=== PATIENT | female | born 1955 | race Caucasian/White ===

== ENCOUNTER → 2021-05-24 12:19 | Outpatient (CLI) | payer MEDICARE, SELFPAY ==
--- NOTE | ~2021-05-24 | XR_ITS ---
XR chest 2V INDICATION: Acute bronchitis. COPD. TECHNIQUE: 2 view chest. FINDINGS: 11/22/2010 There is mild bilateral interstitial prominence and peribronchial cuffing. There is no focal consoli dation, pleural effusion, or pneumothorax. The cardiomediastinal silhouette is borderline. IMPRESSION: 1. Findings most consistent with bronchiolitis versus an atypical or viral pneumonia. Reviewed, dictated and finalized at location A. N GOODS HEMMER IMPRESSION: 1. Findings most consistent with bronchiolitis versus an atypical or viral pne [facility], [place].
== END ==
PROVIDERS: PCP Family Medicine; Visit Provider Physician Assistant
DX: J44.0 Chronic obstructive pulmonary disease with (acute) lower respiratory infection (principal)
CPT/HCPCS: 71046

== ENCOUNTER 2022-08-22 08:20 | Inpatient (IN) | payer MEDICARE, SELFPAY ==
[2022-08-22] VITALS (77 sets, daily range): BP systolic 65–179; BP diastolic 44–130; PULSE 99–140; RESP 14–36; TEMP 37.4–38.1; O2SAT 90–100; BMI 32.7
--- NOTE | 2022-08-22 | ECHO_ITS ---
Patient Info Name: Marco A Sigala Age: 66 years : 1955 Gender: Female Ht: 62 in Wt: 192 lbs BSA: 1.99 m2 HR: 78 bpm BP: 154 / 57 mmHg Technical Quality: Poor Exam Date: 08/22/2022 2:02 PM Exam Location: [facility] Pulmonary Exam Room: ER 5 Patient Status: Inpatient Admit Date: 08/22/2022 Staff Ordering Physician: Chris Sierra MD Broiler Supervisor: Tisha Parker RDCS Attending Provider: Vazquez Gregorio MD Exam Type: CA echo dop color flow w con Study Info Indications - CHF Complete two-dimensional, color flow and Doppler transthoracic echocardiogram is performed with contrast to opacify the left ventricle and to improve the deliniation of the left ventricle endocardial borders. Contrast/Agitated Saline Contrast/Ag. Saline: Definity Amount: 3.00 ml Administered By: Tisha Parker [facility] Existing IV Access: Yes IV Access Condition: patent with no signs of infiltration Reason for Poor Study: patient body habitus Summary 1. Technically suboptimal study due to poor sonographic images. 2. Definity contrast administered improved wall motion interpretation. 3. Left ventricular chamber dimension is normal. 4. Left ventricular systolic function is hyperdynamic, estimated at >70%. 5. The left ventricular diastolic function is indeterminate. 6. The tricuspid valve leaflets are not well visualized. 7. Severe pulmonary hypertension, estimated pulmonary arterial systolic pressure is 62 mmHg. Left Ventricle Technically suboptimal study due to poor sonographic images. Definity contrast administered improved wall motion interpretation. Tissue doppler was not performed. Left ventricular chamber dimension is normal. Left ventricular systolic function is hyperdynamic, estimated at >70%. The left ventricular diastolic function is indeterminate. Right Ventricle Right ventricular chamber dimension is not well visualized. Left Atria Left atrial chamber dimension is normal. Right Atria Right atrial chamber dimension is not well visualized. Aortic Valve The aortic valve is not well visualized. Cannot determine number of aortic valve leaflets. There is no aortic valve stenosis. There is no aortic valve regurgitation. Pulmonic Valve The pulmonic valve is not well visualized. Mitral Valve There is no mitral valve stenosis. There is no mitral valve regurgitation. Tricuspid Valve The tricuspid valve leaflets are not well visualized. Severe pulmonary hypertension, estimated pulmonary arterial systolic pressure is 62 mmHg. Pericardium/Pleural There is no pericardial effusion. Inferior Vena Cava Inferior vena cava is not well visualized. Aorta The aortic root size at the sinus of Valsalva is normal. Left Ventricular Outflow Tract Name Value Normal LVOT 2D LVOT Diameter 1.99 cm Pulmonic Valve Name Value Normal PV Doppler PV Peak Gradient 4 mmHg Mitral Valve
--- NOTE | ~2022-08-22 | CT_ITS ---
EXAMINATION: CT brain wo con DATE: 08/22/2022 14:37 INDICATION: Transient alteration of awareness. TECHNIQUE: Computed tomography (CT) of the head was performed without intravenous contrast. The mA wa s adjusted according to patient size. Iterative reconstruction technique was employed. The dose-lengt h product was 605.33 mGy-cm. COMPARISON: None FINDINGS: There is no intracranial hemorrhage, acute infarction, or abnormal intracranial mass lesion . The ventricles are normal in size. The orbits are normal. There is fluid in the maxillary sinuses a nd mucosal thickening in the paranasal sinuses. The mastoid air cells are normal. IMPRESSION: 1. Normal brain. Reviewed, dictated and finalized at location A. T METAL DUCT INSTALLER APPRENTICE IMPRESSION: 1. Normal brain.
--- NOTE | ~2022-08-22 | XR_ITS ---
EXAMINATION: XR chest PICC line INDICATION: PICC insertion TECHNIQUE: Portable AP chest at 1803 hours COMPARISON: 1218 hours FINDINGS: A right upper extremity PICC has been inserted which ends with its tip at the superior cavo atrial junction. The nasogastric tube is followed as far as the stomach. Its tip is beyond the inferi or margin of the radiograph. The endotracheal tube ends approximately 3.5 cm above the alexx. A mild diffuse interstitial pattern persists. Cardiomegaly is noted. No pleural effusion or pneumothorax. IMPRESSION: 1. Right upper extremity PICC ending with its tip at the superior cavoatrial junction. 2. Diffuse lung disease, consistent with pulmonary edema and/or pneumonia. Reviewed, dictated and finalized at location F. NCT PROFESSOR IMPRESSION: 1. Right upper extremity PICC ending with its tip at the superior cavoatrial ju nction. 2. Diffuse lung disease, consistent with pulmonary edema and/or pneumonia.
--- NOTE | ~2022-08-22 | XR_ITS ---
EXAMINATION: XR chest 1V portable DATE: 08/24/2022 05:49 INDICATION: Respiratory failure. TECHNIQUE: A single frontal view of the chest was obtained. COMPARISON: Chest single view 08/23/2022, chest CT 11/12/2018 FINDINGS: There is a diffuse interstitial pattern in the lungs. No pleural effusion or pneumothorax. The heart size is normal. The endotracheal tube tip is 6.8 cm above the alexx. The nasogastric tube tip is beyond the inferior margin of the radiograph, but at least to the stomach. A right upper extre mity peripherally inserted central venous catheter (PICC) is seen with tip in the superior vena cava. IMPRESSION: 1. Improved diffuse interstitial pattern, consistent mild pulmonary edema. Reviewed, dictated and finalized at location A. OTTER
--- NOTE | ~2022-08-22 | XR_ITS ---
EXAM: XR abdomen NG/feed tube insert DATE: 08/26/2022 16:17 HISTORY: OG placement . COMPARISON: X-ray chest, same date; x-ray abdomen 08/22/2022. FINDINGS: OG tube, tip and side port in the gastric body. Reticular opacities in the lung bases. Nor mal partially visualized bowel gas pattern. No organomegaly. No abnormal abdominal calcification. Deg enerative changes in the spine. IMPRESSION: OG tube, in good position. Reviewed, dictated and finalized at location K. E PLANER IMPRESSION: OG tube, in good position.
--- NOTE | ~2022-08-22 | XR_ITS ---
EXAMINATION: XR chest 1V portable DATE: 08/25/2022 06:04 INDICATION: Respiratory failure TECHNIQUE: frontal view of the chest was obtained. COMPARISON: Chest radiograph dated 08/24/2022 FINDINGS: Endotracheal tube tip 4.8 cm above the alexx. Nasogastric tube extends below the left hemidiaphragm with distal tip collimated off the study. Pulmonary vascular congestion with decrease in the prior mild bilateral increased interstitial patter n. No focal airspace opacities, pleural effusion or pneumothorax. The cardiomediastinal silhouette is normal. IMPRESSION: 1. Near resolution of the diffuse mildly increased interstitial pattern consistent with improving pul monary edema. Reviewed, dictated and finalized at location A. OUT WORKER IMPRESSION: 1. Near resolution of the diffuse mildly increased interstitial pattern consist ent with improving pulmonary edema.
--- NOTE | ~2022-08-22 | US_ITS ---
EXAMINATION: US arterial ankle brachial ind DATE: 08/22/2022 16:40 INDICATION: Peripheral arterial disease. TECHNIQUE: Segmental pressures and plethysmographic and Doppler waveforms of the brachial and lower e xtremity arteries were obtained. COMPARISON: None. FINDINGS: Right and left brachial artery pressures of 101 mm Hg and 91 mm Hg, respectively, are concordant (nor mal difference <= 30 mmHg). The right ankle-brachial index (WILD) is 0.78 (normal >= 0.9-1.0). The right great toe-brachial index (TBI) is 0.29 (normal >= 0.65). Arterial Doppler waveforms are biphasic at the ankle. The left WILD is 0.66. The left TBI is 0.35. Arterial Doppler waveforms are biphasic in posterior tibi al artery and monophasic in dorsalis pedis. IMPRESSION: 1. Mildly decreased right WILD and moderately decreased left WILD, consistent with arterial occlusive d isease. Reviewed, dictated and finalized at location A. ICULUM AND ASSESSMENT DIRECTOR IMPRESSION: 1. Mildly decreased right WILD and moderately decreased left WILD, consistent wit h arterial occlusive disease.
--- NOTE | ~2022-08-22 | XR_ITS ---
XR abdomen NG/feed tube insert INDICATION: Evaluate NG tube position. TECHNIQUE: Limited KUB perform for evaluating NG tube . COMPARISON: No prior studies for comparison. FINDINGS: NG tube tip in the proximal duodenum. Visualized bowel gas pattern is unremarkable. IMPRESSION: 1: NG tube tip in the proximal duodenum. Reviewed, dictated and finalized at location B. D HELP
--- NOTE | ~2022-08-22 | XR_ITS ---
Portable chest x-ray Comparison: 08/27/2022 Clinical History: Respiratory failure Findings: Endotracheal tube, NG tube, and right-sided PICC line are in place. Mild diffuse interstit ial pattern is unchanged. No pleural effusion or pneumothorax. Cardiomediastinal silhouette is stabl e. Bones and soft tissues are unremarkable. Impression: Stable interstitial pattern in the lungs. Correlate for chronic interstitial disease and/or interstit ial edema or infection. Support tubes, as above. Reviewed, dictated and finalized at location . INSTALLER Impression: Stable interstitial pattern in the lungs. Correlate for chronic interstitial di sease and/or interstitial edema or infection. Support tubes, as above.
--- NOTE | ~2022-08-22 | XR_ITS ---
EXAMINATION: XR chest 1V portable DATE: 08/27/2022 05:25 INDICATION: Respiratory failure TECHNIQUE: frontal view of the chest was obtained. COMPARISON: Chest radiograph dated 08/26/2022 FINDINGS: Endotracheal tube tip 3.2 cm above the alexx. Nasogastric tube extends below the left hemidiaphragm with distal tip collimated off the study. Persistent diffuse increased interstitial pattern with peribronchial cuffing. No pleural effusion or pneumothorax. The cardiomediastinal silhouette is normal. IMPRESSION: 1. Unchanged diffuse increased interstitial pattern with peribronchial cuffing, most likely mild pulm onary edema. Reviewed, dictated and finalized at location A. NESS OBJECTS CONSULTANT IMPRESSION: 1. Unchanged diffuse increased interstitial pattern with peribronchial cuffing, most likely mild pulmonary edema.
--- NOTE | ~2022-08-22 | XR_ITS ---
EXAMINATION: XR chest 1V portable DATE: 08/26/2022 06:30 INDICATION: Respiratory failure TECHNIQUE: frontal view of the chest was obtained. COMPARISON: Chest radiograph dated 08/25/2022 FINDINGS: Endotracheal tube tip 4.5 cm above the alexx. Nasogastric tube extends below the left hemidiaphragm with distal tip collimated off the study. Right upper extremity peripherally inserted central venous catheter (PICC) tip at the mid superior vena cava. Pulmonary vascular congestion with unchanged diffuse increased interstitial pattern consistent with p ulmonary edema. New small patchy airspace opacity left midlung zone. No pleural effusion or pneumotho rax. The cardiomediastinal silhouette is normal. IMPRESSION: 1. New patchy airspace opacity left midlung zone which could represent atelectasis, pneumonia or janny fact of superimposed tubing external to the patient 2. Pulmonary vascular congestion and mild pulmonary edema. Reviewed, dictated and finalized at location A. TABLE HARVEST WORKER IMPRESSION: 1. New patchy airspace opacity left midlung zone which could represent atelecta sis, pneumonia or artifact of superimposed tubing external to the patient 2. Pulmonary vascular congestion and mild pulmonary edema.
--- NOTE | ~2022-08-22 | XR_ITS ---
EXAMINATION: XR chest ET placement DATE: 08/26/2022 16:17 INDICATION: Intubation. TECHNIQUE: A single frontal view of the chest was obtained. COMPARISON: Chest single view at 5:35 AM, chest CT 11/12/2018 FINDINGS: There is a diffuse interstitial pattern in the lungs. No pleural effusion or pneumothorax. The heart size is normal. The endotracheal tube tip is 3.2 cm above the alexx. The nasogastric tube tip is beyond the inferior margin of the radiograph, but at least to the stomach. IMPRESSION: 1. Interstitial pattern in the lungs, likely mild pulmonary edema. Reviewed, dictated and finalized at location A. L FRONT DESK CLERK
--- NOTE | ~2022-08-22 | XR_ITS ---
Portable chest x-ray Comparison: 05/24/2021 Clinical History: Shortness of breath Findings: There is central congestive change with mild to moderate pulmonary edema. Patient's head o bscures the upper mediastinum and medial lung apices. No pleural effusions. Cardiomediastinal silhou ette is stable. Bones and soft tissues are unremarkable. Impression: Central congestive change and mild to moderate pulmonary edema. Reviewed, dictated and finalized at location . ATOR PILOT Impression: Central congestive change and mild to moderate pulmonary edema.
--- NOTE | ~2022-08-22 | US_ITS ---
EXAMINATION: US renal BI DATE: 08/22/2022 16:03 INDICATION: Acute kidney injury TECHNIQUE: Multiple grayscale and Doppler ultrasound images of the kidneys were obtained. COMPARISON: None. FINDINGS: The right kidney measures 10.6 x 4.1 x 4.2 cm. The left kidney measures 10.2 x 4.9 x 4.7 cm . The kidneys demonstrate normal parenchymal echogenicity. There is no hydronephrosis. The bladder is decompressed by Dai catheter. IMPRESSION: 1. Normal kidneys without hydronephrosis. Reviewed, dictated and finalized at location F. ICATION INTEGRATOR
--- NOTE | ~2022-08-22 | XR_ITS ---
EXAMINATION: XR chest 1V portable DATE: 08/23/2022 05:34 INDICATION: Respiratory failure. TECHNIQUE: A single frontal view of the chest was obtained. COMPARISON: Chest single view 08/22/2022, chest CT 11/12/2018 FINDINGS: There are mild airspace opacities in the lower lung zones. No pleural effusion or pneumotho rax. The heart size is normal. The endotracheal tube tip is 4.2 cm above the alexx. The nasogastric tube tip is beyond the inferior margin of the radiograph, but at least to the stomach. A right upper extremity peripherally inserted central venous catheter (PICC) is seen with tip at the superior cavoa trial junction. IMPRESSION: 1. Mild airspace opacities in the lower lung zones, consistent with atelectasis versus pneumonia. Reviewed, dictated and finalized at location A. RITY OFFICER
--- NOTE | ~2022-08-22 | XR_ITS ---
Portable chest x-ray Comparison: 08/28/2022 Clinical History: COPD Findings: Endotracheal tube, NG tube, and right PICC line are in satisfactory positions. Stable diff use interstitial prominence in the lungs. Cardiomediastinal silhouette is stable. Bones and soft tis sues are unremarkable. Impression: Stable COPD and/or chronic interstitial disease. Stable support tubes. Reviewed, dictated and finalized at location . APPLICATOR Impression: Stable COPD and/or chronic interstitial disease. Stable support tubes.
--- NOTE | ~2022-08-22 | XR_ITS ---
XR chest ET placement 08/22/2022 12:21 Indication: Postintubation Procedure: AP portable chest Comparison: Comparison to multiple prior studies sequentially, with oldest reviewed study dated 05/22. Findings: Endotracheal tube 4.2 cm above the alexx. NG tube passes into the stomach, tip not visuali zed. Borderline heart size. Bilateral diffuse interstitial infiltrates. No pleural effusion or pneumo thorax. Impression: 1: Diffuse bilateral interstitial infiltrates which may represent edema or pneumonia. Reviewed, dictated and finalized at location B. ICAL PROGRAMMER Impression: 1: Diffuse bilateral interstitial infiltrates which may represent edema or pneu monia.
--- NOTE | 2022-08-22 08:34 | PC.NURSE ---
pt keeps removing nasal cannula. educated pt on the importance of wearing oxygen. pt states she understands, but hates wearing it. pt wearing nasal cannula at this time.
--- NOTE | 2022-08-22 09:01 | ECG_ITS ---
Measurements Intervals [place] Rate: 139 P: 57 OR: 160 QRS: 138 QRSD: 64 T: 46 QT: 267 QTc: 406 Interpretive Statements SINUS TACHYCARDIA RIGHT AXIS DEVIATION POOR R WAVE PROGRESSION, ANTERIOR LEADS MINIMAL Q WAVES- INFERIOR LEADS ABNORMAL ECG NO PREVIOUS ECG AVAILABLE FOR COMPARISON Electronically Signed On 08-22-2022 10:02:20 BLASTING CONTRACT MAN by Eddie Gil D.O.
--- NOTE | 2022-08-22 09:04 | ED.AMS ---
HPI - Altered Mental Status General Chief Complaint: Altered Mental Status <Kaylynn Frank PA-C - Last Filed: 08/22/22 15:02> Stated Complaint: Altered mental status <LUKASZ Huang Last Filed: 08/22/22 15:02> Time Seen by Provider: 08/22/22 08:57 <LUKASZ Huang Last Filed: 08/22/22 15:02> History of Present Illness HPI narrative: Patient is a 66-year-old female with a history of COPD and medication noncompliance here with her daughter for evaluation of altered mental status. Daughter states that patient has not been eating or drinking her normal amount and has been more confused than usual. Patient was found to be satting in the low 80s on room air when EMS came to the residence and was placed on O2, not tolerating nonrebreather mask. She still smokes. Has been complaining of a productive cough, generalized malaise for the past month or so. She has no home O2 requirement. <LUKASZ Huang Last Filed: 08/22/22 15:02> Related Data Allergies/Adverse Reactions: Allergies Allergy/AdvReac Type Severity Reaction Status Date / Time azithromycin Allergy Intermediate HIVES Verified 08/22/22 10:41 acetaminophen Allergy Mild abd Verified 08/05/22 10:51 cramping coconut Allergy Mild Hives Verified 08/22/22 09:15 <LUKASZ Huang Last Filed: 08/22/22 15:02> Review of Systems Review of Systems: Gen.: Denies fevers or chills Eyes: Denies eye pain or visual change ENT: Denies congestion Respiratory: Reports shortness of breath and cough CV: Denies chest pain or palpitations GI: Denies abdominal pain nausea, emesis or diarrhea denies burning, urgency, frequency or hematuria Musculoskeletal: Denies back pain or muscle pain Neuro: Denies numbness, tingling, weakness or focal weakness Skin: Denies rash Except as documented, all other systems reviewed and negative <LUKASZ Huang Last Filed: 08/22/22 15:02> [facility] Past Medical History Medical History: Medical History Allergic rhinitis Asthma Atherosclerotic heart disease of [place] coronary artery without angina pectoris CHF (congestive heart failure), NYHA class I Chronic obstructive pulmonary disease with (acute) exacerbation Depression Hx of skin cancer, basal cell R lower eyelid Hyperlipidemia, unspecified Nicotine dependence, cigarettes, uncomplicated <Kaylynn Frank PA-C - Last Filed: 08/22/22 15:02> Surgical History Surgical History: Surgical History History of D&C 1978 History of surgical removal of skin lesion History of tubal ligation 1988 <Kaylynn Frank PA-C - Last Filed: 08/22/22 15:02> Family History Family History: Family History Mother Renal failure Father Cancer Acute myocardial infarction Heart disease Diabetes mellitus Sibling Diabetes mellitus Anemia Crohn's colitis <Kaylynn Frank PA-C - Last Filed: 08/22/22 15:02> Social History Social History: Social History (Updated 08/22/22 @ 15:01 by Tsering Gann NP) Social History: according to her sister the patient smokes up to 2 packs of cigarettes a day. She has 3 children and is disabled. She is but her is an [id number] log truck driver. According to her sister the patient used to drink heavily but has not drank recently. She has no dominated power banking attorney. code status full code Smoking packs per day: 2 Smoking cigarettes per day: 40.0 Years smoked: 30 Smoking pack-years: 60.00 Smoking status: Current every day smoker Tobacco type: cigarettes Second hand tobacco smoke exposure: Yes Alcohol intake: unknown Alcohol use details: on occasion Substance use: unknown Substance use type: does not use Lack of Transportatio
[2022-08-22 09:40] LABS: Basophils Absolute Auto 0.1 K/mm3 (0.0-0.1); Basophils Percent Auto 0.6 % (0.2-1.2); Eosinophils Percent Auto 0.1 % (0-4.4); Hematocrit 61.2 % (37.0-47.0); Immature Granulocyte Absolute 0.05 K/mm3 (0.00-0.031); Immature Granulocyte Percent A 0.3 % (0-0.5); Lymphocytes Absolute Auto 0.71 K/mm3 (0.9-3.2); Lymphocytes Percent Auto 4.6 % (18.3-44.2); Mean Corpuscular Hemoglobin 28.7 pg (26-34); Mean Corpuscular Volume 92.4 fl (80-100); Mean Platelet Volume 11.1 fl (7.4-10.4); Monocytes Absolute Auto 0.8 K/mm3 (0.1-0.6); Neutrophils Absolute Auto 13.9 K/mm3 (1.3-6.7); Neutrophils Percent Auto 89.4 % (45.5-73.1); Platelet Count Result 190 k/mm3 (150-375); Red Blood Count 6.62 M/mm3 (4.2-5.4); Red Cell Distribution Width 17.4 % (11.5-14.5); White Blood Count 15.5 K/mm3 (4.5-10.0)
--- NOTE | 2022-08-22 09:40 | PC.NURSE ---
Pt. ripping off their oxygen, Pt. not cooperating with blood draw, Pt. removed IV. ERP notified and ordered 0.25mg of Ativan via IVP verbal order readback.
[2022-08-22] MEDS: SODIUM CHLORIDE 0.9% IV 1,000 ML 999 ML IV CONT (09:43)
[2022-08-22] MEDS: LORazepam INJ (*CRX) 2 MG/ML VIAL 0.25 MG IV PUSH (09:43)
[2022-08-22 09:59] LABS: Alanine Aminotransferase 15 U/L (6-35); Alkaline Phosphatase 169 U/L (38-126); Anion Gap 9 mmol/L (8-16); Aspartate Amino Transferase 21 U/L (14-36); Bilirubin,Total 0.8 mg/dL (0.2-1.3); Blood Urea Nitrogen 23 mg/dL (7-17); Calcium 9.1 mg/dL (8.4-10.2); Carbon Dioxide 24 mmol/L (22-30); Chloride 96 mmol/L (98-107); Estimated CRCL calculation 40 ml/min; Estimated Glomerular Filt Rate 41; Glucose 135 mg/dL (65-110); Potassium 5.3 mmol/L (3.4-5.0); Sodium 129 mmol/L (137-145)
[2022-08-22] MEDS: IPRATROPIUM BR 0.02% INH SOLN 0.5 MG/2.5 ML VIAL 1 MG INHALATION (10:00)
[2022-08-22 10:12] LABS: Lactic Acid Reflex 1.5 mmol/L (0.7-2.0)
[2022-08-22 10:21] LABS: Influenza A QL RT-PCR Negative (Negative); Influenza B QL RT-PCR Negative (Negative); SARS-CoV-2 RNA PCR Negative
--- NOTE | 2022-08-22 10:30 | PC.NURSE ---
Pt. continues to be uncooperative and refusing to keep oxygen on leading to patient drop below 90%. ERP notified. ERP ordered ketamine IVP. See MAR orders.
--- NOTE | 2022-08-22 10:33 | PCRCNOTE ---
unable to obtain ABG x 3 attempts Pt. will not hold still. R.N. aware. Continuous neb tx started.
[2022-08-22] MEDS: KETAMINE HCL (*CRX) 500 MG/10 ML VIAL 50 MG IV PUSH (10:34)
[2022-08-22 11:33] LABS: Alveolar/Arterial O2 Gradient 210.8 mmHg; Base Excess ABG -9.8 mEq/l (+/-2.0); Fractional Inspired Oxygen 52 %; HCO3 ABG 17.4 mEq/l (22.0-26.0); Oxygen Content ABG 18.7 %vol (16.0-22.0); Oxygen Saturation ABG 97.3 % (95.0-100.0); Oxyhemoglobin 92.1 % THb (90.0-100.0); PCO2 ABG 42.3 mmHg (35.0-45.0); PO2 ABG 112.6 mmHg (80.0-100.0); PO2 FiO2 Ratio Arterial Blood 2.17 %; Total Hemoglobin 14.3 g/dL (12.0-18.0)
[2022-08-22 11:34] LABS: Device OTHER DEVICE; Modified Allen's Test Pass; Site Drawn RIGHT RADIAL; pH ABG 7.231 (7.350-7.450)
[2022-08-22] MEDS: DOXYCYCLINE 100 MG/NS 100 ML 100 MG/100 ML BAG IVPB ×2 (11:37→20:13)
--- NOTE | 2022-08-22 11:45 | PC.NURSE ---
Pt. uncooperative with bipap, Pt. immediately ripped off mask. ERP aware. Preparing for intubation to secure airway
--- NOTE | 2022-08-22 11:58 | PC.NURSE ---
1158 20mg etomidate given IVP 1159 60mg rocuronium given IVP 1200 Pt. intubated 7.5 et tube, 21 at the lip
[2022-08-22] MEDS: PROPOFOL IV EMULSION 100 ML 2.62 MG IV CONT (12:04)
--- NOTE | 2022-08-22 12:43 | PM.IMHP ---
H&P: HPI History of Present Illness Date/Time: 08/22/22 12:43 Chief Complaint: Altered mental status Narrative: this is a 66-year-old female patient who has a history of tobacco abuse, COPD with asthma and bronchitis, CHF and chronic hypoxia. The patient does have oxygen at home but does not use it all the time. According to her sister who is at the bedside the patient has not been eating or drinking her normal amount and has been more confused. The patient still continues to smoke at least 2 packs of cigarettes per day. Her white count is 15.5. Neutrophil 89.4. Arterial blood gases pH 7.179 CO2 72.8 PO2 75.1. Bicarb 26.5. Sodium 129 potassium 5.3 chloride 96. BUN is 23 creatinine is 1.3 no previous creatinine for comparison. The patient is negative for influenza a B and COVID. Head CT shows a normal brain. Diffuse bilateral interstitial infiltrates which may represent edema or pneumonia. Today the patient was found with O2 saturation around 80% in the ER room and the patient was placed on a BiPAP. The patient was very confused and was not tolerating the BiPAP. The patient was intubated in the emergency room. The business broker had been consulted. He came to the emergency room to evaluate the patient. The patient was given nebulizer treatments common Ativan Rocephin, doxycycline, IV fluids, and IV Lasix. the patient had clear thin secretions in her oral airway that we suction with a yonker the patient is being admitted to inpatient status on the date of service of 08/22/2022. Review of Systems Review of Systems: See HPI [facility] Past Medical History Medical History Allergic rhinitis Asthma Atherosclerotic heart disease of [place] coronary artery without angina pectoris CHF (congestive heart failure), NYHA class I Chronic obstructive pulmonary disease with (acute) exacerbation Depression Hx of skin cancer, basal cell R lower eyelid Hyperlipidemia, unspecified Nicotine dependence, cigarettes, uncomplicated Surgical History Surgical History History of D&C 1978 History of surgical removal of skin lesion History of tubal ligation 1988 Family History Family History Mother Renal failure Father Cancer Acute myocardial infarction Heart disease Diabetes mellitus Sibling Diabetes mellitus Anemia Crohn's colitis Social History Social History (Updated 08/22/22 @ 15:01 by Tsering Gann NP) Social History: according to her sister the patient smokes up to 2 packs of cigarettes a day. She has 3 children and is disabled. She is but her is an [id number] local company intermodal truck driver. According to her sister the patient used to drink heavily but has not drank recently. She has no dominated power united states attorney. code status full code Smoking packs per day: 1 Smoking cigarettes per day: 20.0 Years smoked: 30 Smoking pack-years: 30.00 Smoking status: Current every day smoker Tobacco type: cigarettes Second hand tobacco smoke exposure: Yes Alcohol intake: unknown Alcohol use details: on occasion Substance use: unknown Substance use type: does not use Lack of Transportation: YES Lack of Food: Never True Current Housing: I Have Housing Concerned About Future Housing: No Difficulty Paying Gas/Electric Bills: No Difficulty Paying for Meds: No Currently Unemployed: YES Education: Trade/Vocational Certificate Difficulty w/ Childcare or Family Care: No Living arrangements: with family Occupation/Education: unemployed Gender identity (if verbalized by the patient): Female Sexual Orientation (if Verbalized by the Patient): Straight or Heterosexual Spiritual care concerns: No Meds Home Medications and Allergies Home Medications Medication Instructions Recorded Confirmed Type diphenhydra
--- NOTE | 2022-08-22 12:50 | WPDCNINT ---
Assessment and Plan Assessment and plan (1) Acute respiratory failure: Code(s): J96.00 - Acute respiratory failure, unspecified whether with hypoxia or hypercapnia Status: Acute Assessment and Plan: Acute multifactorial Respiratory failure secondary to COPD exacerbation, CHF and possible community-acquired pneumonia patient now intubated and on mechanical ventilation chest x-ray reviewed ventilator settings reviewed. repeat ABG ordered pending Continue full mechanical ventilation support to prevent hypoxemia/hypercarbia and end organ damage. BNP pending Low tidal volume ventilation strategy to prevent volutrauma Will attempt SBT when ready to wean. Bronchodilators (2) CHF (congestive heart failure), NYHA class I: Code(s): I50.9 - Heart failure, unspecified Status: Acute Assessment and Plan: patient has history of lower extremity edema and now presented with chest x-ray suggestive of pulmonary edema BNP pending Lasix IV given check echocardiogram (3) Chronic obstructive pulmonary disease with (acute) lower respiratory infection: Code(s): J44.0 - Chronic obstructive pulmonary disease with (acute) lower respiratory infection Status: Acute Assessment and Plan: patient has history of COPD. She has long history of heavy smoking. diffuse wheezing on exam IV Solu-Medrol q.6 hours bronchodilator empiric antibiotics as below (4) Community acquired pneumonia: Code(s): J18.9 - Pneumonia, unspecified organism Status: Acute Assessment and Plan: check procalcitonin sputum and blood cultures check urine Legionella and pneumococcal antigen empiric Rocephin and doxycycline (5) Elevated serum creatinine: Code(s): R79.89 - Other specified abnormal findings of blood chemistry Status: Acute Assessment and Plan: patient presented with elevated creatinine of 1.3. baseline unknown check urine electrolytes check CK level monitor urine output electrolytes and creatinine Lasix for pulmonary edema renal ultrasound (6) Hyperkalemia: Code(s): E87.5 - Hyperkalemia Status: Acute Assessment and Plan: presented with potassium of 5.3. Likely combination of acidosis, elevated creatinine and patient also on supplemental potassium at home patient now intubated and on mechanical ventilation. repeat BMP ordered. if still elevated I will treat her (7) Altered mental status: Code(s): R41.82 - Altered mental status, unspecified Status: Acute Assessment and Plan: patient presented with confusion although the exam was nonfocal as per sign-out from ED provider now she sedated propofol check head CT and ammonia level (8) Peripheral arterial disease: Code(s): I73.9 - Peripheral vascular disease, unspecified Status: Acute Assessment and Plan: on exam patient appears to have a PAD likely secondary to heavy and long history of smoking check ABIs Plan DVT prophylaxis - Lovenox Stress ulcer prophylaxis - PPI Nutrition - NPO Code Status - Full Code I spoke to patient's sister at bedside and updated her with patient's status and current treatment plan. I answered all questions Total Critical Care Time - 45 minutes Due to a high probability of clinically significant, life threatening deterioration, the patient required my highest level of preparedness to intervene emergently and I personally spent this critical care time directly and personally managing the patient. This critical care time included obtaining a history; examining the patient; pulse oximetry; ordering and review of studies; arranging urgent treatment with development of a management plan; evaluation of patient's response to treatment; frequent reassessment; and discussions with other providers. It was exclusive of separately billable procedures and treating other patients and teaching time. Please see Assessment and Plan
[2022-08-22 12:59] LABS: Appearance Urine Cloudy (Clear); Bacteria Urine None Seen /hpf; Bilirubin Urine 2+ (Negative); Blood Urine 2+ (Negative); Color Urine Dark Yellow (Yellow); Glucose Urine UA Negative (Negative); Hyaline Casts Urine Present /lpf; Ketones Urine Negative (Negative); Leukocyte Esterase Ur Negative LEU/UL (Negative); Nitrate Urine Negative (Negative); Non Pathogenic Casts >20; Protein Urine 2+ mg/dL (Negative); Specific Grav Ur 1.019 (1.001-1.035); Squamous Epithelial Cell Urine Moderate /hpf (Few); WBC Urine 0-5 /hpf
[2022-08-22 13:07] LABS: Add Urine Microscopic? YES
[2022-08-22 13:53] LABS: Alveolar/Arterial O2 Gradient 126.4 mmHg; Base Excess ABG -4.6 mEq/l (+/-2.0); Fractional Inspired Oxygen 40 %; HCO3 ABG 26.5 mEq/l (22.0-26.0); Oxygen Content ABG 25.5 %vol (16.0-22.0); Oxygen Saturation ABG 90.9 % (95.0-100.0); Oxyhemoglobin 88.5 % THb (90.0-100.0); PO2 ABG 75.1 mmHg (80.0-100.0); PO2 FiO2 Ratio Arterial Blood 1.88 %; Total Hemoglobin 20.5 g/dL (12.0-18.0)
[2022-08-22 13:55] LABS: pH ABG 7.179 (7.350-7.450)
[2022-08-22 13:56] LABS: Arterial Blood Gas PEEP 7 cmH2O; Arterial Blood Gas Tidal Volume 400 ml; Arterial Blood Gas Vent Mode CMV; Arterial Blood Gas Ventilator rate 16 /MIN; Device VENTILATOR; Modified Allen's Test Pass; PCO2 ABG 72.8 mmHg (35.0-45.0); Site Drawn RIGHT RADIAL
[2022-08-22] MEDS: FUROSEMIDE INJ 40 MG/4 ML VIAL IV PUSH (14:17)
[2022-08-22] MEDS: methylPREDNISolone SOD SUCC 125 MG VIAL IV PUSH (14:17)
--- NOTE | 2022-08-22 14:25 | P.PNIM_ITS ---
Progress Note: A&P Assessment and Plan (1) Acute respiratory failure: Code(s): J96.00 - Acute respiratory failure, unspecified whether with hypoxia or hypercapnia Status: Acute Assessment and Plan: Acute multifactorial Respiratory failure secondary to COPD exacerbation, CHF and possible community-acquired pneumonia patient now intubated and on mechanical ventilation chest x-ray reviewed ventilator settings reviewed. repeat ABG ordered pending Continue full mechanical ventilation support to prevent hypoxemia/hypercarbia and end organ damage. BNP pending Low tidal volume ventilation strategy to prevent volutrauma Will attempt SBT when ready to wean. Bronchodilators (2) CHF (congestive heart failure), NYHA class I: Code(s): I50.9 - Heart failure, unspecified Status: Acute Assessment and Plan: patient has history of lower extremity edema and now presented with chest x-ray suggestive of pulmonary edema BNP pending Lasix IV given check echocardiogram (3) Chronic obstructive pulmonary disease with (acute) lower respiratory i nfection: Code(s): J44.0 - Chronic obstructive pulmonary disease with (acute) lower respiratory infection Status: Acute Assessment and Plan: patient has history of COPD. She has long history of heavy smoking. diffuse wheezing on exam IV Solu-Medrol q.6 hours bronchodilator empiric antibiotics as below (4) Community acquired pneumonia: Code(s): J18.9 - Pneumonia, unspecified organism Status: Acute Assessment and Plan: check procalcitonin sputum and blood cultures check urine Legionella and pneumococcal antigen empiric Rocephin and doxycycline (5) Elevated serum creatinine: Code(s): R79.89 - Other specified abnormal findings of blood chemistry Status: Acute Assessment and Plan: patient presented with elevated creatinine of 1.3. baseline unknown check urine electrolytes check CK level monitor urine output electrolytes and creatinine Lasix for pulmonary edema renal ultrasound (6) Hyperkalemia: Code(s): E87.5 - Hyperkalemia Status: Acute Assessment and Plan: presented with potassium of 5.3. Likely combination of acidosis, elevated creatinine and patient also on supplemental potassium at home patient now intubated and on mechanical ventilation. repeat BMP ordered. if still elevated I will treat her (7) Altered mental status: Code(s): R41.82 - Altered mental status, unspecified Status: Acute Assessment and Plan: patient presented with confusion although the exam was nonfocal as per sign-out from ED provider now she sedated propofol check head CT and ammonia level (8) Peripheral arterial disease: Code(s): I73.9 - Peripheral vascular disease, unspecified Status: Acute Assessment and Plan: on exam patient appears to have a PAD likely secondary to heavy and long history of smoking check ABIs Plan DVT prophylaxis - Lovenox Stress ulcer prophylaxis - PPI Nutrition - NPO Code Status - Full Code I spoke to patient's sister at bedside and updated her with patient's status and current treatment plan. I answered all questions Total Critical Care Time - 45 minutes Due to a high probability of clinically significant, life threatening deterioration, the patient required my highest level of preparedness to intervene emergently and I personally spent this critical care time directly and personally managing the patient. This critical care time inc
--- NOTE | 2022-08-22 15:04 | ADMGEN ---
This patient, Marco A Sigala, was admitted to Intensive Care Unit-8 at 1445. Patient/family oriented to hospital policies and general routines including ID bracelet, bed and alarms, visiting hours, pain management, procedures, bathroom and other care routines, personal items, smoking policy, room service/diet, and visiting hours. Information on how to activate the Rapid Response Team has been discussed. Patient/Family are encouraged to report perceived risks to care and to ask questions if they do not understand what they are told or what they should do.
[2022-08-22] MEDS: IPRATROPIUM BR 0.02% INH SOLN 0.5 MG/2.5 ML VIAL INHALATION ×2 (15:25→20:30)
[2022-08-22] MEDS: ALBUTEROL SULFATE NEB 2.5 MG/3 ML INH INHALATION ×2 (15:25→20:30)
[2022-08-22 15:56] LABS: Creatinine Urine 141.6 mg/dL
[2022-08-22 16:06] LABS: Sodium Urine Random 64 meq/L
[2022-08-22 16:13] LABS: Alveolar/Arterial O2 Gradient 57.2 mmHg; Base Excess ABG -2.6 mEq/l (+/-2.0); HCO3 ABG 23.9 mEq/l (22.0-26.0); Oxygen Content ABG 27.3 %vol (16.0-22.0); Oxygen Saturation ABG 99.1 % (95.0-100.0); Oxyhemoglobin 96.7 % THb (90.0-100.0); PCO2 ABG 47.1 mmHg (35.0-45.0); PO2 ABG 182.5 mmHg (80.0-100.0); PO2 FiO2 Ratio Arterial Blood 4.56 %; Total Hemoglobin 19.9 g/dL (12.0-18.0); pH ABG 7.324 (7.350-7.450)
[2022-08-22 16:20] LABS: Device VENTILATOR; Fractional Inspired Oxygen 60 %; Modified Allen's Test Pass; Site Drawn RIGHT RADIAL
[2022-08-22 16:22] LABS: Arterial Blood Gas PEEP 7 cmH2O; Arterial Blood Gas Tidal Volume 400 ml; Arterial Blood Gas Vent Mode CMV; Arterial Blood Gas Ventilator rate 24 /MIN
[2022-08-22 16:43] LABS: Creatinine Urine 94.3 mg/dL
[2022-08-22 16:46] LABS: Potassium Urine Random 51.1 meq/L
[2022-08-22 16:58] LABS: Ammonia < 9 umol/L (9-30)
[2022-08-22 17:03] LABS: Glucose Point of Care 186 mg/dl (65-105)
[2022-08-22 17:06] LABS: Anion Gap 6 mmol/L (8-16); Blood Urea Nitrogen 26 mg/dL (7-17); Calcium 8.6 mg/dL (8.4-10.2); Carbon Dioxide 28 mmol/L (22-30); Chloride 97 mmol/L (98-107); Creatine Kinase 48 U/L (30-135); Estimated CRCL calculation 42 ml/min; Estimated Glomerular Filt Rate 45; Glucose 144 mg/dL (65-110); Potassium 5.2 mmol/L (3.4-5.0); Sodium 131 mmol/L (137-145)
[2022-08-22 17:16] LABS: Procalcitonin 0.6 ng/mL
[2022-08-22 17:19] LABS: NT Pro B Type Natriuretic Pept 8770 pg/mL (19.9-100); Troponin I 0.305 ng/mL (0.000-0.034)
[2022-08-22 17:30] LABS: Thyroid Stimulating Hormone Reflex 0.349 uIU/mL (0.465-4.68)
[2022-08-22] MEDS: PROPOFOL IV EMULSION 100 ML 15.73 MG IV CONT (17:58)
[2022-08-22 18:28] LABS: Free T4 Free Thyroxine Reflex 1.19 ng/dL (0.78-2.19)
[2022-08-22] MEDS: NOREPINEPHRINE 8 MG/D5W 250 ML 8 MG/250 ML BAG 9.38 MG IV CONT (19:40)
[2022-08-22 21:14] LABS: Total Triiodothyronine (T3) 0.73 NG/ML (0.97-1.69)
[2022-08-22] MEDS: CENTRAL LINE FLUSH 10 ML IV PUSH (22:04)
[2022-08-23] VITALS (69 sets, daily range): BP systolic 80–119; BP diastolic 50–93; PULSE 64–117; RESP 24–28; TEMP 36.4–37.4; O2SAT 92–98
[2022-08-23 00:15] LABS: Glucose Point of Care 275 mg/dl (65-105)
[2022-08-23] MEDS: INSULIN ASPART (*BKC) 100 UNITS/ML SUB-Q ×5 (00:23→16:40)
[2022-08-23 00:45] LABS: Anion Gap 5 mmol/L (8-16); Blood Urea Nitrogen 31 mg/dL (7-17); Calcium 8.7 mg/dL (8.4-10.2); Carbon Dioxide 26 mmol/L (22-30); Chloride 101 mmol/L (98-107); Estimated CRCL calculation 50 ml/min; Estimated Glomerular Filt Rate 56; Glucose 246 mg/dL (65-110); Potassium 4.8 mmol/L (3.4-5.0); Sodium 132 mmol/L (137-145)
[2022-08-23] MEDS: ALBUTEROL SULFATE NEB 2.5 MG/3 ML INH INHALATION ×4 (02:00→20:36)
[2022-08-23] MEDS: IPRATROPIUM BR 0.02% INH SOLN 0.5 MG/2.5 ML VIAL INHALATION ×4 (02:00→20:36)
[2022-08-23] MEDS: PROPOFOL IV EMULSION 100 ML 13.11 MG IV CONT (03:00)
[2022-08-23] MEDS: NOREPINEPHRINE 8 MG/D5W 250 ML 8 MG/250 ML BAG 31.88 MG IV CONT (05:16)
[2022-08-23 06:08] LABS: Alveolar/Arterial O2 Gradient 211.5 mmHg; Base Excess ABG 0.7 mEq/l (+/-2.0); Carboxyhemoglobin 0.2 % THb (0-2.0); Fractional Inspired Oxygen 50 %; Methemoglobin ABG 0.7 %THb (0-1.5); Oxygen Content ABG 26.5 %vol (16.0-22.0); Oxygen Saturation ABG 95.7 % (95.0-100.0); PCO2 ABG 53.5 mmHg (35.0-45.0); PO2 ABG 84.8 mmHg (80.0-100.0); Reduced Hemoglobin 4.1 %THb (0-5.0); Total Hemoglobin 19.9 g/dL (12.0-18.0); pH ABG 7.337 (7.350-7.450)
[2022-08-23 06:11] LABS: Alanine Aminotransferase 15 U/L (6-35); Albumin Level 3.8 g/dL (3.5-5.1); Alkaline Phosphatase 153 U/L (38-126); Anion Gap 4 mmol/L (8-16); Arterial Blood Gas PEEP 7 cmH2O; Arterial Blood Gas Tidal Volume 400 ml; Arterial Blood Gas Vent Mode CMV; Arterial Blood Gas Ventilator rate 24 /MIN; Aspartate Amino Transferase 21 U/L (14-36); Bilirubin,Total 0.6 mg/dL (0.2-1.3); Blood Urea Nitrogen 30 mg/dL (7-17); Calcium 9.1 mg/dL (8.4-10.2); Carbon Dioxide 29 mmol/L (22-30); Chloride 97 mmol/L (98-107); Device VENTILATOR; Estimated CRCL calculation 56 ml/min; Estimated Glomerular Filt Rate > 60; Glucose 232 mg/dL (65-110); Magnesium 2.1 mg/dL (1.6-2.3); Modified Allen's Test Pass; Potassium 4.4 mmol/L (3.4-5.0); Site Drawn RIGHT RADIAL; Sodium 130 mmol/L (137-145)
[2022-08-23 06:16] LABS: Basophils Absolute Auto 0.1 K/mm3 (0.0-0.1); Basophils Percent Auto 0.4 % (0.2-1.2); Eosinophils Percent Auto 0.1 % (0-4.4); Hematocrit 57.1 % (37.0-47.0); Hemoglobin 17.9 g/dL (12.0-15.0); Immature Granulocyte Absolute 0.05 K/mm3 (0.00-0.031); Immature Granulocyte Percent A 0.3 % (0-0.5); Lymphocytes Absolute Auto 0.56 K/mm3 (0.9-3.2); Lymphocytes Percent Auto 3.8 % (18.3-44.2); Mean Corpuscular HGB Conc 31.3 g/dl (32-36); Mean Corpuscular Hemoglobin 28.7 pg (26-34); Mean Corpuscular Volume 91.7 fl (80-100); Mean Platelet Volume 11.2 fl (7.4-10.4); Monocytes Absolute Auto 0.9 K/mm3 (0.1-0.6); Monocytes Percent Auto 6.2 % (2.6-8.5); Neutrophils Absolute Auto 13.1 K/mm3 (1.3-6.7); Neutrophils Percent Auto 89.2 % (45.5-73.1); Nucleated Red Blood Cells Perc 0.1 % (0.0-0.2); Platelet Count Result 225 k/mm3 (150-375); Red Blood Count 6.23 M/mm3 (4.2-5.4); Red Cell Distribution Width 16.4 % (11.5-14.5); White Blood Count 14.7 K/mm3 (4.5-10.0)
[2022-08-23] MEDS: CENTRAL LINE FLUSH 10 ML IV PUSH ×3 (06:29→20:06)
[2022-08-23] MEDS: MIDAZOLAM HCL (*CRX) 2 MG/2 ML VIAL 4 MG IV PUSH (07:32)
--- NOTE | 2022-08-23 07:38 | WPDINTPN ---
Progress Note: A&P Assessment and Plan (1) Acute respiratory failure: Code(s): J96.00 - Acute respiratory failure, unspecified whether with hypoxia or hypercapnia Status: Acute Assessment and Plan: Acute multifactorial Respiratory failure secondary to COPD exacerbation, CHF and possible community-acquired pneumonia patient now intubated and on mechanical ventilation chest x-ray reviewed and shows improvement in bilateral diffuse infiltrates ventilator settings and ABG reviewed - increase tidal volume to 450 Continue full mechanical ventilation support to prevent hypoxemia/hypercarbia and end organ damage. BNP elevated at 8770 Low tidal volume ventilation strategy to prevent volutrauma not ready for weaning at this time (2) CHF (congestive heart failure), NYHA class I: Code(s): I50.9 - Heart failure, unspecified Status: Acute Assessment and Plan: patient has history of lower extremity edema and now presented with chest x-ray suggestive of pulmonary edema BNP 8770 Lasix IV given on admission. Hold Lasix at this time due to shock echocardiogram Summary ? 1. Technically suboptimal study due to poor sonographic images. ? 2. Definity contrast administered improved wall motion interpretation. ? 3. Left ventricular chamber dimension is normal. ? 4. Left ventricular systolic function is hyperdynamic, estimated at >70%. ? 5. The left ventricular diastolic function is indeterminate. ? 6. The tricuspid valve leaflets are not well visualized. ? 7. Severe pulmonary hypertension, estimated pulmonary arterial systolic pressure is 62 mmHg. (3) Chronic obstructive pulmonary disease with (acute) lower respiratory infection: Code(s): J44.0 - Chronic obstructive pulmonary disease with (acute) lower respiratory infection Status: Acute Assessment and Plan: patient has history of COPD. She has long history of heavy smoking. diffuse wheezing on exam continue IV Solu-Medrol continue q.6 hours bronchodilator continue empiric antibiotics as below (4) Community acquired pneumonia: Code(s): J18.9 - Pneumonia, unspecified organism Status: Acute Assessment and Plan: procalcitonin level was intermediate sputum and blood cultures are pending pending urine Legionella and pneumococcal antigen continue empiric Rocephin and doxycycline (5) Elevated serum creatinine: Code(s): R79.89 - Other specified abnormal findings of blood chemistry Status: Acute Assessment and Plan: patient presented with elevated creatinine of 1.3. baseline unknown normal CK level monitor urine output electrolytes and creatinine Lasix for pulmonary edema was given admission renal ultrasound did not show any hydronephrosis creatinine has now normalized . monitor urine output electrolytes and creatinine (6) Hyperkalemia: Code(s): E87.5 - Hyperkalemia Status: Acute Assessment and Plan: presented with potassium of 5.3. Likely combination of acidosis, elevated creatinine and patient also on supplemental potassium at home now resolved (7) Altered mental status: Code(s): R41.82 - Altered mental status, unspecified Status: Acute Assessment and Plan: patient presented with confusion although the exam was nonfocal as per sign-out from ED provider now she sedated propofol normal head CT and ammonia level (8) Peripheral arterial disease: Code(s): I73.9 - Peripheral vascular disease, unspecified Status: Acute Assessment and Plan: on exam patient appears to have a PAD likely secondary to heavy and long history of smoking ABIs confirm Mildly decreased right WILD and moderately decreased left WILD, consistent with arterial occlusive disease. (9) Hyperglycemia: Code(s): R73.9 - Hyperglycemia, unspecified Status: Acute Assessment and Plan: increase sliding scale and Lantus (10) Shock: Code(s)
[2022-08-23] MEDS: FENTANYL 2,500MCG/NS250ML(*CRX 2,500 MCG/250 ML BAG IV CONT (07:45)
[2022-08-23] MEDS: DOXYCYCLINE 100 MG/NS 100 ML 100 MG/100 ML BAG IVPB ×2 (08:46→20:00)
[2022-08-23] MEDS: cefTRIAXone 2 GM in SODIUM CHLORIDE 0.9% IV 100 ML 200 ML IVPB (08:46)
[2022-08-23] MEDS: INSULIN GLARGINE (*BKC) 100 UNITS/ML 10 UNITS SUB-Q (08:47)
[2022-08-23] MEDS: ENOXAPARIN 40 MG/0.4 ML SYRINGE SUB-Q (08:50)
[2022-08-23] MEDS: PROPOFOL IV EMULSION 100 ML 12.63 MG IV CONT ×2 (08:51→13:36)
[2022-08-23] MEDS: methylPREDNISolone SOD SUCC 125 MG VIAL 60 MG IV PUSH (08:51)
[2022-08-23] MEDS: PANTOPRAZOLE SODIUM IV 40 MG VIAL IV PUSH (08:51)
[2022-08-23] MEDS: MINERAL OIL/WHITE PETROLATUM OINTMENT 1 APPLIC EACH EYE ×2 (09:03→20:06)
[2022-08-23 09:53] LABS: Glucose Point of Care 215 mg/dl (65-105)
[2022-08-23] MEDS: ASPIRIN 325 MG TABLET FEED TUBE (10:13)
[2022-08-23 10:40] LABS: Triglycerides 143 mg/dL (<150)
--- NOTE | 2022-08-23 12:28 | PM.IMPN ---
Progress Note: A&P Assessment and Plan (1) Acute respiratory failure: Code(s): J96.00 - Acute respiratory failure, unspecified whether with hypoxia or hypercapnia Status: Acute Assessment and Plan: The patient is brought in for altered mental status. She has home O2 and wears this periodically. She continued to smoke 2ppd. ABG on admission 7.23/42/112 on 8L. She had trouble tolerating any assistance. Her condition worsened requiring intubation. CXR showing congestive changes. She was admitted to ICU. She has acute respiratory failure secondary to COPD exacerbation, CHF, untreated STAN and/or CAP. She is on neb treatments, IV steroids, abx and intermittent Lasix. CXR showing improvement. She remains intubated and sedated. Appreciate drug counselor input. (2) Shock: Code(s): R57.9 - Shock, unspecified Status: Acute Assessment and Plan: The patient's BP dropped once she was on sedation. She was started on Levophed and was titrated up to maintain stable BP. Better today. Wean Levophed as blood pressure tolerates. (3) CHF (congestive heart failure), NYHA class I: Code(s): I50.9 - Heart failure, unspecified Status: Acute Assessment and Plan: CXR suggestive of pulmonary edema and BNP 8770. Echo with EF 70% and indeterminate diastolic function. She has severe pHTN. Lasix IV given on admission. Continue periodic lasix dosing as tolerated (4) Chronic obstructive pulmonary disease with (acute) lower respiratory infection: Code(s): J44.0 - Chronic obstructive pulmonary disease with (acute) lower respiratory infection Status: Acute Assessment and Plan: She has a history of COPD from a long and continued hx of smoking. Continue IV Solu-Medrol and q.6 hours bronchodilator. Continue empiric antibiotics. (5) Community acquired pneumonia: Code(s): J18.9 - Pneumonia, unspecified organism Status: Acute Assessment and Plan: CXR as mentioned above. Procalcitonin level was intermediate. Sputum and blood cultures are pending. Urine Legionella and pneumococcal antigen also pending. Continue empiric Rocephin and doxycycline. Follow up culture results (6) Elevated serum creatinine: Code(s): R79.89 - Other specified abnormal findings of blood chemistry Status: Acute Assessment and Plan: Patient presented with elevated creatinine of 1.3. Baseline unknown. Normal CK level. Creatinine back down to normal. Suspect mild ATN. Follow (7) Hyperkalemia: Code(s): E87.5 - Hyperkalemia Status: Acute Assessment and Plan: Patient presented with potassium of 5.3. Likely combination of acidosis, elevated creatinine and patient also on supplemental potassium at home. Resolved now (8) Altered mental status: Code(s): R41.82 - Altered mental status, unspecified Status: Acute Assessment and Plan: Patient presented with confusion although the exam was nonfocal as per sign-out from ED provider. Normal head CT and ammonia level. Now she is sedated propofol. monitor closely once off sedation (9) Peripheral arterial disease: Code(s): I73.9 - Peripheral vascular disease, unspecified Status: Acute Assessment and Plan: Patient with mild to moderate PAD noted by WILD's likely secondary to heavy and long history of smoking. Medical management planned. (10) Hyperglycemia: Code(s): R73.9 - Hyperglycemia, unspecified Status: Acute Assessment and Plan: No hx of DM. She is on steroids. Continue sliding scale and Lantus. Plan DVT prophylaxis - Lovenox Stress ulcer prophylaxis - PPI Nutrition - Tube feeds Code Status - Full Code Subjective Date/time seen: 08/23/22 12:28 Interval history: 66yo female with CHF, COPD and CAD here for altered mentals status. Patient currently intubated and sedated. She is fentanyl propofol. Received a dose of Versed earlier toda
[2022-08-23 12:32] LABS: Glucose Point of Care 218 mg/dl (65-105)
[2022-08-23 15:54] LABS: Troponin I 0.157 ng/mL (0.000-0.034)
[2022-08-23 18:55] LABS: Glucose Point of Care 220 mg/dl (65-105)
[2022-08-23] MEDS: NOREPINEPHRINE 8 MG/D5W 250 ML 8 MG/250 ML BAG 9.38 MG IV CONT (18:57)
[2022-08-23 20:22] LABS: Glucose Point of Care 197 mg/dl (65-105)
[2022-08-23] MEDS: PROPOFOL IV EMULSION 100 ML 15.16 MG IV CONT (21:45)
[2022-08-24] VITALS (71 sets, daily range): BP systolic 75–118; BP diastolic 56–85; PULSE 53–122; RESP 20–24; TEMP 36.1–36.5; O2SAT 88–97
[2022-08-24 00:09] LABS: Glucose Point of Care 217 mg/dl (65-105)
[2022-08-24] MEDS: INSULIN ASPART (*BKC) 100 UNITS/ML SUB-Q ×3 (00:10→20:21)
[2022-08-24] MEDS: ALBUTEROL SULFATE NEB 2.5 MG/3 ML INH INHALATION ×4 (02:40→20:25)
[2022-08-24] MEDS: IPRATROPIUM BR 0.02% INH SOLN 0.5 MG/2.5 ML VIAL INHALATION ×4 (02:41→20:25)
[2022-08-24] MEDS: PROPOFOL IV EMULSION 100 ML 15.16 MG IV CONT (03:30)
[2022-08-24 05:13] LABS: Alveolar/Arterial O2 Gradient 181.8 mmHg; Base Excess ABG 3.2 mEq/l (+/-2.0); Carboxyhemoglobin 0.4 % THb (0-2.0); Fractional Inspired Oxygen 40 %; HCO3 ABG 25.5 mEq/l (22.0-26.0); Methemoglobin ABG 0.4 %THb (0-1.5); Oxygen Content ABG 23.7 %vol (16.0-22.0); Oxygen Saturation ABG 94.6 % (95.0-100.0); Oxyhemoglobin 93.5 % THb (90.0-100.0); PCO2 ABG 33.1 mmHg (35.0-45.0); PO2 ABG 65.3 mmHg (80.0-100.0); PO2 FiO2 Ratio Arterial Blood 1.63 %; Reduced Hemoglobin 5.7 %THb (0-5.0); Total Hemoglobin 18.1 g/dL (12.0-18.0)
[2022-08-24] MEDS: CENTRAL LINE FLUSH 10 ML IV PUSH ×3 (05:14→20:21)
[2022-08-24 05:15] LABS: Glucose Point of Care 156 mg/dl (65-105)
[2022-08-24 05:15] LABS: Arterial Blood Gas Ventilator rate 24 /MIN; Device VENTILATOR; Modified Allen's Test Pass; Site Drawn RIGHT RADIAL; pH ABG 7.505 (7.350-7.450)
[2022-08-24 05:16] LABS: Arterial Blood Gas PEEP 7 cmH2O; Arterial Blood Gas Tidal Volume 450 ml; Arterial Blood Gas Vent Mode CMV
[2022-08-24 05:21] LABS: Basophils Percent Auto 0.2 % (0.2-1.2); Hematocrit 54.4 % (37.0-47.0); Hemoglobin 17.2 g/dL (12.0-15.0); Immature Granulocyte Absolute 0.07 K/mm3 (0.00-0.031); Immature Granulocyte Percent A 0.5 % (0-0.5); Lymphocytes Absolute Auto 1.25 K/mm3 (0.9-3.2); Lymphocytes Percent Auto 9.5 % (18.3-44.2); Mean Corpuscular HGB Conc 31.6 g/dl (32-36); Mean Corpuscular Hemoglobin 29.1 pg (26-34); Mean Corpuscular Volume 91.9 fl (80-100); Mean Platelet Volume 10.7 fl (7.4-10.4); Monocytes Absolute Auto 0.8 K/mm3 (0.1-0.6); Monocytes Percent Auto 6.2 % (2.6-8.5); Neutrophils Absolute Auto 11.1 K/mm3 (1.3-6.7); Neutrophils Percent Auto 83.6 % (45.5-73.1); Platelet Count Result 192 k/mm3 (150-375); Red Blood Count 5.92 M/mm3 (4.2-5.4); Red Cell Distribution Width 16.2 % (11.5-14.5); White Blood Count 13.2 K/mm3 (4.5-10.0)
[2022-08-24] MEDS: ASPIRIN 325 MG TABLET FEED TUBE (07:45)
[2022-08-24] MEDS: FUROSEMIDE INJ 40 MG/4 ML VIAL IV PUSH (07:45)
--- NOTE | 2022-08-24 08:10 | WPDINTPN ---
Progress Note: A&P Assessment and Plan (1) Acute respiratory failure: Code(s): J96.00 - Acute respiratory failure, unspecified whether with hypoxia or hypercapnia Status: Acute Assessment and Plan: Acute multifactorial Respiratory failure secondary to COPD exacerbation, CHF and possible community-acquired pneumonia patient now intubated and on mechanical ventilation chest x-ray reviewed and shows improvement in bilateral diffuse infiltrates ventilator settings and ABG reviewed - decrease tidal volume to 400 and rate to 20 Continue full mechanical ventilation support to prevent hypoxemia/hypercarbia and end organ damage. Lasix IV x 1 today will evaluate for weaning trial later today continue Low tidal volume ventilation strategy to prevent volutrauma (2) CHF (congestive heart failure), NYHA class I: Code(s): I50.9 - Heart failure, unspecified Status: Acute Assessment and Plan: patient has history of lower extremity edema and now presented with chest x-ray suggestive of pulmonary edema BNP 8770 will give another dose of IV Lasix today echocardiogram Summary ? 1. Technically suboptimal study due to poor sonographic images. ? 2. Definity contrast administered improved wall motion interpretation. ? 3. Left ventricular chamber dimension is normal. ? 4. Left ventricular systolic function is hyperdynamic, estimated at >70%. ? 5. The left ventricular diastolic function is indeterminate. ? 6. The tricuspid valve leaflets are not well visualized. ? 7. Severe pulmonary hypertension, estimated pulmonary arterial systolic pressure is 62 mmHg. (3) Chronic obstructive pulmonary disease with (acute) lower respiratory infection: Code(s): J44.0 - Chronic obstructive pulmonary disease with (acute) lower respiratory infection Status: Acute Assessment and Plan: patient has history of COPD. She has long history of heavy smoking. diffuse wheezing on exam continue IV Solu-Medrol continue q.6 hours bronchodilator continue empiric antibiotics as below (4) Community acquired pneumonia: Code(s): J18.9 - Pneumonia, unspecified organism Status: Acute Assessment and Plan: procalcitonin level was intermediate sputum and blood cultures are pending pending urine Legionella and pneumococcal antigen continue empiric Rocephin and doxycycline (5) Elevated serum creatinine: Code(s): R79.89 - Other specified abnormal findings of blood chemistry Status: Acute Assessment and Plan: patient presented with elevated creatinine of 1.3. baseline unknown normal CK level monitor urine output electrolytes and creatinine Lasix for pulmonary edema was given admission to be given again today renal ultrasound did not show any hydronephrosis creatinine has now normalized . monitor urine output electrolytes and creatinine (6) Hyperkalemia: Code(s): E87.5 - Hyperkalemia Status: Acute Assessment and Plan: presented with potassium of 5.3. Likely combination of acidosis, elevated creatinine and patient also on supplemental potassium at home now resolved (7) Altered mental status: Code(s): R41.82 - Altered mental status, unspecified Status: Acute Assessment and Plan: patient presented with confusion although the exam was nonfocal as per sign-out from ED provider now she sedated propofol normal head CT and ammonia level (8) Peripheral arterial disease: Code(s): I73.9 - Peripheral vascular disease, unspecified Status: Acute Assessment and Plan: on exam patient appears to have a PAD likely secondary to heavy and long history of smoking ABIs confirm Mildly decreased right WILD and moderately decreased left WILD, consistent with arterial occlusive disease. (9) Hyperglycemia: Code(s): R73.9 - Hyperglycemia, unspecified Status: Acute Assessment and Plan: increase sliding scale and [place]
[2022-08-24] MEDS: ENOXAPARIN 40 MG/0.4 ML SYRINGE SUB-Q (08:54)
[2022-08-24] MEDS: cefTRIAXone 2 GM in SODIUM CHLORIDE 0.9% IV 100 ML 200 ML IVPB (08:54)
[2022-08-24] MEDS: DOXYCYCLINE 100 MG/NS 100 ML 100 MG/100 ML BAG IVPB ×2 (08:54→20:18)
[2022-08-24] MEDS: MINERAL OIL/WHITE PETROLATUM OINTMENT 1 APPLIC EACH EYE ×2 (08:55→20:22)
[2022-08-24] MEDS: INSULIN GLARGINE (*BKC) 100 UNITS/ML 10 UNITS SUB-Q (08:55)
[2022-08-24] MEDS: PANTOPRAZOLE SODIUM IV 40 MG VIAL IV PUSH (08:55)
[2022-08-24] MEDS: methylPREDNISolone SOD SUCC 125 MG VIAL 60 MG IV PUSH (08:55)
[2022-08-24 09:26] LABS: Glucose Point of Care 158 mg/dl (65-105)
[2022-08-24] MEDS: dexmedeTOMIDine 400 MCG/100 ML 400 MCG/100 ML BAG IV CONT (10:41)
[2022-08-24] MEDS: PROPOFOL IV EMULSION 100 ML 12.63 MG IV CONT (10:43)
[2022-08-24 11:09] LABS: Alanine Aminotransferase 15 U/L (6-35); Albumin Level 3.8 g/dL (3.5-5.1); Alkaline Phosphatase 138 U/L (38-126); Anion Gap 5 mmol/L (8-16); Aspartate Amino Transferase 18 U/L (14-36); Bilirubin,Total 0.7 mg/dL (0.2-1.3); Blood Urea Nitrogen 26 mg/dL (7-17); Calcium 9.6 mg/dL (8.4-10.2); Carbon Dioxide 29 mmol/L (22-30); Chloride 98 mmol/L (98-107); Estimated CRCL calculation 82 ml/min; Estimated Glomerular Filt Rate > 60; Glucose 142 mg/dL (65-110); Magnesium 2.1 mg/dL (1.6-2.3); Potassium 3.8 mmol/L (3.4-5.0); Sodium 132 mmol/L (137-145)
--- NOTE | 2022-08-24 11:37 | PM.IMPN ---
Progress Note: A&P Assessment and Plan (1) Acute respiratory failure: Code(s): J96.00 - Acute respiratory failure, unspecified whether with hypoxia or hypercapnia Status: Acute Assessment and Plan: The patient is brought in for altered mental status. She has home O2 and wears this periodically. She continued to smoke 2ppd. ABG on admission 7.23/42/112 on 8L. She had trouble tolerating any assistance. Her condition worsened requiring intubation on 08/22. CXR showing congestive changes. She was admitted to ICU. She has acute respiratory failure secondary to COPD exacerbation, CHF, untreated STAN and/or CAP. She is on neb treatments, IV steroids, abx and intermittent Lasix. CXR reviewed and showing improvement. She remains intubated and sedated. Appreciate senior librarian input. (2) Shock: Code(s): R57.9 - Shock, unspecified Status: Acute Assessment and Plan: The patient's BP dropped once she was on sedation. She was started on Levophed and was titrated up to maintain stable BP. BP noted. Wean Levophed as blood pressure tolerates. (3) CHF (congestive heart failure), NYHA class I: Code(s): I50.9 - Heart failure, unspecified Status: Acute Assessment and Plan: CXR suggestive of pulmonary edema and BNP 8770. Echo with EF 70% and indeterminate diastolic function. She has severe pHTN. Lasix IV being given intermittently. Continue periodic Lasix dosing as tolerated (4) Chronic obstructive pulmonary disease with (acute) lower respiratory infection: Code(s): J44.0 - Chronic obstructive pulmonary disease with (acute) lower respiratory infection Status: Acute Assessment and Plan: She has a history of COPD from a long and continued hx of smoking. Continue IV Solu-Medrol and bronchodilator. Continue empiric antibiotics. (5) Community acquired pneumonia: Code(s): J18.9 - Pneumonia, unspecified organism Status: Acute Assessment and Plan: CXR as mentioned above. Procalcitonin level was intermediate. Sputum and blood cultures are NGTD. Urine Legionella and pneumococcal antigen are pending. Continue empiric Rocephin and doxycycline. Follow up culture results (6) Elevated serum creatinine: Code(s): R79.89 - Other specified abnormal findings of blood chemistry Status: Acute Assessment and Plan: Patient presented with elevated creatinine of 1.3. Baseline unknown. Normal CK level. Creatinine back down to normal. Suspect DAWOOD from ATN. Follow (7) Hyperkalemia: Code(s): E87.5 - Hyperkalemia Status: Acute Assessment and Plan: Patient presented with potassium of 5.3. Likely combination of acidosis, elevated creatinine and patient also on supplemental potassium at home. Resolved now (8) Altered mental status: Code(s): R41.82 - Altered mental status, unspecified Status: Acute Assessment and Plan: Patient presented with confusion although the exam was nonfocal as per sign-out from ED provider. Normal head CT and ammonia level. Now she is sedated propofol. monitor closely once off sedation (9) Peripheral arterial disease: Code(s): I73.9 - Peripheral vascular disease, unspecified Status: Acute Assessment and Plan: Patient with mild to moderate PAD noted by WILD's likely secondary to heavy and long history of smoking. Medical management planned. (10) Hyperglycemia: Code(s): R73.9 - Hyperglycemia, unspecified Status: Acute Assessment and Plan: No hx of DM. She is on steroids. Continue sliding scale and Lantus. (11) Polycythemia: Code(s): D75.1 - Secondary polycythemia Status: Acute Assessment and Plan: Hgb 19 on admission and has improved to 17.2. Suspect related to long standing hypoxia. She does have O2 at home but does not wear this often and she smokes 2ppd. Follow. Continue Lovenox Plan DVT prophylaxis - Lovenox Stress ulc
[2022-08-24 12:26] LABS: Glucose Point of Care 183 mg/dl (65-105)
[2022-08-24 16:54] LABS: Glucose Point of Care 230 mg/dl (65-105)
[2022-08-24] MEDS: FENTANYL 2,500MCG/NS250ML(*CRX 2,500 MCG/250 ML BAG IV CONT (20:18)
[2022-08-24 20:53] LABS: Glucose Point of Care 221 mg/dl (65-105)
[2022-08-24] MEDS: PROPOFOL IV EMULSION 100 ML 5.05 MG IV CONT (22:16)
[2022-08-24] MEDS: dexmedeTOMIDine 400 MCG/100 ML 400 MCG/100 ML BAG 10.86 MCG IV CONT (23:41)
[2022-08-25] VITALS (61 sets, daily range): BP systolic 74–127; BP diastolic 54–83; PULSE 56–120; RESP 20–37; TEMP 36.4–37.2; O2SAT 87–97
[2022-08-25] LABS: Glucose Point of Care 161 mg/dl (65-105)
[2022-08-25] MEDS: ALBUTEROL SULFATE NEB 2.5 MG/3 ML INH INHALATION ×4 (02:39→20:47)
[2022-08-25] MEDS: IPRATROPIUM BR 0.02% INH SOLN 0.5 MG/2.5 ML VIAL INHALATION ×4 (02:39→20:46)
[2022-08-25 03:49] LABS: Basophils Percent Auto 0.4 % (0.2-1.2); Hematocrit 56.4 % (37.0-47.0); Hemoglobin 17.6 g/dL (12.0-15.0); Immature Granulocyte Absolute 0.03 K/mm3 (0.00-0.031); Immature Granulocyte Percent A 0.4 % (0-0.5); Lymphocytes Absolute Auto 1.06 K/mm3 (0.9-3.2); Lymphocytes Percent Auto 13.9 % (18.3-44.2); Mean Corpuscular HGB Conc 31.2 g/dl (32-36); Mean Corpuscular Hemoglobin 28.9 pg (26-34); Mean Corpuscular Volume 92.6 fl (80-100); Mean Platelet Volume 11.1 fl (7.4-10.4); Monocytes Absolute Auto 0.6 K/mm3 (0.1-0.6); Monocytes Percent Auto 7.5 % (2.6-8.5); Neutrophils Absolute Auto 5.9 K/mm3 (1.3-6.7); Neutrophils Percent Auto 77.8 % (45.5-73.1); Platelet Count Result 182 k/mm3 (150-375); Red Blood Count 6.09 M/mm3 (4.2-5.4); Red Cell Distribution Width 17.8 % (11.5-14.5); White Blood Count 7.6 K/mm3 (4.5-10.0)
[2022-08-25 03:59] LABS: Triglycerides 203 mg/dL (<150)
[2022-08-25 04:01] LABS: Alanine Aminotransferase 16 U/L (6-35); Albumin Level 3.4 g/dL (3.5-5.1); Alkaline Phosphatase 122 U/L (38-126); Anion Gap 5 mmol/L (8-16); Aspartate Amino Transferase 18 U/L (14-36); Bilirubin,Total 0.6 mg/dL (0.2-1.3); Blood Urea Nitrogen 29 mg/dL (7-17); Carbon Dioxide 29 mmol/L (22-30); Chloride 101 mmol/L (98-107); Estimated CRCL calculation 82 ml/min; Estimated Glomerular Filt Rate > 60; Glucose 116 mg/dL (65-110); Magnesium 2.1 mg/dL (1.6-2.3); Potassium 4.5 mmol/L (3.4-5.0); Sodium 135 mmol/L (137-145)
[2022-08-25 05:29] LABS: Alveolar/Arterial O2 Gradient 149.4 mmHg; Base Excess ABG 3.9 mEq/l (+/-2.0); Carboxyhemoglobin 0.3 % THb (0-2.0); Device VENTILATOR; Fractional Inspired Oxygen 40 %; HCO3 ABG 30.1 mEq/l (22.0-26.0); Methemoglobin ABG 0.5 %THb (0-1.5); Modified Allen's Test Pass; Oxygen Content ABG 24.6 %vol (16.0-22.0); Oxygen Saturation ABG 95.4 % (95.0-100.0); Oxyhemoglobin 94.3 % THb (90.0-100.0); PO2 ABG 78.3 mmHg (80.0-100.0); PO2 FiO2 Ratio Arterial Blood 1.96 %; Reduced Hemoglobin 4.9 %THb (0-5.0); Site Drawn RIGHT RADIAL; Total Hemoglobin 18.6 g/dL (12.0-18.0); pH ABG 7.398 (7.350-7.450)
[2022-08-25 05:30] LABS: Arterial Blood Gas PEEP 5 cmH2O; Arterial Blood Gas Tidal Volume 400 ml; Arterial Blood Gas Vent Mode CMV; Arterial Blood Gas Ventilator rate 20 /MIN
[2022-08-25] MEDS: CENTRAL LINE FLUSH 10 ML IV PUSH ×3 (06:13→20:29)
[2022-08-25] MEDS: dexmedeTOMIDine 400 MCG/100 ML 400 MCG/100 ML BAG 15.21 MCG IV CONT ×3 (06:50→20:13)
[2022-08-25 07:30] LABS: Glucose Point of Care 144 mg/dl (65-105)
[2022-08-25] MEDS: DOXYCYCLINE 100 MG/NS 100 ML 100 MG/100 ML BAG IVPB ×2 (08:09→20:25)
[2022-08-25] MEDS: cefTRIAXone 2 GM in SODIUM CHLORIDE 0.9% IV 100 ML 200 ML IVPB (08:09)
[2022-08-25] MEDS: PANTOPRAZOLE SODIUM IV 40 MG VIAL IV PUSH (08:10)
[2022-08-25] MEDS: MINERAL OIL/WHITE PETROLATUM OINTMENT 1 APPLIC EACH EYE ×2 (08:10→20:31)
[2022-08-25] MEDS: ENOXAPARIN 40 MG/0.4 ML SYRINGE SUB-Q (08:10)
[2022-08-25] MEDS: methylPREDNISolone SOD SUCC 125 MG VIAL 60 MG IV PUSH (08:10)
[2022-08-25] MEDS: ASPIRIN 325 MG TABLET FEED TUBE (08:10)
[2022-08-25] MEDS: INSULIN GLARGINE (*BKC) 100 UNITS/ML 10 UNITS SUB-Q (08:11)
[2022-08-25] MEDS: FUROSEMIDE INJ 40 MG/4 ML VIAL IV PUSH (08:32)
--- NOTE | 2022-08-25 08:46 | WPDINTPN ---
Progress Note: A&P Assessment and Plan (1) Acute respiratory failure: Code(s): J96.00 - Acute respiratory failure, unspecified whether with hypoxia or hypercapnia Status: Acute Assessment and Plan: Acute multifactorial Respiratory failure secondary to COPD exacerbation, CHF and possible community-acquired pneumonia patient now intubated and on mechanical ventilation chest x-ray reviewed and shows improvement in bilateral diffuse infiltrates ventilator settings and ABG reviewed Continue full mechanical ventilation support to prevent hypoxemia/hypercarbia and end organ damage. Lasix IV x 1 again today 3/ patient failed a PSV weaning trial due to high RSBI and respiratory distress. I will try a weaning trial again today the patient is on Precedex continue Low tidal volume ventilation strategy to prevent volutrauma (2) CHF (congestive heart failure), NYHA class I: Code(s): I50.9 - Heart failure, unspecified Status: Acute Assessment and Plan: patient has history of lower extremity edema and now presented with chest x-ray suggestive of pulmonary edema BNP 8770 will give another dose of IV Lasix today echocardiogram Summary ? 1. Technically suboptimal study due to poor sonographic images. ? 2. Definity contrast administered improved wall motion interpretation. ? 3. Left ventricular chamber dimension is normal. ? 4. Left ventricular systolic function is hyperdynamic, estimated at >70%. ? 5. The left ventricular diastolic function is indeterminate. ? 6. The tricuspid valve leaflets are not well visualized. ? 7. Severe pulmonary hypertension, estimated pulmonary arterial systolic pressure is 62 mmHg. (3) Chronic obstructive pulmonary disease with (acute) lower respiratory infection: Code(s): J44.0 - Chronic obstructive pulmonary disease with (acute) lower respiratory infection Status: Acute Assessment and Plan: patient has history of COPD. She has long history of heavy smoking. diffuse wheezing on exam continue IV Solu-Medrol continue q.6 hours bronchodilator continue empiric antibiotics as below (4) Community acquired pneumonia: Code(s): J18.9 - Pneumonia, unspecified organism Status: Acute Assessment and Plan: procalcitonin level was intermediate sputum cultures growing Gram-positive cocci blood cultures are negative till now pending urine Legionella and pneumococcal antigen continue empiric Rocephin and doxycycline as patient has became afebrile and WBCs normal (5) Elevated serum creatinine: Code(s): R79.89 - Other specified abnormal findings of blood chemistry Status: Acute Assessment and Plan: patient presented with elevated creatinine of 1.3. baseline unknown normal CK level monitor urine output electrolytes and creatinine Lasix for pulmonary edema was given admission and to be given again today renal ultrasound did not show any hydronephrosis creatinine has now normalized . monitor urine output electrolytes and creatinine (6) Hyperkalemia: Code(s): E87.5 - Hyperkalemia Status: Acute Assessment and Plan: presented with potassium of 5.3. Likely combination of acidosis, elevated creatinine and patient also on supplemental potassium at home now resolved (7) Altered mental status: Code(s): R41.82 - Altered mental status, unspecified Status: Acute Assessment and Plan: patient presented with confusion although the exam was nonfocal as per sign-out from ED provider now she sedated propofol normal head CT and ammonia level (8) Peripheral arterial disease: Code(s): I73.9 - Peripheral vascular disease, unspecified Status: Acute Assessment and Plan: on exam patient appears to have a PAD likely secondary to heavy and long history of smoking ABIs confirm Mildly decreased right WILD and moderately decreased left WILD, consistent with arterial occlusive
--- NOTE | 2022-08-25 11:04 | PCFNICU ---
ICU Rounding Note: Pt current nutrition is Glucerna 1.2 at 50ml/hr. Last recorded weight is 84.3 kg Bowel Motility:+Bm reported 3/6 Labs Reviewed:Cr 0.6,Na 135, BUN 29 Meds Noted:Precedex, Propofol at 10 luee=865 kcals, Levophed, Solu Medrol, Lantus, Lasix Skin: WNL Additional Notes: Patient remains on mechanical vent and tube feedings of Glucerna 1.2 at 50 ml/hr. Tube feeding providing 1320 kcals/66 gms protein/886 ml water. Flush 30 ml q 4 hours. Failed breathing trial today. Following daily in ICU rounds and reassess every Thursday and Thursday.
--- NOTE | 2022-08-25 11:36 | PM.IMPN ---
Progress Note: A&P Assessment and Plan (1) Acute respiratory failure: Code(s): J96.00 - Acute respiratory failure, unspecified whether with hypoxia or hypercapnia Status: Acute Assessment and Plan: The patient is brought in for altered mental status. She has home O2 and wears this periodically. She continued to smoke 2ppd. ABG on admission 7.//112 on 8L. She had trouble tolerating any assistance. Her condition worsened requiring intubation on 08/22/22. CXR showing congestive changes. She was admitted to ICU. She has acute respiratory failure secondary to COPD exacerbation, CHF, untreated STAN and/or CAP. She is on neb treatments, IV steroids, abx and intermittent Lasix. CXR reviewed today showing improvement. She remains intubated and mildly sedated. Wean vent off as tolerated. Appreciate rocket propellant plant supervisor input. (2) Shock: Code(s): R57.9 - Shock, unspecified Status: Acute Assessment and Plan: The patient's BP dropped once she was on sedation. She was started on Levophed and was titrated up to maintain stable BP. Off levophed overnight but back on for drop in BP. BP noted. Wean Levophed as blood pressure tolerates. (3) CHF (congestive heart failure), NYHA class I: Code(s): I50.9 - Heart failure, unspecified Status: Acute Assessment and Plan: CXR suggestive of pulmonary edema and BNP 8770. Echo with EF 70% and indeterminate diastolic function. She has severe pHTN. Lasix IV being given intermittently. Continue periodic Lasix dosing as tolerated (4) Chronic obstructive pulmonary disease with (acute) lower respiratory infection: Code(s): J44.0 - Chronic obstructive pulmonary disease with (acute) lower respiratory infection Status: Acute Assessment and Plan: She has a history of COPD from a long and continued hx of smoking. Continue IV Solu-Medrol and bronchodilator. Continue empiric antibiotics. (5) Community acquired pneumonia: Code(s): J18.9 - Pneumonia, unspecified organism Status: Acute Assessment and Plan: CXR as mentioned above. Procalcitonin level was intermediate. Sputum and blood cultures are NGTD. Urine Legionella and pneumococcal antigen are pending. Continue empiric Rocephin and doxycycline. Follow up culture results (6) Elevated serum creatinine: Code(s): R79.89 - Other specified abnormal findings of blood chemistry Status: Acute Assessment and Plan: Patient presented with elevated creatinine of 1.3. Baseline unknown but suspect she has normal renal function. Normal CK level. Creatinine back down to normal. Suspect DAWOOD from [facility]. Follow (7) Hyperkalemia: Code(s): E87.5 - Hyperkalemia Status: Acute Assessment and Plan: Patient presented with potassium of 5.3. Likely combination of acidosis, elevated creatinine and patient also on supplemental potassium at home. Resolved now (8) Altered mental status: Code(s): R41.82 - Altered mental status, unspecified Status: Acute Assessment and Plan: Patient presented with confusion although the exam was nonfocal as per sign-out from ED provider. Normal head CT and ammonia level. Now she is sedated propofol. She is following commands. Monitor closely once off sedation. (9) Peripheral arterial disease: Code(s): I73.9 - Peripheral vascular disease, unspecified Status: Acute Assessment and Plan: Patient with mild to moderate PAD noted by WILD's likely secondary to heavy and long history of smoking. Medical management planned. (10) Hyperglycemia: Code(s): R73.9 - Hyperglycemia, unspecified Status: Acute Assessment and Plan: No hx of DM. She is on steroids. Continue sliding scale and Lantus. Check A1c (11) Polycythemia: Code(s): D75.1 - Secondary polycythemia Status: Acute Assessment and Plan: Hgb 19 on admission and has improved to 17. Suspect related to long st
[2022-08-25 12:21] LABS: Glucose Point of Care 192 mg/dl (65-105)
[2022-08-25] MEDS: PROPOFOL IV EMULSION 100 ML 5.05 MG IV CONT (13:07)
[2022-08-25 16:37] LABS: Glucose Point of Care 224 mg/dl (65-105)
[2022-08-25] MEDS: INSULIN ASPART (*BKC) 100 UNITS/ML SUB-Q (17:03)
[2022-08-25] MEDS: NOREPINEPHRINE 8 MG/D5W 250 ML 8 MG/250 ML BAG 5.63 MG IV CONT (20:26)
[2022-08-25 20:37] LABS: Glucose Point of Care 183 mg/dl (65-105)
[2022-08-25] MEDS: PROPOFOL IV EMULSION 100 ML 7.58 MG IV CONT (22:14)
[2022-08-26] VITALS (62 sets, daily range): BP systolic 81–137; BP diastolic 60–83; PULSE 57–89; RESP 16–23; TEMP 36.6–37.1; O2SAT 92–100
[2022-08-26 00:55] LABS: Glucose Point of Care 143 mg/dl (65-105)
[2022-08-26] MEDS: dexmedeTOMIDine 400 MCG/100 ML 400 MCG/100 ML BAG 15.21 MCG IV CONT ×2 (02:28→09:16)
[2022-08-26] MEDS: IPRATROPIUM BR 0.02% INH SOLN 0.5 MG/2.5 ML VIAL INHALATION ×4 (02:38→20:02)
[2022-08-26] MEDS: ALBUTEROL SULFATE NEB 2.5 MG/3 ML INH INHALATION ×4 (02:38→20:02)
[2022-08-26 04:44] LABS: Base Excess ABG 7.2 mEq/l (+/-2.0); Carboxyhemoglobin 0.3 % THb (0-2.0); Fractional Inspired Oxygen 40 %; Methemoglobin ABG 0.5 %THb (0-1.5); Oxygen Content ABG 23.8 %vol (16.0-22.0); Oxyhemoglobin 90.9 % THb (90.0-100.0); PCO2 ABG 49.1 mmHg (35.0-45.0); PO2 ABG 60.7 mmHg (80.0-100.0); PO2 FiO2 Ratio Arterial Blood 1.52 %; Reduced Hemoglobin 8.3 %THb (0-5.0); Total Hemoglobin 18.7 g/dL (12.0-18.0); pH ABG 7.445 (7.350-7.450)
[2022-08-26 04:45] LABS: Device VENTILATOR; Modified Allen's Test Pass; Site Drawn LEFT RADIAL
[2022-08-26 04:46] LABS: Arterial Blood Gas PEEP 5 cmH2O; Arterial Blood Gas Tidal Volume 400 ml; Arterial Blood Gas Vent Mode CMV; Arterial Blood Gas Ventilator rate 20 /MIN
[2022-08-26] MEDS: CENTRAL LINE FLUSH 10 ML IV PUSH ×3 (05:17→20:47)
[2022-08-26 05:31] LABS: Basophils Absolute Auto 0.1 K/mm3 (0.0-0.1); Basophils Percent Auto 0.5 % (0.2-1.2); Eosinophils Percent Auto 0.2 % (0-4.4); Hematocrit 55.4 % (37.0-47.0); Hemoglobin 17.6 g/dL (12.0-15.0); Immature Granulocyte Absolute 0.03 K/mm3 (0.00-0.031); Immature Granulocyte Percent A 0.3 % (0-0.5); Lymphocytes Percent Auto 18.4 % (18.3-44.2); Mean Corpuscular HGB Conc 31.8 g/dl (32-36); Mean Corpuscular Volume 91.4 fl (80-100); Mean Platelet Volume 10.6 fl (7.4-10.4); Monocytes Absolute Auto 0.9 K/mm3 (0.1-0.6); Monocytes Percent Auto 8.7 % (2.6-8.5); Neutrophils Percent Auto 71.9 % (45.5-73.1); Platelet Count Result 188 k/mm3 (150-375); Red Blood Count 6.06 M/mm3 (4.2-5.4); Red Cell Distribution Width 17.2 % (11.5-14.5); White Blood Count 9.8 K/mm3 (4.5-10.0)
[2022-08-26 05:57] LABS: Alanine Aminotransferase 34 U/L (6-35); Albumin Level 3.4 g/dL (3.5-5.1); Alkaline Phosphatase 139 U/L (38-126); Anion Gap 5 mmol/L (8-16); Aspartate Amino Transferase 41 U/L (14-36); Bilirubin,Total 0.5 mg/dL (0.2-1.3); Blood Urea Nitrogen 33 mg/dL (7-17); Calcium 8.6 mg/dL (8.4-10.2); Carbon Dioxide 33 mmol/L (22-30); Chloride 98 mmol/L (98-107); Estimated CRCL calculation 82 ml/min; Estimated Glomerular Filt Rate > 60; Glucose 142 mg/dL (65-110); Potassium 4.3 mmol/L (3.4-5.0); Sodium 136 mmol/L (137-145)
[2022-08-26 06:01] LABS: Hemoglobin A1C 6.1 % (<5.7)
[2022-08-26] MEDS: PROPOFOL IV EMULSION 100 ML 7.58 MG IV CONT (07:13)
[2022-08-26 07:43] LABS: Glucose Point of Care 169 mg/dl (65-105)
[2022-08-26] MEDS: ASPIRIN 325 MG TABLET FEED TUBE (07:43)
[2022-08-26] MEDS: cefTRIAXone 2 GM in SODIUM CHLORIDE 0.9% IV 100 ML 200 ML IVPB (08:04)
[2022-08-26] MEDS: ENOXAPARIN 40 MG/0.4 ML SYRINGE SUB-Q (08:04)
[2022-08-26] MEDS: PANTOPRAZOLE SODIUM IV 40 MG VIAL IV PUSH (08:05)
[2022-08-26] MEDS: MINERAL OIL/WHITE PETROLATUM OINTMENT 1 APPLIC EACH EYE ×2 (08:07→20:47)
[2022-08-26] MEDS: DOXYCYCLINE 100 MG/NS 100 ML 100 MG/100 ML BAG IVPB ×2 (08:10→20:47)
[2022-08-26] MEDS: INSULIN GLARGINE (*BKC) 100 UNITS/ML 10 UNITS SUB-Q (08:15)
[2022-08-26] MEDS: methylPREDNISolone SOD SUCC 125 MG VIAL 60 MG IV PUSH (09:08)
--- NOTE | 2022-08-26 10:26 | P.CDI_ITS ---
CDI Query Clarified Diagnosis Clarified Diagnosis: BNP elevated on 08/22/22 lab work. Documented history of CHF. CHF noted on the assessment and plan. Furosemide listed as a home medication. PT has received IV Lasix. Chest Xray from 08/22/22 noted pulmonary edema. Edema is noted in the documentation. Please specify type and acuity of heart failure if known. * Acute * Chronic * Acute on Chronic * Unknown * Systolic * Diastolic * Combined Systolic and Diastolic * Unknown
--- NOTE | 2022-08-26 11:36 | PCNFU ---
Nutrition Follow-Up Complete: Inadequate Oral Intake as related to mechanical ventilation as evidenced by NPO. goal: Meet estimated nutritional needs Patient is progressing towards goal. We will continue current goal. Pt current nutrition is Glucerna 1.2 at 50 ml/hr. Last recorded weight is 86.9 kg. Bowel Motility: +BM reported / Labs Reviewed:Glu 142, BUN 33, Cr 0.6,Alb 3.4 Meds Noted:Propofol 9 ndnt=879 kcals, Precedex, Lasix, Lantus, Solu Medrol Skin: WNL Additional Notes: Patient remains on mechanical vent and tube feedings of Glucerna 1.2 at 50 ml/hr and tolerating per nursing. Tube feedings providing 1320kcals/66 gms protein/886 ml water with additional 120 kcals from Propofol. Meeting 100% of caloric needs at 15 kcal/kg. Protein needs 100% of needs. Flush 30 ml q 4 hours. Agree with diet orders. Will continue to monitor propofol for any tube feedings rate changes. Will monitor in ICU rounds and reassess every Thursday and Thursday.
--- NOTE | 2022-08-26 11:52 | PCRCNOTE ---
RT and RN at bedside, pt was trialed on 03/[address] Reyes, VT was ranging between 150s to 180s and pt's RR increased to the 30's five mins into the trial. RT increased to 05/26 but VT still remained the same and SpO2 started to decrease to 88%. Dr. Reyes was informed of results of trial and pt failed spont trial for 08/26/2022.
[2022-08-26] MEDS: INSULIN ASPART (*BKC) 100 UNITS/ML SUB-Q (12:01)
[2022-08-26 13:49] LABS: Glucose Point of Care 244 mg/dl (65-105)
[2022-08-26] MEDS: dexmedeTOMIDine 400 MCG/100 ML 400 MCG/100 ML BAG 23.9 MCG IV CONT ×3 (14:21→22:41)
--- NOTE | 2022-08-26 14:39 | WPDINTPN ---
Progress Note: A&P Assessment and Plan (1) Acute respiratory failure: Code(s): J96.00 - Acute respiratory failure, unspecified whether with hypoxia or hypercapnia Status: Acute Assessment and Plan: Acute multifactorial Respiratory failure secondary to COPD exacerbation, CHF and possible community-acquired pneumonia patient now intubated and on mechanical ventilation chest x-ray reviewed and shows improvement in bilateral diffuse infiltrates ventilator settings and ABG reviewed Continue full mechanical ventilation support to prevent hypoxemia/hypercarbia and end organ damage. Suspect this is more AECOPD and less so CHF. Failed SBT today again, continue daily. Continue Low tidal volume ventilation strategy to prevent volutrauma. (2) CHF (congestive heart failure), NYHA class I: Code(s): I50.9 - Heart failure, unspecified Status: Acute Assessment and Plan: patient has history of lower extremity edema and now presented with chest x-ray suggestive of pulmonary edema BNP 8770 echocardiogram Summary ? 1. Technically suboptimal study due to poor sonographic images. ? 2. Definity contrast administered improved wall motion interpretation. ? 3. Left ventricular chamber dimension is normal. ? 4. Left ventricular systolic function is hyperdynamic, estimated at >70%. ? 5. The left ventricular diastolic function is indeterminate. ? 6. The tricuspid valve leaflets are not well visualized. ? 7. Severe pulmonary hypertension, estimated pulmonary arterial systolic pressure is 62 mmHg. (3) Chronic obstructive pulmonary disease with (acute) lower respiratory infection: Code(s): J44.0 - Chronic obstructive pulmonary disease with (acute) lower respiratory infection Status: Acute Assessment and Plan: patient has history of COPD. She has long history of heavy smoking. diffuse wheezing on exam continue IV Solu-Medrol continue q.6 hours bronchodilator continue empiric antibiotics as below (4) Community acquired pneumonia: Code(s): J18.9 - Pneumonia, unspecified organism Status: Acute Assessment and Plan: procalcitonin level was intermediate sputum cultures growing Gram-positive cocci blood cultures are negative till now pending urine Legionella and pneumococcal antigen continue empiric Rocephin and doxycycline as patient has became afebrile and WBCs normal (5) Elevated serum creatinine: Code(s): R79.89 - Other specified abnormal findings of blood chemistry Status: Acute Assessment and Plan: patient presented with elevated creatinine of 1.3. baseline unknown normal CK level monitor urine output electrolytes and creatinine renal ultrasound did not show any hydronephrosis creatinine has now normalized . (6) Hyperkalemia: Code(s): E87.5 - Hyperkalemia Status: Acute Assessment and Plan: presented with potassium of 5.3. Likely combination of acidosis, elevated creatinine and patient also on supplemental potassium at home now resolved (7) Altered mental status: Code(s): R41.82 - Altered mental status, unspecified Status: Acute Assessment and Plan: patient presented with confusion although the exam was nonfocal as per sign-out from ED provider now she sedated propofol normal head CT and ammonia level (8) Peripheral arterial disease: Code(s): I73.9 - Peripheral vascular disease, unspecified Status: Acute Assessment and Plan: on exam patient appears to have a PAD likely secondary to heavy and long history of smoking ABIs confirm Mildly decreased right WILD and moderately decreased left WILD, consistent with arterial occlusive disease. (9) Hyperglycemia: Code(s): R73.9 - Hyperglycemia, unspecified Status: Acute Assessment and Plan: continue sliding scale and Lantus (10) Shock: Code(s): R57.9 - Shock, unspecified Status: Acute Assessment an
[2022-08-26 16:24] LABS: Glucose Point of Care 195 mg/dl (65-105)
--- NOTE | 2022-08-26 16:24 | PC.NURSE ---
1600 this nurse at the bedside for assessment and repositioning of patient. Patient VSS, intubated and restrained. Left hand was unrestrained for repositioning. Patient was able to grab tubing and pull. Tube was out at 25 from 21 patient was choking. ETT and OG tube was further removed for airway management. patient was immediately bagged. RT was notified and physician. Upon arrival RT took over the ambu bag and physician reintubated with 7.5 ETT. See med list for sedation used. No complications were noted. Patient appeared to tolerate well. Xray confirmed placement. Patient resting at this time. will continue to monitor status
--- NOTE | 2022-08-26 16:34 | PM.IMPN ---
Progress Note: A&P Assessment and Plan (1) Acute respiratory failure: Code(s): J96.00 - Acute respiratory failure, unspecified whether with hypoxia or hypercapnia Status: Acute Assessment and Plan: The patient is brought in for altered mental status. She has home O2 and wears this periodically. She continues to smoke 2ppd. ABG on admission 7./112 on 8L. She was agitated and had trouble tolerating any assistance. Her condition worsened requiring intubation on 08/22/22. CXR showing congestive changes. She was admitted to ICU. She has acute respiratory failure secondary to COPD exacerbation, CHF exacerbation, untreated STAN and/or CAP. She is on neb treatments, IV steroids, abx and intermittent Lasix. CXR reviewed today showing new patchy left midlung airspace disease. She remains intubated and sedated. Wean vent off as tolerated. Appreciate sales representative door to door input. (2) Shock: Code(s): R57.9 - Shock, unspecified Status: Acute Assessment and Plan: The patient's BP dropped once she was on sedation. She was started on Levophed and was titrated up to maintain stable BP. Off levophed at one point but had to be re-instated. Wean Levophed as blood pressure tolerates. (3) CHF (congestive heart failure), NYHA class I: Code(s): I50.9 - Heart failure, unspecified Status: Acute Assessment and Plan: CXR suggestive of pulmonary edema and BNP 8770. Echo with EF 70% and indeterminate diastolic function. She has severe pHTN. Patient with acute on chronic diastolic CHF. Lasix IV being given intermittently. Continue periodic Lasix dosing as tolerated (4) Chronic obstructive pulmonary disease with (acute) lower respiratory infection: Code(s): J44.0 - Chronic obstructive pulmonary disease with (acute) lower respiratory infection Status: Acute Assessment and Plan: She has a history of COPD from a long and continued hx of smoking. Sputum negative. BCx NGTD. Continue IV Solu-Medrol and bronchodilator. Continue empiric antibiotics. (5) Community acquired pneumonia: Code(s): J18.9 - Pneumonia, unspecified organism Status: Acute Assessment and Plan: CXR as mentioned above. Procalcitonin level was intermediate. Sputum negative and blood cultures are NGTD. Urine Legionella and pneumococcal antigen are pending. Continue empiric Rocephin and doxycycline. Follow up culture results (6) Elevated serum creatinine: Code(s): R79.89 - Other specified abnormal findings of blood chemistry Status: Acute Assessment and Plan: Patient presented with elevated creatinine of 1.3. Baseline unknown but suspect she has normal renal function. Normal CK level. Creatinine back down to normal. Suspect DAWOOD from ATN. Follow (7) Hyperkalemia: Code(s): E87.5 - Hyperkalemia Status: Acute Assessment and Plan: Patient presented with potassium of 5.3. Likely combination of acidosis, elevated creatinine and patient also on supplemental potassium at home. Resolved now (8) Altered mental status: Code(s): R41.82 - Altered mental status, unspecified Status: Acute Assessment and Plan: Patient presented with confusion although the exam was nonfocal as per sign-out from ED provider. Normal head CT and ammonia level. Now she is sedated. Monitor closely once off sedation. (9) Peripheral arterial disease: Code(s): I73.9 - Peripheral vascular disease, unspecified Status: Acute Assessment and Plan: Patient with mild to moderate PAD noted by WILD's likely secondary to heavy and long history of smoking. Medical management planned. (10) Hyperglycemia: Code(s): R73.9 - Hyperglycemia, unspecified Status: Acute Assessment and Plan: A1c 6.1. No hx of DM. She is on steroids. Continue sliding scale and Lantus. (11) Polycythemia: Code(s): D75.1 - Secondary polycythemia Status: Acute Ass
--- NOTE | 2022-08-26 17:02 | WPDPROCEDUR ---
Procedures Intubation Intubation Date: 08/26/22 Intubation Time: 16:02 A pre-procedural Time-Out was completed immediately before starting the procedure and confirmed: Patient Identification, Site, Procedure, Patient Position and the Availability of Requisite Equipment: Yes Sedative: etomidate Mg given: 20 Paralytic: rocuronium Mg given: 40 Laryngoscope: fiber optic video scope Assist device used: fiber optic device ET tube size: 7.5 Tube secured depth (cm): 21 Tube secured location: lips Tube placement confirmation: visualized tube passing through cords Intubation complications: none
[2022-08-26 20:53] LABS: Glucose Point of Care 167 mg/dl (65-105)
[2022-08-27] VITALS (77 sets, daily range): BP systolic 77–126; BP diastolic 48–84; PULSE 63–94; RESP 20–32; TEMP 36.8–39.4; O2SAT 91–95
[2022-08-27] MEDS: IPRATROPIUM BR 0.02% INH SOLN 0.5 MG/2.5 ML VIAL INHALATION ×4 (02:15→19:54)
[2022-08-27] MEDS: ALBUTEROL SULFATE NEB 2.5 MG/3 ML INH INHALATION ×4 (02:15→19:54)
[2022-08-27] MEDS: FENTANYL 2,500MCG/NS250ML(*CRX 2,500 MCG/250 ML BAG IV CONT (02:53)
[2022-08-27 02:54] LABS: Glucose Point of Care 190 mg/dl (65-105)
[2022-08-27] MEDS: dexmedeTOMIDine 400 MCG/100 ML 400 MCG/100 ML BAG 30.42 MCG IV CONT (02:54)
[2022-08-27 05:14] LABS: Basophils Absolute Auto 0.1 K/mm3 (0.0-0.1); Basophils Percent Auto 0.5 % (0.2-1.2); Eosinophils Percent Auto 0.2 % (0-4.4); Hematocrit 54.9 % (37.0-47.0); Hemoglobin 17.1 g/dL (12.0-15.0); Immature Granulocyte Absolute 0.05 K/mm3 (0.00-0.031); Immature Granulocyte Percent A 0.5 % (0-0.5); Lymphocytes Absolute Auto 1.87 K/mm3 (0.9-3.2); Lymphocytes Percent Auto 17.1 % (18.3-44.2); Mean Corpuscular HGB Conc 31.1 g/dl (32-36); Mean Corpuscular Hemoglobin 29.1 pg (26-34); Mean Corpuscular Volume 93.4 fl (80-100); Mean Platelet Volume 10.2 fl (7.4-10.4); Monocytes Percent Auto 8.9 % (2.6-8.5); Neutrophils Percent Auto 72.8 % (45.5-73.1); Platelet Count Result 155 k/mm3 (150-375); Red Blood Count 5.88 M/mm3 (4.2-5.4); Red Cell Distribution Width 16.9 % (11.5-14.5); White Blood Count 10.9 K/mm3 (4.5-10.0)
[2022-08-27 05:26] LABS: Alanine Aminotransferase 57 U/L (6-35); Albumin Level 3.3 g/dL (3.5-5.1); Alkaline Phosphatase 122 U/L (38-126); Anion Gap -1 mmol/L (8-16); Aspartate Amino Transferase 52 U/L (14-36); Bilirubin,Total 0.5 mg/dL (0.2-1.3); Blood Urea Nitrogen 30 mg/dL (7-17); Calcium 8.7 mg/dL (8.4-10.2); Carbon Dioxide 34 mmol/L (22-30); Chloride 95 mmol/L (98-107); Estimated CRCL calculation 96 ml/min; Estimated Glomerular Filt Rate > 60; Glucose 141 mg/dL (65-110); Magnesium 2.2 mg/dL (1.6-2.3); Potassium 4.5 mmol/L (3.4-5.0); Sodium 128 mmol/L (137-145)
[2022-08-27 05:31] LABS: Triglycerides 179 mg/dL (<150)
[2022-08-27 05:57] LABS: Alveolar/Arterial O2 Gradient 167.2 mmHg; Base Excess ABG 5.6 mEq/l (+/-2.0); Carboxyhemoglobin 0.4 % THb (0-2.0); Fractional Inspired Oxygen 40 %; HCO3 ABG 30.8 mEq/l (22.0-26.0); Methemoglobin ABG 0.4 %THb (0-1.5); Oxygen Content ABG 23.5 %vol (16.0-22.0); Oxygen Saturation ABG 93.4 % (95.0-100.0); Oxyhemoglobin 92.2 % THb (90.0-100.0); PO2 ABG 65.1 mmHg (80.0-100.0); PO2 FiO2 Ratio Arterial Blood 1.63 %; Total Hemoglobin 18.2 g/dL (12.0-18.0); pH ABG 7.444 (7.350-7.450)
[2022-08-27 05:59] LABS: Arterial Blood Gas PEEP 5 cmH2O; Arterial Blood Gas Tidal Volume 400 ml; Arterial Blood Gas Vent Mode CMV; Arterial Blood Gas Ventilator rate 20 /MIN; Device VENTILATOR; Modified Allen's Test Unable to perform; Site Drawn LEFT RADIAL
[2022-08-27] MEDS: dexmedeTOMIDine 400 MCG/100 ML 400 MCG/100 ML BAG 28.24 MCG IV CONT ×2 (06:06→09:40)
[2022-08-27] MEDS: CENTRAL LINE FLUSH 10 ML IV PUSH ×3 (06:07→20:53)
--- NOTE | 2022-08-27 08:24 | WPDINTPN ---
Progress Note: A&P Assessment and Plan (1) Acute respiratory failure: Code(s): J96.00 - Acute respiratory failure, unspecified whether with hypoxia or hypercapnia Status: Acute (2) CHF (congestive heart failure), NYHA class I: Code(s): I50.9 - Heart failure, unspecified Status: Acute (3) Chronic obstructive pulmonary disease with (acute) lower respiratory infection: Code(s): J44.0 - Chronic obstructive pulmonary disease with (acute) lower respiratory infection Status: Acute (4) Community acquired pneumonia: Code(s): J18.9 - Pneumonia, unspecified organism Status: Acute (5) Elevated serum creatinine: Code(s): R79.89 - Other specified abnormal findings of blood chemistry Status: Acute (6) Hyperkalemia: Code(s): E87.5 - Hyperkalemia Status: Acute (7) Altered mental status: Code(s): R41.82 - Altered mental status, unspecified Status: Acute (8) Peripheral arterial disease: Code(s): I73.9 - Peripheral vascular disease, unspecified Status: Acute (9) Hyperglycemia: Code(s): R73.9 - Hyperglycemia, unspecified Status: Acute (10) Shock: Code(s): R57.9 - Shock, unspecified Status: Acute (11) Elevated troponin: Code(s): R77.8 - Other specified abnormalities of plasma proteins Status: Acute Plan Neuro: - Analgosedation: will use propofol and fentanyl as RASS is +2 on Precedex/fentanyl. CV: - Hypotension: suspect related to sedation - resumed low-dose Levophed. - NSTEMI: followed by Cardiology. Suspect demand ischemia - no WMA on echo. On ASA. - PAD: noted on WILD. No critical limb ischemia. Continue ASA. - HFpEF: will dose of of Lasix today to keep lungs on dry side to maximize chances of successful extubation. - Pulmonary HTN: WHO group 3 due to COPD. Consider inhaled vasodilator (e.g. epoprostenol) if unable to extubate. Pulm: - Acute on chronic hypoxemic respiratory failure: due primary to AECOPD. Pt self extubated 08/26 but was urgently reintubated. Hold off on SBT today, will consider tomorrow. Diurese today. Will d/w pt's possibility of trach if unable to extubate. - AECOPD: treat with steroids (dosing changed) and bronchodilators. GI: - On TF. Renal: - DAWOOD resolved. ID: - Possible acute bronchitis: completed doxycycline x5 days, will treat with ceftriaxone x7 days. Cultures negative. Heme/Onc: - Secondary polycythemia: due to longstanding smoking history. Endocrine: - DM II: on Lantus/SSI. MSK/Skin: - Local wound care. DVT ppx: Lovenox GI ppx: PPI Time Spent With Patient Time: Critical care time: 35 minutes. Subjective Date/time seen: 08/27/22 08:24 24h events: Pt self extubated yesterday afternoon, lasted a few minutes before she became blue and in distress. She was bagged and urgently reintubated. Review of Systems Review of Systems: ROS unobtainable: Yes unobtainable due to endotracheal tube Exam Narrative: General: Pt is intubated and on mechanical ventilation Lungs/Chest: diminished breath sounds bilaterally Cardiac: RRR. Normal S1 S2. No murmurs, tachycardic Abdomen: Normal bowel sounds. Obese. Soft. NT. ND. Extremities: no cyanosis or edema Neurologic: patient spontaneously moves all 4 extremities, follows commands with all 4 extremities Objective Data Vital Signs Vital Signs: Vital Signs - 24 hr 08/26/22 09:05 08/26/22 09:16 08/26/22 09:42 Temperature Pulse Rate 72 72 78 Respiratory Rate 20 Blood Pressure Pulse Oximetry Oxygen Delivery Fraction of Inspired Oxygen 08/26/22 09:43 08/26/22 09:45 08/26/22 10:07 Temperature 97.9 F Pulse Rate 77 72 89 Respiratory Rate 22 H 20 Blood Pressure 127/82 102/74 Pulse Oximetry 92 Oxygen Delivery Fraction of Inspired Oxygen 08/26/22 10:25 08/26/22 10:26 08/26/22 10:55 Temperature Pulse Rate 79 79 80 Respiratory Rate 20 20 22 H Blood Pressure
[2022-08-27] MEDS: INSULIN ASPART (*BKC) 100 UNITS/ML SUB-Q ×3 (08:35→20:49)
[2022-08-27] MEDS: INSULIN GLARGINE (*BKC) 100 UNITS/ML 10 UNITS SUB-Q (08:35)
[2022-08-27] MEDS: methylPREDNISolone SOD SUCC 125 MG VIAL 60 MG IV PUSH (08:35)
[2022-08-27] MEDS: cefTRIAXone 2 GM in SODIUM CHLORIDE 0.9% IV 100 ML 200 ML IVPB (08:36)
[2022-08-27] MEDS: PANTOPRAZOLE SODIUM IV 40 MG VIAL IV PUSH (08:36)
[2022-08-27] MEDS: ENOXAPARIN 40 MG/0.4 ML SYRINGE SUB-Q (08:36)
[2022-08-27] MEDS: ASPIRIN 325 MG TABLET FEED TUBE (08:36)
[2022-08-27] MEDS: MINERAL OIL/WHITE PETROLATUM OINTMENT 1 APPLIC EACH EYE ×2 (08:37→20:50)
[2022-08-27 09:19] LABS: Glucose Point of Care 209 mg/dl (65-105)
[2022-08-27] MEDS: FUROSEMIDE INJ 40 MG/4 ML VIAL IV PUSH (10:40)
[2022-08-27] MEDS: PROPOFOL IV EMULSION 100 ML 2.53 MG IV CONT (10:53)
--- NOTE | 2022-08-27 11:10 | PCFNICU ---
ICU Rounding Note: Pt current nutrition is Glucerna 1.2 at 50 ml/hr. Last recorded weight is 84.7 kg. Bowel Motility:+BM reported 08/27 Labs Reviewed:TG 179, Glu 141, BUN 30, Cr 0.5, Na 128, Alb 3.3,Hct 54.9,Hgb 17.1 Meds Noted:Levophed, Fentanyl, Precedex, Lasix, Solu Medrol Skin: WNL Additional Notes: Patient remains on mechanical vent. Self extubated on 08/26 and reintubated. Tube feedings of Glucerna 1.2 at 50 ml/hr and tolerating. Flush 30 ml q 4 hours. No breathing trial planned for today. Photo Colorer plans to discuss possible trach with family. Agree with diet orders. Will monitor in ICU rounds and reassess every Thursday and Thursday.
[2022-08-27 11:56] LABS: Glucose Point of Care 209 mg/dl (65-105)
[2022-08-27] MEDS: dexmedeTOMIDine 400 MCG/100 ML 400 MCG/100 ML BAG 26.07 MCG IV CONT (13:01)
[2022-08-27] MEDS: SODIUM CHLOR 3% 15 ML NEB (RESPIRATORY THERAPY) 6 ML INHALATION ×2 (13:26→20:55)
--- NOTE | 2022-08-27 15:50 | P.PNIM_ITS ---
Progress Note: A&P Assessment and Plan (1) Acute respiratory failure: Code(s): J96.00 - Acute respiratory failure, unspecified whether with hypoxia or hypercapnia Status: Acute Assessment and Plan: The patient is brought in for altered mental status. She has home O2 and wears this periodically. She continues to smoke 2ppd. ABG on admission 7.//112 on 8L. She was agitated and had trouble tolerating any assistance. Her condition worsened requiring intubation on 08/22/22. CXR showing congestive changes. She was admitted to ICU. She has acute respiratory failure secondary to COPD exacerbation, CHF exacer bation, untreated STAN and/or CAP. She is on neb treatments, IV steroids, abx and intermittent Lasix. Chest x-ray new patchy left midlung airspace disease. She remains intubated and sedated. Wean vent off as tolerated. Appreciate property claims manager input. (2) Shock: Code(s): R57.9 - Shock, unspecified Status: Acute Assessment and Plan: The patient's BP dropped once she was on sedation. She was started on Levophed and was titrated up to maintain stable BP. Off levophed at one point but had to be re-instated. Wean Levophed as blood pressure tolerates. (3) CHF (congestive heart failure), NYHA class I: Code(s): I50.9 - Heart failure, unspecified Status: Acute Assessment and Plan: CXR suggestive of pulmonary edema and BNP 8770. Echo with EF 70% and indeterminate diastolic function. She has severe pHTN. Patient with acute on chronic diastolic CHF. Lasix IV being given intermittently. Continue periodic Lasix dosing as tolerated (4) Chronic obstructive pulmonary disease with (acute) lower respiratory infection: Code(s): J44.0 - Chronic obstructive pulmonary disease with (acute) lower respiratory infection Status: Acute Assessment and Plan: She has a history of COPD from a long and continued hx of smoking. Sputum negative. BCx NGTD. Continue IV Solu-Medrol and bronchodilator. Continue empiric antibiotics. (5) Community acquired pneumonia: Code(s): J18.9 - Pneumonia, unspecified organism Status: Acute Assessment and Plan: CXR as mentioned above. Procalcitonin level was intermediate. Sputum negative and blood cultures are NGTD. Urine Legionella and pneumococcal antigen are pending. Continue empiric Rocephin and doxycycline. Follow up culture results (6) Elevated serum creatinine: Code(s): R79.89 - Other specified abnormal findings of blood chemistry Status: Acute Assessment and Plan: Patient presented with elevated creatinine of 1.3. Baseline unknown but suspect she has normal renal function. Normal CK level. Creatinine back down to normal. Suspect DAWOOD from ATN. Follow (7) Hyperkalemia: Code(s): E87.5 - Hyperkalemia Status: Acute Assessment and Plan: Patient presented with potassium of 5.3. Likely combination of acidosis, elevated creatinine and patient also on supplemental potassium at home. Resolved now (8) Altered mental status: Code(s): R41.82 - Altered mental status, unspecified Status: Acute Assessment and Plan: Patient presented with confusion although the exam was nonfocal as per sign-out from ED provider. Normal head CT and ammonia level. Now she is sedated. Monitor closely once off sedation. (9) Peripheral arterial disease: Code(s): I73.9 - Peripheral vascular disease, unspecified Status: Acute Assessment and Plan: Patient with mild to moderate PAD noted by WILD's likely secondary to heavy
[2022-08-27 15:53] LABS: Glucose Point of Care 202 mg/dl (65-105)
[2022-08-27 16:02] LABS: Glucose Point of Care 198 mg/dl (65-105)
[2022-08-27] MEDS: dexmedeTOMIDine 400 MCG/100 ML 400 MCG/100 ML BAG 13.04 MCG IV CONT (18:56)
[2022-08-27] MEDS: PROPOFOL IV EMULSION 100 ML 7.58 MG IV CONT (18:57)
[2022-08-27 20:43] LABS: Glucose Point of Care 208 mg/dl (65-105)
[2022-08-27] MEDS: methylPREDNISolone SOD SUCC 40 MG VIAL IV PUSH (20:52)
[2022-08-27 23:45] LABS: Glucose Point of Care 149 mg/dl (65-105)
[2022-08-28] VITALS (53 sets, daily range): BP systolic 77–113; BP diastolic 53–89; PULSE 50–100; RESP 20–21; TEMP 36.5–38.9; O2SAT 90–98
[2022-08-28] MEDS: IPRATROPIUM BR 0.02% INH SOLN 0.5 MG/2.5 ML VIAL INHALATION ×4 (01:17→19:43)
[2022-08-28] MEDS: ALBUTEROL SULFATE NEB 2.5 MG/3 ML INH INHALATION ×4 (01:17→19:42)
[2022-08-28 03:42] LABS: Glucose Point of Care 222 mg/dl (65-105)
[2022-08-28] MEDS: INSULIN ASPART (*BKC) 100 UNITS/ML SUB-Q ×5 (03:46→23:42)
[2022-08-28 05:30] LABS: Alveolar/Arterial O2 Gradient 158.2 mmHg; Carboxyhemoglobin 0.5 % THb (0-2.0); Fractional Inspired Oxygen 40 %; HCO3 ABG 31.3 mEq/l (22.0-26.0); Methemoglobin ABG 0.5 %THb (0-1.5); Oxygen Content ABG 24.4 %vol (16.0-22.0); Oxygen Saturation ABG 96.3 % (95.0-100.0); Oxyhemoglobin 94.8 % THb (90.0-100.0); PCO2 ABG 42.4 mmHg (35.0-45.0); PO2 ABG 78.2 mmHg (80.0-100.0); PO2 FiO2 Ratio Arterial Blood 1.95 %; Reduced Hemoglobin 4.2 %THb (0-5.0); Total Hemoglobin 18.3 g/dL (12.0-18.0); pH ABG 7.486 (7.350-7.450)
[2022-08-28 05:31] LABS: Arterial Blood Gas PEEP 5 cmH2O; Arterial Blood Gas Tidal Volume 400 ml; Arterial Blood Gas Vent Mode CMV; Arterial Blood Gas Ventilator rate 20 /MIN; Device VENTILATOR; Modified Allen's Test Pass; Site Drawn LEFT RADIAL
[2022-08-28] MEDS: CENTRAL LINE FLUSH 10 ML IV PUSH ×3 (05:32→20:09)
[2022-08-28 05:33] LABS: Basophils Absolute Auto 0.1 K/mm3 (0.0-0.1); Basophils Percent Auto 0.4 % (0.2-1.2); Hematocrit 54.7 % (37.0-47.0); Hemoglobin 17.4 g/dL (12.0-15.0); Immature Granulocyte Absolute 0.09 K/mm3 (0.00-0.031); Immature Granulocyte Percent A 0.6 % (0-0.5); Lymphocytes Absolute Auto 2.06 K/mm3 (0.9-3.2); Lymphocytes Percent Auto 14.2 % (18.3-44.2); Mean Corpuscular HGB Conc 31.8 g/dl (32-36); Mean Corpuscular Hemoglobin 28.8 pg (26-34); Mean Corpuscular Volume 90.6 fl (80-100); Mean Platelet Volume 10.5 fl (7.4-10.4); Monocytes Absolute Auto 1.4 K/mm3 (0.1-0.6); Monocytes Percent Auto 9.4 % (2.6-8.5); Neutrophils Percent Auto 75.4 % (45.5-73.1); Platelet Count Result 208 k/mm3 (150-375); Red Blood Count 6.04 M/mm3 (4.2-5.4); Red Cell Distribution Width 15.9 % (11.5-14.5); White Blood Count 14.5 K/mm3 (4.5-10.0)
[2022-08-28] MEDS: PROPOFOL IV EMULSION 100 ML 12.63 MG IV CONT (05:40)
[2022-08-28 06:19] LABS: Alanine Aminotransferase 80 U/L (6-35); Albumin Level 3.3 g/dL (3.5-5.1); Alkaline Phosphatase 132 U/L (38-126); Anion Gap 3 mmol/L (8-16); Aspartate Amino Transferase 51 U/L (14-36); Bilirubin,Total 0.6 mg/dL (0.2-1.3); Blood Urea Nitrogen 30 mg/dL (7-17); Calcium 8.2 mg/dL (8.4-10.2); Carbon Dioxide 34 mmol/L (22-30); Chloride 95 mmol/L (98-107); Estimated CRCL calculation 80 ml/min; Estimated Glomerular Filt Rate > 60; Glucose 155 mg/dL (65-110); Magnesium 2.3 mg/dL (1.6-2.3); Phosphorus 3.9 mg/dL (2.5-4.5); Potassium 4.2 mmol/L (3.4-5.0); Sodium 132 mmol/L (137-145)
[2022-08-28] MEDS: FENTANYL 2,500MCG/NS250ML(*CRX 2,500 MCG/250 ML BAG 12.5 MCG IV CONT (06:28)
[2022-08-28 08:10] LABS: Glucose Point of Care 190 mg/dl (65-105)
[2022-08-28] MEDS: PANTOPRAZOLE SODIUM IV 40 MG VIAL IV PUSH (08:23)
[2022-08-28] MEDS: ASPIRIN 325 MG TABLET FEED TUBE (08:23)
[2022-08-28] MEDS: methylPREDNISolone SOD SUCC 40 MG VIAL IV PUSH ×2 (08:23→20:08)
[2022-08-28] MEDS: ENOXAPARIN 40 MG/0.4 ML SYRINGE SUB-Q (08:23)
[2022-08-28] MEDS: MINERAL OIL/WHITE PETROLATUM OINTMENT 1 APPLIC EACH EYE ×2 (08:24→20:08)
[2022-08-28] MEDS: cefTRIAXone 2 GM in SODIUM CHLORIDE 0.9% IV 100 ML 200 ML IVPB (08:29)
[2022-08-28] MEDS: INSULIN GLARGINE (*BKC) 100 UNITS/ML 10 UNITS SUB-Q (08:30)
[2022-08-28] MEDS: SODIUM CHLOR 3% 15 ML NEB (RESPIRATORY THERAPY) 6 ML INHALATION ×2 (08:37→19:48)
--- NOTE | 2022-08-28 08:45 | WPDINTPN ---
Progress Note: A&P Assessment and Plan (1) Acute respiratory failure: Code(s): J96.00 - Acute respiratory failure, unspecified whether with hypoxia or hypercapnia Status: Acute (2) CHF (congestive heart failure), NYHA class I: Code(s): I50.9 - Heart failure, unspecified Status: Acute (3) Chronic obstructive pulmonary disease with (acute) lower respiratory infection: Code(s): J44.0 - Chronic obstructive pulmonary disease with (acute) lower respiratory infection Status: Acute (4) Community acquired pneumonia: Code(s): J18.9 - Pneumonia, unspecified organism Status: Acute (5) Elevated serum creatinine: Code(s): R79.89 - Other specified abnormal findings of blood chemistry Status: Acute (6) Hyperkalemia: Code(s): E87.5 - Hyperkalemia Status: Acute (7) Altered mental status: Code(s): R41.82 - Altered mental status, unspecified Status: Acute (8) Peripheral arterial disease: Code(s): I73.9 - Peripheral vascular disease, unspecified Status: Acute (9) Hyperglycemia: Code(s): R73.9 - Hyperglycemia, unspecified Status: Acute (10) Shock: Code(s): R57.9 - Shock, unspecified Status: Acute (11) Elevated troponin: Code(s): R77.8 - Other specified abnormalities of plasma proteins Status: Acute Plan Neuro: - Analgosedation: will use propofol and fentanyl as RASS was +2 on Precedex/fentanyl. Also ?Precedex-related fevers. CV: - Hypotension: suspect related to sedation - resumed low-dose Levophed. - NSTEMI: followed by Cardiology. Suspect demand ischemia - no WMA on echo. On ASA. - PAD: noted on WILD. No critical limb ischemia. Continue ASA. - HFpEF: will dose of of Lasix today to keep lungs on dry side to maximize chances of successful extubation. - Pulmonary HTN: WHO group 3 due to COPD. Consider inhaled vasodilator (e.g. epoprostenol) if unable to extubate, though FiO2 remains stable. Pulm: - Acute on chronic hypoxemic respiratory failure: due primary to AECOPD. Pt self-extubated 08/26 but was urgently reintubated. Hold off on SBT today, will consider tomorrow. Diurese today. D/w pt's possibility of trach if unable to extubate - he will talk it over with the rest of the family. - AECOPD: treat with steroids (dosing changed 08/27) and bronchodilators. GI: - On TF. Renal: - DAWOOD resolved. ID: - Possible acute bronchitis: completed doxycycline x5 days and ceftriaxone x7 days. Cultures negative. Fevers on 08/27 but no new infectious source identified. Consider cultures/empiric abx if fevers recur. ?if fevers were related to Precedex. Heme/Onc: - Secondary polycythemia: due to longstanding smoking history. Endocrine: - DM II: on Lantus/SSI. MSK/Skin: - Local wound care. DVT ppx: Lovenox GI ppx: PPI Time Spent With Patient Time: Critical care time: 32 minutes. Subjective Date/time seen: 08/28/22 08:45 Pt remains on mechanical ventilation. No acute events noted overnight. Review of Systems Review of Systems: ROS unobtainable: Yes unobtainable due to endotracheal tube Exam Narrative: General: Pt is intubated and on mechanical ventilation Lungs/Chest: diminished breath sounds bilaterally Cardiac: RRR. Normal S1 S2. No murmurs, tachycardic Abdomen: Normal bowel sounds. Obese. Soft. NT. ND. Extremities: no cyanosis or edema Neurologic: patient spontaneously moves all 4 extremities, follows commands with all 4 extremities Objective Data Vital Signs Vital Signs: Vital Signs - 24 hr 08/27/22 09:00 08/27/22 08:52 08/27/22 09:40 Temperature Pulse Rate 87 82 84 Respiratory Rate 32 H 29 H 26 H Blood Pressure Pulse Oximetry Oxygen Delivery Fraction of Inspired Oxygen 08/27/22 09:40 08/27/22 09:47 08/27/22 09:35 Temperature 100.1 F H Pulse Rate 84 84 Respiratory Rate 26 H 27 H Blood Pressure Pulse Oximetry Oxygen Delivery Fraction of In
[2022-08-28] MEDS: NOREPINEPHRINE 8 MG/D5W 250 ML 8 MG/250 ML BAG 9.38 MG IV CONT (09:25)
[2022-08-28] MEDS: PROPOFOL IV EMULSION 100 ML 20.21 MG IV CONT ×2 (10:50→19:54)
[2022-08-28] MEDS: FUROSEMIDE INJ 40 MG/4 ML VIAL IV PUSH (11:23)
--- NOTE | 2022-08-28 11:48 | PCFNICU ---
ICU Rounding Note: Pt current nutrition is NPO, tube feeding: Glucerna 1.2 @ 50ml/hr. Nutrition recommendation: Continue with current plan of care. Last recorded weight is 83.1 kg. Bowel Motility:+BM 08/27 Labs Reviewed: Hgb:17.4, HCT:54.7, Alb:3.3, NA:132, BUN:30, Cr:0.6, Glu: 190 Meds Noted: solumedrol, novolog, lantus, lasix, propofol 40mcgs = 533kcals Skin: WNL Additional Notes: Pt remains on mechanical ventilation. Propofol started for sedation, 533kcals. Possible trach placement but no plans to proceed today. Will need to reduce tube feedings to 30ml/hr to provide 792kcals, due to high calories from propofol. 1325kcals total per day. Informed nursing. Following daily in ICU rounds. Will monitor in ICU rounds and reassess every Thursday and Thursday..
[2022-08-28 12:02] LABS: Glucose Point of Care 250 mg/dl (65-105)
[2022-08-28] MEDS: PROPOFOL IV EMULSION 100 ML 22.73 MG IV CONT (15:26)
[2022-08-28 18:17] LABS: Glucose Point of Care 206 mg/dl (65-105)
[2022-08-28 20:12] LABS: Glucose Point of Care 207 mg/dl (65-105)
[2022-08-28 23:39] LABS: Glucose Point of Care 205 mg/dl (65-105)
[2022-08-29] VITALS (73 sets, daily range): BP systolic 65–116; BP diastolic 42–95; PULSE 69–117; RESP 11–27; TEMP 36.6–37; O2SAT 83–97
[2022-08-29] MEDS: FENTANYL 2,500MCG/NS250ML(*CRX 2,500 MCG/250 ML BAG 12.5 MCG IV CONT (00:55)
[2022-08-29] MEDS: PROPOFOL IV EMULSION 100 ML 20.21 MG IV CONT (00:57)
[2022-08-29] MEDS: IPRATROPIUM BR 0.02% INH SOLN 0.5 MG/2.5 ML VIAL INHALATION ×4 (02:02→20:03)
[2022-08-29] MEDS: ALBUTEROL SULFATE NEB 2.5 MG/3 ML INH INHALATION ×4 (02:02→20:03)
[2022-08-29] MEDS: NOREPINEPHRINE 8 MG/D5W 250 ML 8 MG/250 ML BAG 16.88 MG IV CONT (03:47)
[2022-08-29 03:58] LABS: Glucose Point of Care 199 mg/dl (65-105)
[2022-08-29] MEDS: PROPOFOL IV EMULSION 100 ML 22.73 MG IV CONT (05:06)
[2022-08-29] MEDS: CENTRAL LINE FLUSH 10 ML IV PUSH ×3 (05:14→20:16)
[2022-08-29 05:46] LABS: Alveolar/Arterial O2 Gradient 159.6 mmHg; Base Excess ABG 10.3 mEq/l (+/-2.0); Carboxyhemoglobin 0.3 % THb (0-2.0); Fractional Inspired Oxygen 40 %; HCO3 ABG 36.8 mEq/l (22.0-26.0); Methemoglobin ABG 0.6 %THb (0-1.5); Oxygen Content ABG 25.4 %vol (16.0-22.0); Oxygen Saturation ABG 93.4 % (95.0-100.0); Oxyhemoglobin 92.1 % THb (90.0-100.0); PCO2 ABG 52.8 mmHg (35.0-45.0); PO2 ABG 64.9 mmHg (80.0-100.0); PO2 FiO2 Ratio Arterial Blood 1.62 %; Total Hemoglobin 19.7 g/dL (12.0-18.0); pH ABG 7.461 (7.350-7.450)
[2022-08-29 05:48] LABS: Arterial Blood Gas PEEP 5 cmH2O; Arterial Blood Gas Vent Mode CMV; Arterial Blood Gas Ventilator rate 20 /MIN; Device VENTILATOR; Modified Allen's Test Pass; Site Drawn LEFT RADIAL
[2022-08-29 05:49] LABS: Arterial Blood Gas Tidal Volume 400 ml
[2022-08-29 06:36] LABS: Basophils Percent Auto 0.2 % (0.2-1.2); Eosinophils Percent Auto 0.1 % (0-4.4); Hemoglobin 18.2 g/dL (12.0-15.0); Immature Granulocyte Absolute 0.08 K/mm3 (0.00-0.031); Immature Granulocyte Percent A 0.6 % (0-0.5); Lymphocytes Absolute Auto 1.67 K/mm3 (0.9-3.2); Lymphocytes Percent Auto 12.7 % (18.3-44.2); Mean Corpuscular HGB Conc 31.4 g/dl (32-36); Mean Corpuscular Hemoglobin 29.3 pg (26-34); Mean Corpuscular Volume 93.4 fl (80-100); Mean Platelet Volume 10.6 fl (7.4-10.4); Monocytes Absolute Auto 1.4 K/mm3 (0.1-0.6); Monocytes Percent Auto 10.7 % (2.6-8.5); Neutrophils Absolute Auto 9.9 K/mm3 (1.3-6.7); Neutrophils Percent Auto 75.7 % (45.5-73.1); Platelet Count Result 235 k/mm3 (150-375); Red Blood Count 6.21 M/mm3 (4.2-5.4); Red Cell Distribution Width 17.1 % (11.5-14.5); White Blood Count 13.1 K/mm3 (4.5-10.0)
[2022-08-29] MEDS: INSULIN GLARGINE (*BKC) 100 UNITS/ML 10 UNITS SUB-Q (08:37)
[2022-08-29] MEDS: methylPREDNISolone SOD SUCC 40 MG VIAL IV PUSH ×2 (08:39→20:16)
[2022-08-29] MEDS: PANTOPRAZOLE SODIUM IV 40 MG VIAL IV PUSH (08:39)
[2022-08-29] MEDS: MINERAL OIL/WHITE PETROLATUM OINTMENT 1 APPLIC EACH EYE (08:39)
[2022-08-29 08:55] LABS: Glucose Point of Care 187 mg/dl (65-105)
--- NOTE | 2022-08-29 09:02 | WPDINTPN ---
Progress Note: A&P Assessment and Plan (1) Acute respiratory failure: Code(s): J96.00 - Acute respiratory failure, unspecified whether with hypoxia or hypercapnia Status: Acute (2) CHF (congestive heart failure), NYHA class I: Code(s): I50.9 - Heart failure, unspecified Status: Acute (3) Chronic obstructive pulmonary disease with (acute) lower respiratory infection: Code(s): J44.0 - Chronic obstructive pulmonary disease with (acute) lower respiratory infection Status: Acute (4) Community acquired pneumonia: Code(s): J18.9 - Pneumonia, unspecified organism Status: Acute (5) Elevated serum creatinine: Code(s): R79.89 - Other specified abnormal findings of blood chemistry Status: Acute (6) Hyperkalemia: Code(s): E87.5 - Hyperkalemia Status: Acute (7) Altered mental status: Code(s): R41.82 - Altered mental status, unspecified Status: Acute (8) Peripheral arterial disease: Code(s): I73.9 - Peripheral vascular disease, unspecified Status: Acute (9) Hyperglycemia: Code(s): R73.9 - Hyperglycemia, unspecified Status: Acute (10) Shock: Code(s): R57.9 - Shock, unspecified Status: Acute (11) Elevated troponin: Code(s): R77.8 - Other specified abnormalities of plasma proteins Status: Acute Plan Neuro: - Analgosedation: currently on propofol and fentanyl. There was question of Precedex-related fever but will consider Precedex again short-term if needed during SAT. CV: - Hypotension: suspect related to sedation - resumed low-dose Levophed. - NSTEMI: followed by Cardiology. Suspect demand ischemia - no WMA on echo. On ASA. - PAD: noted on WILD. No critical limb ischemia. Continue ASA. - HFpEF: hold off on further Lasix for now - lung appear dry on CXR and labs suggestive of contraction alkalosis. - Pulmonary HTN: WHO group 3 due to COPD. Consider inhaled vasodilator (e.g. epoprostenol) if unable to extubate, though FiO2 remains stable. Pulm: - Acute on chronic hypoxemic respiratory failure: due primary to AECOPD. Pt self-extubated 08/26 but was urgently reintubated. Suspect her lungs now are as optimized as can be expected given her degree of emphysema - will perform SAT/SBT today and extubate to BiPAP if passes. D/w pt's possibility of trach if unable to extubate - he will talk it over with the rest of the family. - AECOPD: treat with steroids (dosing changed 08/27) and bronchodilators. GI: - On TF. Renal: - DAWOOD resolved. ID: - Possible acute bronchitis: completed doxycycline x5 days and ceftriaxone x7 days. Cultures negative. Fevers on 08/27 but no new infectious source identified. Consider cultures/empiric abx if fevers recur. ?if fevers were related to Precedex. Heme/Onc: - Secondary polycythemia: due to longstanding smoking history. Endocrine: - DM II: on Lantus/SSI. MSK/Skin: - Local wound care. DVT ppx: Lovenox GI ppx: PPI Time Spent With Patient Time: Critical care time: 40 minutes. Subjective Date/time seen: 08/29/22 09:02 24h summary: Remains on mechanical ventilation and Levophed. No acute events noted overnight. Review of Systems Review of Systems: ROS unobtainable: Yes unobtainable due to endotracheal tube Exam Narrative: General: Pt is intubated and on mechanical ventilation Lungs/Chest: diminished breath sounds bilaterally Cardiac: RRR. Normal S1 S2. No murmurs, tachycardic Abdomen: Normal bowel sounds. Obese. Soft. NT. ND. Extremities: no cyanosis or edema Neurologic: patient spontaneously moves all 4 extremities, follows commands with all 4 extremities Objective Data Vital Signs Vital Signs: Vital Signs - 24 hr 08/28/22 09:25 08/28/22 09:57 08/28/22 10:50 Temperature Pulse Rate 100 79 87 Respiratory Rate 20 20 Blood Pressure 77/69 L 84/56 L Pulse Oximetry 91 Oxygen Delivery Fraction of Inspired Oxygen 08/28/22 10:15
--- NOTE | 2022-08-29 09:14 | PM.IMPN ---
Progress Note: A&P Assessment and Plan (1) Acute respiratory failure: Code(s): J96.00 - Acute respiratory failure, unspecified whether with hypoxia or hypercapnia Status: Acute Assessment and Plan: The patient is brought in for altered mental status. She has home O2 and wears this periodically. She continues to smoke 2ppd. ABG on admission 7./112 on 8L. She was agitated and had trouble tolerating any assistance. Her condition worsened requiring intubation on 08/22/22. CXR showing congestive changes. She was admitted to ICU. She has acute respiratory failure secondary to COPD exacerbation, CHF exacerbation, untreated STAN and/or CAP. She is on neb treatments, IV steroids, abx and intermittent Lasix. Chest x-ray new patchy left midlung airspace disease. She remains intubated and sedated. Wean vent off as tolerated. on SBT trial today Appreciate instructor apparel manufacture input. (2) Shock: Code(s): R57.9 - Shock, unspecified Status: Acute Assessment and Plan: The patient's BP dropped once she was on sedation. She was started on Levophed and was titrated up to maintain stable BP. Off levophed at one point but had to be re-instated. Wean Levophed as blood pressure tolerates. (3) CHF (congestive heart failure), NYHA class I: Code(s): I50.9 - Heart failure, unspecified Status: Acute Assessment and Plan: CXR suggestive of pulmonary edema and BNP 8770. Echo with EF 70% and indeterminate diastolic function. She has severe pHTN. Patient with acute on chronic diastolic CHF. Lasix IV being given intermittently. Continue periodic Lasix dosing as tolerated (4) Chronic obstructive pulmonary disease with (acute) lower respiratory infection: Code(s): J44.0 - Chronic obstructive pulmonary disease with (acute) lower respiratory infection Status: Acute Assessment and Plan: She has a history of COPD from a long and continued hx of smoking. Sputum negative. BCx NGTD. Continue IV Solu-Medrol and bronchodilator. Continue empiric antibiotics. (5) Community acquired pneumonia: Code(s): J18.9 - Pneumonia, unspecified organism Status: Acute Assessment and Plan: CXR as mentioned above. Procalcitonin level was intermediate. Sputum negative and blood cultures are NGTD. Urine Legionella and pneumococcal antigen are pending. Continue empiric Rocephin and doxycycline. Follow up culture results (6) Elevated serum creatinine: Code(s): R79.89 - Other specified abnormal findings of blood chemistry Status: Acute Assessment and Plan: Patient presented with elevated creatinine of 1.3. Baseline unknown but suspect she has normal renal function. Normal CK level. Creatinine back down to normal. Suspect DAWOOD from ATN. Follow (7) Hyperkalemia: Code(s): E87.5 - Hyperkalemia Status: Acute Assessment and Plan: Patient presented with potassium of 5.3. Likely combination of acidosis, elevated creatinine and patient also on supplemental potassium at home. Resolved now (8) Altered mental status: Code(s): R41.82 - Altered mental status, unspecified Status: Acute Assessment and Plan: Patient presented with confusion although the exam was nonfocal as per sign-out from ED provider. Normal head CT and ammonia level. Now she is sedated. Monitor closely once off sedation. (9) Peripheral arterial disease: Code(s): I73.9 - Peripheral vascular disease, unspecified Status: Acute Assessment and Plan: Patient with mild to moderate PAD noted by WILD's likely secondary to heavy and long history of smoking. Medical management planned. (10) Hyperglycemia: Code(s): R73.9 - Hyperglycemia, unspecified Status: Acute Assessment and Plan: A1c 6.1. No hx of DM. She is on steroids. Continue sliding scale and Lantus. (11) Polycythemia: Code(s): D75.1 - Secondary polycythemia Status: Acute
[2022-08-29] MEDS: ENOXAPARIN 40 MG/0.4 ML SYRINGE SUB-Q (11:19)
[2022-08-29] MEDS: ASPIRIN 325 MG TABLET FEED TUBE (11:19)
[2022-08-29] MEDS: dexmedeTOMIDine 400 MCG/100 ML 400 MCG/100 ML BAG IV CONT (11:32)
[2022-08-29 11:35] LABS: Anion Gap 2 mmol/L (8-16); Blood Urea Nitrogen 26 mg/dL (7-17); Calcium 9.2 mg/dL (8.4-10.2); Carbon Dioxide 39 mmol/L (22-30); Chloride 92 mmol/L (98-107); Estimated CRCL calculation 97 ml/min; Estimated Glomerular Filt Rate > 60; Glucose 140 mg/dL (65-110); Magnesium 2.2 mg/dL (1.6-2.3); Phosphorus 4.3 mg/dL (2.5-4.5); Potassium 4.8 mmol/L (3.4-5.0); Sodium 133 mmol/L (137-145); Triglycerides 154 mg/dL (<150)
--- NOTE | 2022-08-29 11:50 | PCNFU ---
Nutrition Follow-Up Complete: Inadequate Oral Intake as related to mechanical ventilation as evidenced by NPO. Goal: Meet estimated nutritional needs Patient is progressing towards goal. We will continue current goal. Pt current nutrition is Glucerna 1.2 at 30 ml/hr. Nutrition recommendation: If patient is not extubated recommend increasing feeding to 50 ml/hr. Last recorded weight is 87.7 kg. Bowel Motility: +Bm reported 08/27 Labs Reviewed:Hct 58.0,Hgb 18.2 Meds Noted:Propofol 25 zzw=422 kcals,,Lovenox, Aspirin,Solu Medrol,NovoLog, Lantus Skin: WNL Additional Notes: Patient remains on mechanical vent and tube feedings of Glucerna 1.2 at 30 ml/hr. Propofol has decreased from 40 mcgs to 25 mcgs. Plans for breathing trial today, then extubated. If tube feedings continue recommend Glucerna 1.2 at 50 ml/hr. Tube feeding providing 1320 kcals/66 gms protein/886 ml water. Flush 30 ml q 4 hours. Agree with diet orders. Will monitor in ICU rounds and reassess every Thursday and Thursday.
[2022-08-29 12:21] LABS: Glucose Point of Care 190 mg/dl (65-105)
[2022-08-29 14:11] LABS: Alveolar/Arterial O2 Gradient 157.2 mmHg; Base Excess ABG 9.6 mEq/l (+/-2.0); Fractional Inspired Oxygen 40 %; HCO3 ABG 37.2 mEq/l (22.0-26.0); Methemoglobin ABG 0.6 %THb (0-1.5); Oxygen Content ABG 25.6 %vol (16.0-22.0); Oxygen Saturation ABG 91.7 % (95.0-100.0); Oxyhemoglobin 90.9 % THb (90.0-100.0); PCO2 ABG 57.7 mmHg (35.0-45.0); PO2 ABG 61.6 mmHg (80.0-100.0); PO2 FiO2 Ratio Arterial Blood 1.54 %; Reduced Hemoglobin 8.5 %THb (0-5.0); Total Hemoglobin 20.1 g/dL (12.0-18.0); pH ABG 7.427 (7.350-7.450)
[2022-08-29 14:15] LABS: Device VENTILATOR; Modified Allen's Test Pass; Site Drawn LEFT RADIAL
[2022-08-29 14:16] LABS: Arterial Blood Gas PEEP 5 cmH2O
[2022-08-29 14:17] LABS: Arterial Blood Gas Pressure Support 5 cmH2O; Arterial Blood Gas Vent Mode SPONTANEOUS
[2022-08-29 16:51] LABS: Glucose Point of Care 192 mg/dl (65-105)
[2022-08-29 16:51] LABS: Glucose Point of Care 180 mg/dl (65-105)
[2022-08-29 20:21] LABS: Glucose Point of Care 119 mg/dl (65-105)
[2022-08-29 23:43] LABS: Glucose Point of Care 138 mg/dl (65-105)
[2022-08-30] VITALS (29 sets, daily range): BP systolic 88–140; BP diastolic 40–99; PULSE 97–117; RESP 15–27; TEMP 36.6–36.8; O2SAT 87–98
[2022-08-30] MEDS: ALBUTEROL SULFATE NEB 2.5 MG/3 ML INH INHALATION ×3 (02:23→14:47)
[2022-08-30] MEDS: IPRATROPIUM BR 0.02% INH SOLN 0.5 MG/2.5 ML VIAL INHALATION ×3 (02:23→14:47)
[2022-08-30 04:13] LABS: Glucose Point of Care 131 mg/dl (65-105)
[2022-08-30] MEDS: NOREPINEPHRINE 8 MG/D5W 250 ML 8 MG/250 ML BAG 3.75 MG IV CONT (04:54)
[2022-08-30] MEDS: CENTRAL LINE FLUSH 10 ML IV PUSH ×2 (05:16→14:28)
[2022-08-30 05:19] LABS: Basophils Percent Auto 0.2 % (0.2-1.2); Hematocrit 57.1 % (37.0-47.0); Hemoglobin 17.8 g/dL (12.0-15.0); Immature Granulocyte Absolute 0.05 K/mm3 (0.00-0.031); Immature Granulocyte Percent A 0.6 % (0-0.5); Lymphocytes Absolute Auto 1.27 K/mm3 (0.9-3.2); Lymphocytes Percent Auto 14.3 % (18.3-44.2); Mean Corpuscular HGB Conc 31.2 g/dl (32-36); Mean Corpuscular Hemoglobin 29.3 pg (26-34); Mean Corpuscular Volume 94.1 fl (80-100); Mean Platelet Volume 10.9 fl (7.4-10.4); Monocytes Absolute Auto 0.8 K/mm3 (0.1-0.6); Monocytes Percent Auto 8.7 % (2.6-8.5); Neutrophils Absolute Auto 6.8 K/mm3 (1.3-6.7); Neutrophils Percent Auto 76.2 % (45.5-73.1); Platelet Count Result 207 k/mm3 (150-375); Red Blood Count 6.07 M/mm3 (4.2-5.4); Red Cell Distribution Width 16.5 % (11.5-14.5); White Blood Count 8.9 K/mm3 (4.5-10.0)
[2022-08-30 05:38] LABS: Anion Gap 1 mmol/L (8-16); Blood Urea Nitrogen 23 mg/dL (7-17); Calcium 9.2 mg/dL (8.4-10.2); Carbon Dioxide 38 mmol/L (22-30); Chloride 94 mmol/L (98-107); Estimated CRCL calculation 97 ml/min; Estimated Glomerular Filt Rate > 60; Glucose 121 mg/dL (65-110); Magnesium 2.2 mg/dL (1.6-2.3); Phosphorus 3.8 mg/dL (2.5-4.5); Potassium 4.2 mmol/L (3.4-5.0); Sodium 133 mmol/L (137-145)
[2022-08-30] MEDS: PANTOPRAZOLE SODIUM IV 40 MG VIAL IV PUSH (08:17)
[2022-08-30] MEDS: ENOXAPARIN 40 MG/0.4 ML SYRINGE SUB-Q (08:17)
[2022-08-30] MEDS: methylPREDNISolone SOD SUCC 40 MG VIAL IV PUSH (08:22)
[2022-08-30 08:27] LABS: Glucose Point of Care 99 mg/dl (65-105)
--- NOTE | 2022-08-30 11:51 | WPDINTPN ---
Progress Note: A&P Assessment and Plan (1) Acute respiratory failure: Code(s): J96.00 - Acute respiratory failure, unspecified whether with hypoxia or hypercapnia Status: Acute (2) CHF (congestive heart failure), NYHA class I: Code(s): I50.9 - Heart failure, unspecified Status: Acute (3) Chronic obstructive pulmonary disease with (acute) lower respiratory infection: Code(s): J44.0 - Chronic obstructive pulmonary disease with (acute) lower respiratory infection Status: Acute (4) Community acquired pneumonia: Code(s): J18.9 - Pneumonia, unspecified organism Status: Acute (5) Elevated serum creatinine: Code(s): R79.89 - Other specified abnormal findings of blood chemistry Status: Acute (6) Hyperkalemia: Code(s): E87.5 - Hyperkalemia Status: Acute (7) Altered mental status: Code(s): R41.82 - Altered mental status, unspecified Status: Acute (8) Peripheral arterial disease: Code(s): I73.9 - Peripheral vascular disease, unspecified Status: Acute (9) Hyperglycemia: Code(s): R73.9 - Hyperglycemia, unspecified Status: Acute (10) Shock: Code(s): R57.9 - Shock, unspecified Status: Acute (11) Elevated troponin: Code(s): R77.8 - Other specified abnormalities of plasma proteins Status: Acute Plan Acute on chronic hypoxemic respiratory failure: due primary to AECOPD. Pt self-extubated 3 but was urgently reintubated. Suspect her lungs now are as optimized as can be expected given her degree of emphysema. She was extubated yesterday after a successful weaning trial. She continues to require oxygen and has increased work of breathing. She refused to wear BiPAP and she does not want to be reintubated. She has finished a course of antibiotics and she is on bronchodilators. Her Levophed was weaned off this morning. I had extensive discussion with the patient this morning and again discussed her status. Patient is adamant that she would like to go home and what like to spend time with her family. She states she feels fine and does not feel any different and states that she has oxygen at home. She is aware that she has COPD from smoking and heart failure. I explained to her that she is not ready to be discharged. She states that she will leave against medical advice if she has to as she does not want to stay in the hospital anymore. She states she has oxygen at home and her medications and she will be fine. She kept on repeating that she is much stronger than what I think about her. Ii explained to her that she is critically ill and does need noninvasive positive pressure ventilation and may need re-intubation if her respiratory status deteriorates. She clarify that she does not want any resuscitation or intubation in the event of respiratory failure or cardiac arrest. She verbalized understanding that she may without mechanical ventilation if needed and states that she still does not want to be reintubated. She states she is okay with trying CPAP but he does not want to stay in the hospital anymore. Her arrived and I had long discussion with her in front of patient and her also agreed that if patient does not want to stay in the hospital, he would support her decision and take her home with him even if that means that she will at home while being with her pets and her family. They both verbalized understanding of risk of leaving against medical advice but maintain that they would like to go home today at whatever cost. After discussion with nursing staff patient stated that she want to consider option of hospice where she can get healthcare support at home and still be able to go home today. I tried to explain hospice care to the patient and explained that hospice is for end of life care with goal of management focused towards comfort and pain control rather than improving her respir
[2022-08-30 11:54] LABS: Glucose Point of Care 115 mg/dl (65-105)
--- NOTE | 2022-08-30 14:40 | PCSTNOTE ---
Patient seen for bedside swallowing evaluation in ICU. Patient sitting upright at EOB. Trials of thin liquid by spoon, cup, and straw were given. Patient showed signs of possible aspiration with thin liquids, including coughing and watery eyes. Trials of pureed and solid consistencies were given and patient's swallowing appears to be within normal limits with those consistencies. Recommendations: 1. Modified barium swallow study. 2. Pureed food with moderately thickened liquids (level 3). 3. Swallowing precaution recommendations placed in chart. Thank you for the referral of this patient.
--- NOTE | 2022-08-30 15:37 | PM.IMPN ---
Progress Note: A&P Assessment and Plan (1) Acute respiratory failure: Code(s): J96.00 - Acute respiratory failure, unspecified whether with hypoxia or hypercapnia Status: Acute Assessment and Plan: The patient is brought in for altered mental status. She has home O2 and wears this periodically. She continues to smoke 2ppd. ABG on admission 7./112 on 8L. She was agitated and had trouble tolerating any assistance. Her condition worsened requiring intubation on 08/22/22. CXR showing congestive changes. She was admitted to ICU. She has acute respiratory failure secondary to COPD exacerbation, CHF exacerbation, untreated STAN and/or CAP. She is on neb treatments, IV steroids, abx and intermittent Lasix. Chest x-ray new patchy left midlung airspace disease. Extubated 08/29/2022 BiPAP p.r.n. on 810 L oxygen via nasal cannula Wants to be home with hospice Does not want to be reintubated chooses to be DNR Hospice has been consulted Necessary arrangements if enrolled in hospice (2) Shock: Code(s): R57.9 - Shock, unspecified Status: Acute Assessment and Plan: The patient's BP dropped once she was on sedation. She was started on Levophed and was titrated up to maintain stable BP. Off levophed at one point but had to be re-instated. Wean Levophed as blood pressure tolerates. (3) CHF (congestive heart failure), NYHA class I: Code(s): I50.9 - Heart failure, unspecified Status: Acute Assessment and Plan: CXR suggestive of pulmonary edema and BNP 8770. Echo with EF 70% and indeterminate diastolic function. She has severe pHTN. Patient with acute on chronic diastolic CHF. Lasix IV being given intermittently. Continue periodic Lasix dosing as tolerated (4) Chronic obstructive pulmonary disease with (acute) lower respiratory infection: Code(s): J44.0 - Chronic obstructive pulmonary disease with (acute) lower respiratory infection Status: Acute Assessment and Plan: She has a history of COPD from a long and continued hx of smoking. Sputum negative. BCx NGTD. Continue IV Solu-Medrol and bronchodilator. Continue empiric antibiotics. (5) Community acquired pneumonia: Code(s): J18.9 - Pneumonia, unspecified organism Status: Acute Assessment and Plan: CXR as mentioned above. Procalcitonin level was intermediate. Sputum negative and blood cultures are NGTD. Urine Legionella and pneumococcal antigen are pending. Continue empiric Rocephin and doxycycline. Follow up culture results (6) Elevated serum creatinine: Code(s): R79.89 - Other specified abnormal findings of blood chemistry Status: Acute Assessment and Plan: Patient presented with elevated creatinine of 1.3. Baseline unknown but suspect she has normal renal function. Normal CK level. Creatinine back down to normal. Suspect DAWOOD from ATN. Follow (7) Hyperkalemia: Code(s): E87.5 - Hyperkalemia Status: Acute Assessment and Plan: Patient presented with potassium of 5.3. Likely combination of acidosis, elevated creatinine and patient also on supplemental potassium at home. Resolved now (8) Altered mental status: Code(s): R41.82 - Altered mental status, unspecified Status: Acute Assessment and Plan: Patient presented with confusion although the exam was nonfocal as per sign-out from ED provider. Normal head CT and ammonia level. (9) Peripheral arterial disease: Code(s): I73.9 - Peripheral vascular disease, unspecified Status: Acute Assessment and Plan: Patient with mild to moderate PAD noted by WILD's likely secondary to heavy and long history of smoking. Medical management planned. (10) Hyperglycemia: Code(s): R73.9 - Hyperglycemia, unspecified Status: Acute Assessment and Plan: A1c 6.1. No hx of DM. She is on steroids. Continue sliding scale and Lantus. (11) Polycythemia: Code(s
[2022-08-30 16:45] LABS: Glucose Point of Care 111 mg/dl (65-105)
--- NOTE | 2022-08-30 16:54 | PM.DS ---
DS: Admitting Diagnosis Discharge Date 08/30/2022 Admitting Diagnosis shortness of breath DS: Discharge Diagnosis Discharge Diagnosis (1) Acute respiratory failure: Code(s): J96.00 - Acute respiratory failure, unspecified whether with hypoxia or hypercapnia Status: Acute (2) Shock: Code(s): R57.9 - Shock, unspecified Status: Acute (3) CHF (congestive heart failure), NYHA class I: Code(s): I50.9 - Heart failure, unspecified Status: Acute (4) Chronic obstructive pulmonary disease with (acute) lower respiratory infection: Code(s): J44.0 - Chronic obstructive pulmonary disease with (acute) lower respiratory infection Status: Acute (5) Community acquired pneumonia: Code(s): J18.9 - Pneumonia, unspecified organism Status: Acute (6) Elevated serum creatinine: Code(s): R79.89 - Other specified abnormal findings of blood chemistry Status: Acute (7) Hyperkalemia: Code(s): E87.5 - Hyperkalemia Status: Acute (8) Altered mental status: Code(s): R41.82 - Altered mental status, unspecified Status: Acute (9) Peripheral arterial disease: Code(s): I73.9 - Peripheral vascular disease, unspecified Status: Acute (10) Hyperglycemia: Code(s): R73.9 - Hyperglycemia, unspecified Status: Acute (11) Polycythemia: Code(s): D75.1 - Secondary polycythemia Status: Acute (12) Elevated troponin: Code(s): R77.8 - Other specified abnormalities of plasma proteins Status: Acute DS: Summary Hospital Course Hospital Course: # Acute hypoxic respiratory failure: The patient is brought in for altered mental status. She has home O2 and wears this periodically. She continues to smoke 2ppd. ABG on admission 7./112 on 8L. She was agitated and had trouble tolerating any assistance. Her condition worsened requiring intubation on 08/22/22. CXR showing congestive changes. She was admitted to ICU. She has acute respiratory failure secondary to COPD exacerbation, CHF exacerbation, untreated STAN and/or CAP. She is on neb treatments, IV steroids, abx and intermittent Lasix.? Chest x-ray? new patchy left midlung airspace disease. Extubated 08/29/2022 ?BiPAP p.r.n. on 8-10 L oxygen via nasal cannula Wants to be home with hospice Does not want to be reintubated chooses to be DNR Hospice has been consulted and enrolled. Plans for discharge to hospice care # hypotension: The patient's BP dropped once she was on sedation. She was started on Levophed and was titrated up to maintain stable BP. Off levophed at one point but had to be re-instated. Wean Levophed as blood pressure tolerates. # congestive heart failure acute on chronic diastolic: CXR suggestive of pulmonary edema and BNP 8770. Echo with EF 70% and indeterminate diastolic function. She has severe pHTN.?Patient with acute on chronic diastolic CHF.?Lasix IV being given intermittently. Continue periodic Lasix dosing as tolerated Oral Lasix at discharge # COPD with acute lower respiratory infection: She has a history of COPD from a long and continued hx of smoking. Sputum negative. BCx NGTD. Continue IV Solu-Medrol and bronchodilator. Continue empiric antibiotics. She completed treatment with antibiotics during the hospital stay. # community-acquired pneumonia: CXR as mentioned above. Procalcitonin level was intermediate. Sputum negative and blood cultures are NGTD. Urine Legionella and pneumococcal antigen are pending. Continue empiric Rocephin and doxycycline. Follow up culture results # DAWOOD: Mild. Patient presented with elevated creatinine of 1.3. Baseline unknown but suspect she has normal renal function. Normal CK level. Creatinine back down to normal. Suspect DAWOOD from ATN. Follow # hyperkalemia: Patient presented with potassium of 5.3.? Likely combination of acidosis, elevated creatinine and patient also on supplemental potassium at home. Resolved now # al
== END 2022-08-30 18:38 | disposition hospice, home (50) | DRG 291 ==
LOC: ANHED 09:39 → ANHICU 14:23
PROVIDERS: Internal Medicine; Internal Medicine Critical Care Medicine; Nurse Practitioner; Admitting Provider Hospitalist; Emergency Provider Physician Assistant; PCP Family Medicine; Visit Provider Internal Medicine
DX: I11.0 Hypertensive heart disease with heart failure (principal); I50.33 Acute on chronic diastolic (congestive) heart failure; J18.9 Pneumonia, unspecified organism; J96.21 Acute and chronic respiratory failure with hypoxia; J44.1 Chronic obstructive pulmonary disease with (acute) exacerbation; N17.9 Acute kidney failure, unspecified; J44.0 Chronic obstructive pulmonary disease with (acute) lower respiratory infection; R57.9 Shock, unspecified; D75.1 Secondary polycythemia; E87.5 Hyperkalemia; R41.82 Altered mental status, unspecified; R73.9 Hyperglycemia, unspecified; I73.9 Peripheral vascular disease, unspecified; G47.33 Obstructive sleep apnea (adult) (pediatric); R45.1 Restlessness and agitation; Z20.822 Contact with and (suspected) exposure to COVID-19; Z88.1 Allergy status to other antibiotic agents
CPT/HCPCS: 31500; 36415; 36569; 36600; 70450; 71045; 76775; 80048; 80053; 81001; 82140; 82375; 82550; 82570; 82805; 82948; 83036; 83050; 83605; 83735; 83880; 83935; 84100; 84133; 84145; 84300; 84439; 84443; 84478; 84480; 84484; 85025; 87040; 87070; 87205; 87636; 92610; 93005; 93922; 94002; 94003; 94640; 96361; 96365; 96367; 96375; 97163; 99291; A9270; C1751; C8929; C9113; J0131; J0696; J1650; J1815; J1940; J2060; J2250; J2704; J2920; J2930; J3010; J7030

== ENCOUNTER 2023-11-04 13:23 | Outpatient (CLI) | payer MEDICARE, SELFPAY ==
--- NOTE | 2023-11-04 16:49 | WPDSIXMINUTE ---
Six Minute Walk Procedure Procedure Performed Pulmonary Stress Test (6 min walk) Six Minute Walk Six Minute Walk: This is a 6 minute walk test. The test was performed and interpreted in accordance with the 2014 ERS/ATS task force guidelines. Of note, a wheeled walker was used during this testing. Findings: The patient's resting room air oxygen saturation measured by pulse oximetry was 96% and heart rate was 103 bpm. Patient ambulated for 244 meters and oxygen saturation remained 92 to 93%. Heart rate at the end of the study was 123 bpm. The patient did not qualify for supplemental oxygen at rest or with ambulation. There are no prior studies for comparison.
== END 2023-11-04 13:24 | disposition home or self-care (01) ==
LOC: ANHPFT 13:23
PROVIDERS: PCP Family Medicine; Visit Provider Family Medicine
DX: J44.9 Chronic obstructive pulmonary disease, unspecified (principal)
CPT/HCPCS: 94618

== ENCOUNTER 2024-10-14 13:06 | Inpatient (IN) | payer MEDICARE, MEDICAID, SELFPAY ==
[2024-10-14] VITALS (38 sets, daily range): BP systolic 117–142; BP diastolic 51–99; PULSE 90–113; RESP 16–27; TEMP 36.3–36.8; O2SAT 70–100; BMI 28.3
--- NOTE | ~2024-10-14 | XR_ITS ---
EXAMINATION: XR chest 1V portable DATE: 10/14/2024 14:52 INDICATION: COPD presenting with shortness of breath TECHNIQUE: frontal view of the chest was obtained. COMPARISON: Chest radiograph dated 08/29/2022 FINDINGS: Slight improvement in the upper lungs of the previously seen diffuse increased interstitial pattern. Small right pleural effusion with blunting at the cardiophrenic and costophrenic angles. No pneumotho rax. Cardiomegaly. IMPRESSION: 1. Likely congestive heart failure with cardiomegaly, mild pulmonary edema with lower lung predominan ce and small right pleural effusion. Reviewed, dictated and finalized at location A. IMPRESSION: 1. Likely congestive heart failure with cardiomegaly, mild pulmonary edema with lower lung predominance and small right pleural effusion.
--- NOTE | ~2024-10-14 | XR_ITS ---
EXAMINATION: XR chest 2V DATE: 10/16/2024 08:11 INDICATION: Congestive heart failure TECHNIQUE: frontal and lateral views of the chest were obtained. COMPARISON: Chest radiograph date FINDINGS: No interval change in small bilateral pleural effusions. Cardiomegaly with pulmonary vascular congest ion. Bronchial wall thickening and mild interstitial and airspace opacities in the posterior lower nathalia ngs which could represent mild pulmonary edema, atelectasis, pneumonia or some combination thereof.. Thoracic kyphosis with moderate spondylosis. IMPRESSION: 1. Persistent opacities in the posterior lower lungs, most likely combination of mild pulmonary edema and atelectasis although differential includes pneumonia. 2. Small bilateral pleural effusions. 3. Cardiomegaly with pulmonary vascular congestion. Reviewed, dictated and finalized at location A. IMPRESSION: 1. Persistent opacities in the posterior lower lungs, most likely combination o f mild pulmonary edema and atelectasis although differential includes pneumonia . 2. Small bilateral pleural effusions. 3. Cardiomegaly with pulmonary vascular congestion.
[2024-10-14] MEDS: ALBUTEROL SULFATE NEB 2.5 MG/3 ML INH 5 MG INHALATION (14:50)
[2024-10-14 14:51] LABS: Basophils Percent Auto 0.4 % (0.2-1.2); Hemoglobin 19.7 g/dL (12.0-15.0); Immature Granulocyte Absolute 0.04 K/mm3 (0.00-0.031); Immature Granulocyte Percent A 0.5 % (0-0.5); Immature Platelet Fraction Pct 7.3 % (0.9-11.2); Lymphocytes Absolute Auto 0.67 K/mm3 (0.9-3.2); Lymphocytes Percent Auto 7.9 % (18.3-44.2); Mean Corpuscular HGB Conc 29.4 g/dl (32-36); Mean Corpuscular Hemoglobin 26.7 pg (26-34); Mean Corpuscular Volume 90.9 fl (80-100); Mean Platelet Volume 10.1 fl (7.4-10.4); Monocytes Absolute Auto 0.3 K/mm3 (0.1-0.6); Monocytes Percent Auto 3.6 % (2.6-8.5); Neutrophils Absolute Auto 7.5 K/mm3 (1.3-6.7); Neutrophils Percent Auto 87.6 % (45.5-73.1); Platelet Count Result 107 k/mm3 (150-375); Red Blood Count 7.37 M/mm3 (4.2-5.4); White Blood Count 8.5 K/mm3 (4.5-10.0)
[2024-10-14] MEDS: FUROSEMIDE INJ 40 MG/4 ML VIAL IV PUSH (14:54)
[2024-10-14 15:04] LABS: Alanine Aminotransferase 35 U/L (6-35); Albumin Level 4.3 g/dL (3.5-5.1); Alkaline Phosphatase 130 U/L (38-126); Anion Gap 6 mmol/L (4-12); Aspartate Amino Transferase 29 U/L (14-36); Bilirubin,Total 0.8 mg/dL (0.2-1.3); Blood Urea Nitrogen 41 mg/dL (7-17); Calcium 8.8 mg/dL (8.4-10.2); Carbon Dioxide 34 mmol/L (22-30); Chloride 95 mmol/L (98-107); Estimated CRCL calculation 34 ml/min; Estimated Glomerular Filt Rate 43; Glucose 134 mg/dL (65-110); Lactic Acid Reflex 1.9 mmol/L (0.7-2.0); Sodium 135 mmol/L (137-145)
--- NOTE | 2024-10-14 15:09 | ED.GENADULT ---
HPI - General Adult General Chief complaint: Extremity Problem,Nontraumatic Stated complaint: increased swelling, hx of CHF Time Seen by Provider: 10/14/24 14:19 History of Present Illness HPI narrative: 68-year-old female presents to the emergency department for evaluation for worsening shortness breath over the course of the last few days. Patient does have history of COPD and does continue to smoke. Patient also does have history of CHF. Patient reports she has had lower extremity edema for the last few days. Patient does report exertional shortness of breath. Upon arrival to the emergency department patient was 72% on room air and was 91% on 15 L but patient was transitioned to BiPAP shortly after arrival to the emergency department. Related Data Home Medications ?Medication ?Instructions ?Recorded ?Confirmed ?Last Taken ?Type loratadine 10 mg tablet (Claritin) 10 mg PO DAILY 09/09/23 10/04/24 Unknown History Allergies Allergy/AdvReac Type Severity Reaction Status Date / Time azithromycin Allergy Intermediate HIVES Verified 10/14/24 13:17 coconut Allergy Mild Hives Verified 10/14/24 13:17 acetaminophen AdvReac Mild abd Verified 10/14/24 13:17 cramping Review of Systems Review of Systems: All systems reviewed & are unremarkable except as noted in HPI and below PMFSH Past Medical History Medical History Dependence on supplemental oxygen Cigarette nicotine dependence with nicotine-induced disorder Pulmonary hypertension Chronic obstructive pulmonary disease Prediabetes Allergic rhinitis Hx of skin cancer, basal cell R lower eyelid Hyperlipidemia, unspecified Surgical History Surgical History History of surgical removal of skin lesion History of tubal ligation 1988 History of D&C 1978 Family History Family History Mother Renal failure Father Cancer Acute myocardial infarction Heart disease Diabetes mellitus Sibling Diabetes mellitus Anemia Crohn's colitis Social History Social History Social History: according to her sister the patient smokes up to 2 packs of cigarettes a day. She has 3 children and is disabled. 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 According to her sister the patient used to drink heavily but has not drank recently. 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 code status full code Smoking packs per day: 2 Smoking cigarettes per day: 40.0 Years smoked: 30 Smoking pack-years: 60.00 Smoking status: Current every day smoker Tobacco type: cigarettes Second hand tobacco smoke exposure: Yes Alcohol intake: unknown Alcohol use details: on occasion Substance use: unknown Substance use type: does not use Do You Feel Safe in your Home?: Yes Lack of Transportation: YES Lack of Food: Never True Current Housing: I Have Housing Concerned About Future Housing: No Difficulty Paying Gas/Electric Bills: No Difficulty Paying for Meds: No Currently Unemployed: YES Education: Trade/Vocational Certificate Difficulty w/ Childcare or Family Care: No Living arrangements: with family Occupation/Education: unemployed Gender identity (if verbalized by the patient): Female Sexual Orientation (if Verbalized by the Patient): Straight or Heterosexual Spiritual care concerns: No Exam Narrative: APPEARANCE: Well appearing, no pain, no distress, well-nourished. HEAD: normocephalic, atraumatic. EYES: PERRLA/EOMI, conjunctivae clear. NOSE: Normal no drainage EARS:TMS clear with good light reflex. THROAT: Pharynx clear, no exudate. NECK: Supple. No adenopathy, no masses. RESPIRATORY: Airway patent, respirations nonlabored. Clear to auscultation bilaterally, no rales, rhonchi, wheezing. CARDIOVASCULAR: Regular rate and rhythm without murmurs rubs or gallops. ABDOMINAL: Soft, nontender, nondistended, normal bowel sounds MUSCULOSKELETAL: Lower extremity edema NEURO: Alert. Cranial nerves II through XII intact. Good gait. Good coordination SKIN: Warm, dry. Normal Color Course Vital Signs Vital signs: Vital Signs Temperature 98.2 F 10/14/24 13:15 Pulse Rate 113 H 10/14/24 13:15 Respiratory Rate 22 H 10/14/24 13:15 Blood Pressure 136/79 10/14/24 13:15 Pulse Oximetry 91 10/14/24 13:15 Oxygen Delivery Room Air 10/14/24 13:15 Temperature 97.9 F 10/14/24 16:20 Pulse Rate 97 10/14/24 19:01 Respiratory Rate 16 10/14/24 19:01 Blood Pressure 127/59 L 10/14/24 19:01 Pulse Oximetry 100 10/14/24 19:01 Oxygen Delivery BiPAP 10/14/24 18:05 Oxygen Flow Rate 4 10/14/24 14:30 Medical Decision Making [facility] Narrative Medical decision making narrative: 68-year-old female presented to the emergency department for evaluation for worsening exertional shortness of breath and bilateral leg edema. Patient is currently afebrile with no leukocytosis hemoglobin of 19.7. INR is 1.0 patient's creatinine is 1.24 patient does have an elevated proBNP of 5600 UA was negative for infection patient was negative for influenza RSV and for COVID, chest x-ray does show pulmonary edema. Placed on BiPAP trouble after arrival to the emergency department for hypoxia of 70% on room air with concern for pulmonary edema and fluid overload. Patient was treated with IV Lasix. Case was discussed with the hospitalist and accepted for admission to IMU. Differential Diagnosis Differential Diagnosis: Pneumonia, COVID, RSV, influenza, pulmonary edema Vital Signs Vital Signs: Vital Signs Temperature 98.2 F 10/14/24 13:15 Pulse Rate 113 H 10/14/24 13:15 Respiratory Rate 22 H 10/14/24 13:15 Blood Pressure 136/79 10/14/24 13:15 Pulse Oximetry 91 10/14/24 13:15 Oxygen Delivery Room Air 10/14/24 13:15 Temperature 97.9 F 10/14/24 16:20 Pulse Rate 97 10/14/24 19:01 Respiratory Rate 16 10/14/24 19:01 Blood Pressure 127/59 L 10/14/24 19:01 Pulse Oximetry 100 10/14/24 19:01 Oxygen Delivery BiPAP 10/14/24 18:05 Oxygen Flow Rate 4 10/14/24 14:30 Lab Data Lab results reviewed: Yes I reviewed the patient's lab results. 10/14/24 14:42 10/14/24 14:42 Labs: Lab Results 10/14/24 10/14/24 10/14/24 Range/Units 14:42 15:56 16:24 WBC 8.5 (4.5-10.0) K/mm3 RBC 7.37 H (4.2-5.4) M/mm3 Hgb 19.7 H (12.0-15.0) g/dL Hct 67.0 H (37.0-47.0) % MCV 90.9 (80-100) fl MCH 26.7 (26-34) pg MCHC 29.4 L (32-36) g/dl RDW 19.0 H (11.5-14.5) % Plt Count 107 L (150-375) k/mm3 MPV 10.1 (7.4-10.4) fl Immature Gran % (Auto) 0.5 (0-0.5) % Neut % (Auto) 87.6 H (45.5-73.1) % Lymph % (Auto) 7.9 L (18.3-44.2) % [place] % (Auto) 3.6 (2.6-8.5) % Eos % (Auto) 0.0 (0-4.4) % Baso % (Auto) 0.4 (0.2-1.2) % Lymph # (Auto) 0.67 L (0.9-3.2) K/mm3 [place] # (Auto) 0.3 (0.1-0.6) K/mm3 Eos # (Auto) 0.0 (0-0.3) K/mm3 Baso # (Auto) 0.0 (0.0-0.1) K/mm3 Abs Immat Gran (auto) 0.04 H (0.00-0.031) K/mm3 Absolute Neuts (auto) 7.5 H (1.3-6.7) K/mm3 Absolute Nucleated RBC 0.000 (0.0-0.012) K/mm3 Band Neutrophils % Not Reportable Nucleated RBC % 0.0 (0.0-0.2) % Platelet Estimate Slightly decreased (Adequate) % Immature Plt Fraction 7.3 (0.9-11.2) % Hypochromasia 1+ Anisocytosis 1+ Schistocytes None seen PT 13.8 (11.1-14.7) Seconds INR 1.0 APTT 23.0 (22.3-36.8) Seconds Sodium 135 L (137-145) mmol/L Potassium 5.0 (3.4-5.0) mmol/L Chloride 95 L (98-107) mmol/L Carbon Dioxide 34 H (22-30) mmol/L Anion Gap 6 (4-12) mmol/L BUN 41 H D (7-17) mg/dL Creatinine 1.24 H (0.7-1.0) mg/dL Estim Creat Clear Calc 34 ml/min Estimated GFR 43 L (59 - ) Glucose 134 H (65-110) mg/dL Lactic Acid 1.9 (0.7-2.0) mmol/L Calcium 8.8 (8.4-10.2) mg/dL Total Bilirubin 0.8 (0.2-1.3) mg/dL AST 29 (14-36) U/L ALT 35 (6-35) U/L Alkaline Phosphatase 130 H (38-126) U/L NT-Pro-B Natriuret Pep 5630 H (19.9-100) pg/mL Total Protein 7.0 (6.3-8.2) g/dL Albumin 4.3 (3.5-5.1) g/dL Urine Color Yellow (Yellow) Urine Appearance Clear (Clear) Urine pH 5.0 (5.0-9.0) Ur Specific [place] 1.012 (1.001-1.035) Urine Protein Negative (Negative) mg/dL Urine Glucose (UA) Negative (Negative) mg/dL Urine Ketones Negative (Negative) mg/dL Ur Blood (Man) Negative (Negative) Urine Nitrate Negative (Negative) Urine Bilirubin Negative (Negative) Urine Urobilinogen 0.2 (<2.0) mg/dL Leukocyte Esterase Rfl Negative (Negative) NIDA/UL Influenza A (RT-PCR) Negative (Negative) Influenza B (RT-PCR) Negative (Negative) RSV (RT-PCR) Negative (Negative) SARS-CoV-2 RNA (RT-PCR) Negative (Negative) Critical Care Time Critical Care Time Critical Care Time: Yes Total Critical Care Time: 35 Discharge Plan Discharge Clinical Impression: CHF (congestive heart failure), Hypoxia Patient Disposition: Still a Patient Condition: Serious
[2024-10-14 15:26] LABS: Influenza A QL RT-PCR Negative (Negative); Influenza B QL RT-PCR Negative (Negative); RSV RNA, RT-PCR Negative (Negative); SARS-CoV-2 RNA PCR Negative (Negative)
[2024-10-14 15:35] LABS: Anisocytosis 1+; Hypochromasia 1+; Platelet Estimate Slightly Decreased (Adequate); Schistocytes None Seen
[2024-10-14 16:14] LABS: NT Pro B Type Natriuretic Pept 5630 pg/mL (19.9-100)
[2024-10-14 16:32] LABS: Add Urine Microscopic? NO; Appearance Urine Clear (Clear); Bilirubin Urine Negative (Negative); Blood Urine Negative (Negative); Color Urine Yellow (Yellow); Glucose Urine UA Negative (Negative); Ketones Urine Negative (Negative); Leukocyte Esterase Ur Negative LEU/UL (Negative); Nitrate Urine Negative (Negative); Protein Urine Negative (Negative); Specific Grav Ur 1.012 (1.001-1.035); Urobilinogen Urine 0.2 mg/dL (<2.0)
[2024-10-14 16:36] LABS: Prothrombin Time 13.8 Seconds (11.1-14.7)
--- NOTE | 2024-10-14 17:34 | PC.NURSE ---
1730 Updated pts on pts condition and admission status.
--- NOTE | 2024-10-14 18:59 | P.HP_ITS ---
H&P: HPI History of Present Illness Date/Time: 10/14/24 18:59 Chief Complaint: Lower Extremity Edema Narrative: 68 y/o F with PMH of pulmonary hypertension, COPD, prediabetes, hyperlipidemia, basal cell carcinoma s/p excision presents here with lower extremity edema and shortness of breath. The patient presents here from home for further evaluation of bilateral lower extremity swelling and shortness of breath. She reports a history of congestive heart failure and currently takes Lasix 20 mg daily, reports compliance with medication. Shortness of breath is exertional in nature. She denies fever, chills, body aches. chest pain, dizziness, nausea, vomiting, or diarrhea. She arrived to the emergency department 72% on room air and tachypneic. O2 sat increased to 91% on 15L. Subsequently placed on BiPAP due to concern for CHF exacerbation, now 100%. Of note, the patient was recently seen by her PCP on 10/04 for a sick visit and diagnosed with a URI and COPD exacerbation. She was prescribed Levaquin and Prednisone. She has since completed the antibiotic course and has one more dose of prednisone tomorrow. Initial VS at presentation: 98.2? F, HR 113, R 22, 136/79, and 72% on room air. Now 100% on BiPAP. ED workup showed: No leukocytosis, hemoglobin 19.7 (slightly increased from baseline), sodium 135, creatinine 1.4 and GFR 43 (previously 0.98 and GFR 64 on 09/09/2023), BNP 5630, UA unremarkable, and viral PCR negative. CXR showed likely congestive heart failure with cardiomegaly, mild pulmonary edema with lower lung predominance and small right pleural effusion. Review of Systems Review of Systems: All systems reviewed & are unremarkable except as noted in HPI and below [facility] Past Medical History Medical History CHF (congestive heart failure) Cigarette nicotine dependence with nicotine-induced disorder Pulmonary hypertension Chronic obstructive pulmonary disease Prediabetes A1c 5.8% in 2023 Allergic rhinitis Hx of skin cancer, basal cell R lower eyelid Hyperlipidemia, unspecified Surgical History Surgical History History of surgical removal of skin lesion History of tubal ligation 1988 History of D&C 1978 Family History Family History Mother Renal failure Father Cancer Acute myocardial infarction Heart disease Diabetes mellitus Sibling Diabetes mellitus Anemia Crohn's colitis Social History Social History Social History: according to her sister the patient smokes up to 2 packs of cigarettes a day. She has 3 children and is disabled. 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 According to her sister the patient used to drink heavily but has not drank recently. 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 code status full code Smoking packs per day: 1.25 Smoking cigarettes per day: 25.0 Years smoked: 51 Smoking pack-years: 63.75 Smoking status: Current every day smoker Tobacco type: cigarettes Second hand tobacco smoke exposure: Yes Alcohol intake: current Drinks per week: 14 Alcohol use details: on occasion Substance use: former Substance use type: marijuana Do You Feel Safe in your Home?: Yes Lack of Transportation: No Lack of Food: Never True Current Housing: I Have Housing Concerned About Future Housing: No Difficulty Paying Gas/Electric Bills: YES Difficulty Paying for Meds: No Currently Unemployed: No Education: High School Diploma/GED Difficulty w/ Childcare or Family Care: No Living arrangements: with family Occupation/Education: unemployed Gender identity (if verbalized by the patient): Female Sexual Orientation (if Verbalized by the Patient): Straight or Heterosexual Spiritual care concerns: No Meds Home Medications and Allergies Home Medications ?Medication ?Instructions ?Recorded ?Confirmed ?Type loratadine 10 mg tablet (Claritin) 10 mg PO DAILY 09/09/23 10/04/24 History nebulizers #1 ea 10/15/23 Rx furosemide 20 mg tablet 20 mg PO DAILY #90 tabs 01/26/24 10/04/24 Rx potassium chloride 10 mEq 10 meq PO DAILY #90 tabs 01/26/24 10/04/24 Rx tablet,extended release fluticasone fur. 200 mcg-umeclid 1 inh inhalation DAILY #60 ea 09/14/24 10/04/24 Rx 62.5 mcg-vilant 25 mcg inhalat.powder (Trelegy Ellipta) benzonatate 200 mg capsule 200 mg PO TID PRN cough #30 caps 09/16/24 10/04/24 Rx levofloxacin 750 mg tablet 750 mg PO DAILY #7 tabs 10/04/24 10/04/24 Rx prednisone 20 mg tablet 20 mg PO DAILY #15 tabs 10/04/24 10/04/24 Rx albuterol sulfate 2.5 mg/3 mL 2.5 mg (3 mL) inhalation Q4HRT PRN 10/10/24 Rx (0.083 %) solution for nebulization Shortness Of Breath #30 mL albuterol sulfate 90 mcg/actuation 2 puff inhalation Q6-8H PRN 10/10/24 Rx aerosol inhaler shortness of breath or wheezing #6.7 grams Allergies Allergy/AdvReac Type Severity Reaction Status Date / Time azithromycin Allergy Intermediate HIVES Verified 10/14/24 20:24 coconut Allergy Mild Hives Verified 10/14/24 20:24 acetaminophen AdvReac Mild abd Verified 10/14/24 20:24 cramping Vital Signs Vital Signs - 24 hr 10/14/24 13:15 10/14/24 14:26 10/14/24 14:26 Temperature 98.2 F Pulse Rate 113 H Respiratory Rate 22 H Blood Pressure 136/79 Pulse Oximetry 91 70 L 93 Oxygen Delivery Room Air Room Air Non-Rebreather Mask Oxygen Flow Rate 15 10/14/24 14:27 10/14/24 14:30 10/14/24 14:40 Temperature Pulse Rate 109 H 106 H Respiratory Rate 16 22 H Blood Pressure 125/79 Pulse Oximetry 97 98 96 Oxygen Delivery Nasal Cannula BiPAP Oxygen Flow Rate 4 10/14/24 14:47 10/14/24 14:54 10/14/24 15:01 Temperature Pulse Rate 103 H 103 H Respiratory Rate 27 H Blood Pressure 137/60 Pulse Oximetry 94 Oxygen Delivery BiPAP Oxygen Flow Rate 10/14/24 15:07 10/14/24 15:16 10/14/24 16:17 Temperature Pulse Rate 107 H 109 H 104 H Respiratory Rate 25 H Blood Pressure 128/64 Pulse Oximetry 90 93 Oxygen Delivery Oxygen Flow Rate 10/14/24 16:20 10/14/24 16:30 10/14/24 16:31 Temperature 97.9 F Pulse Rate 105 H 105 H 105 H Respiratory Rate 20 Blood Pressure 125/70 131/52 L Pulse Oximetry 96 95 Oxygen Delivery Oxygen Flow Rate 10/14/24 16:37 10/14/24 16:45 10/14/24 16:46 Temperature Pulse Rate 104 H 103 H 104 H Respiratory Rate 24 H Blood Pressure 129/57 L Pulse Oximetry 99 97 96 Oxygen Delivery BiPAP Oxygen Flow Rate 10/14/24 17:00 10/14/24 17:01 10/14/24 17:15 Temperature Pulse Rate 105 H 103 H 102 H Respiratory Rate Blood Pressure 118/55 L Pulse Oximetry 96 95 96 Oxygen Delivery Oxygen Flow Rate 10/14/24 17:16 10/14/24 17:31 10/14/24 17:46 Temperature Pulse Rate 99 101 H 98 Respiratory Rate Blood Pressure 118/56 L 125/53 L 121/55 L Pulse Oximetry 96 96 Oxygen Delivery Oxygen Flow Rate 10/14/24 18:01 10/14/24 18:05 10/14/24 18:16 Temperature Pulse Rate 103 H 106 H 95 Respiratory Rate 16 Blood Pressure 132/52 L 142/73 H Pulse Oximetry 96 Oxygen Delivery BiPAP Oxygen Flow Rate 10/14/24 18:31 Temperature Pulse Rate 99 Respiratory Rate 20 Blood Pressure 122/82 Pulse Oximetry 97 Oxygen Delivery Oxygen Flow Rate Exam Narrative: coarse exp rub more prominenet in the bilateral bases. 2+ pitting edema, symm. Const: General: comfortable and no acute distress Other: , female, nontoxic appearance HENMT: Face/Nose/Sinus: Normal nares present Mouth: Yes dry mucous membranes (BiPAP in place) Eyes: General: appearance normal, both eyes and all related structures Sclera: sclerae normal Pupils: Equal, round and reactive pupils present EOM: EOMs intact bilaterally Resp: Effort & Inspection: normal respiratory effort Other: Coarse expiratory rub bibasilar. No wheezing. Moderate to good air movement in all lung garcia. Cardio: Rate: regular rate Rhythm: regular rhythm Other: S1-S2 present without murmur, rub, ectopy GI: Other: Abdomen soft, nondistended, nontender. Normoactive bowel sounds in all quadrants. Skin: General skin exam: normal color and no rashes or lesions noted Wounds: no wounds Neuro: Speech: normal speech Motor exam (neuro): 5/5 motor strength present throughout Sensory Exam: normal sensation Other: A&O x4 Extrem: Other: 2+ pitting edema to bilateral lower extr emities extending to mid calf, symmetric. Psych: Mental Status: mental status grossly normal Affect: normal affect Other: Good insight and judgment, pleasant H&P: Results Labs Labs: Short CBC 10/14/24 Range/Units 14:42 WBC 8.5 (4.5-10.0) K/mm3 Hgb 19.7 H (12.0-15.0) g/dL Hct 67.0 H (37.0-47.0) % Plt Count 107 L (150-375) k/mm3 BMP 10/14/24 14:42 Sodium 135 L Potassium 5.0 Chloride 95 L Carbon Dioxide 34 H BUN 41 H D Creatinine 1.24 H Glucose 134 H Calcium 8.8 Liver Function 10/14/24 Range/Units 14:42 Total Bilirubin 0.8 (0.2-1.3) mg/dL AST 29 (14-36) U/L ALT 35 (6-35) U/L Alkaline Phosphatase 130 H (38-126) U/L Albumin 4.3 (3.5-5.1) g/dL Urine 10/14/24 Range/Units 16:24 Urine Color Yellow (Yellow) Urine Appearance Clear (Clear) Urine pH 5.0 (5.0-9.0) Ur Specific [place] 1.012 (1.001-1.035) Urine Protein Negative (Negative) mg/dL Urine Glucose (UA) Negative (Negative) mg/dL Assessment and Plan Assessment and plan (1) Hypoxia: Code(s): R09.02 - Hypoxemia Status: Acute Assessment and Plan: - 72% on room air at arrival -> 91% on 15L -> 100% on BiPAP - CXR showed Likely congestive heart failure with cardiomegaly, mild pulmonary edema with lower lung predominance and small right pleural effusion. - BNP elevated, may have component of CHF exacerbation. Update echo, see below. - History of severe COPD, previously required supplemental oxygen but had a negative 6 minute walk test in 2023. Recently saw her PCP on 10/04/2024 with similar complaints, started on prednisone and Levaquin. May also be component to patient's hypoxia, see below. (2) CHF (congestive heart failure): Qualifiers: Heart failure chronicity: acute on chronic Heart failure type: diastolic Qualified Code(s): I50.33 - Acute on chronic diastolic (congestive) heart failure Code(s): I50.9 - Heart failure, unspecified Status: Acute Assessment and Plan: - BNP 5630 - most recent echo (08/22/22): Hyperdynamic systolic function, estimated EF > 70%, diastolic function is indeterminate, severe pulmonary hypertension, see report for full details. - update echo - currently on: Lasix 20 mg daily, will continue as Lasix 40 mg IV daily - monitor I&Os and daily weights - trend renal function (3) Chronic obstructive pulmonary disease: Qualifiers: COPD type: unspecified COPD Qualified Code(s): J44.9 - Chronic obstructive pulmonary disease, unspecified Code(s): J44.9 - Chronic obstructive pulmonary disease, unspecified Status: Acute Assessment and Plan: - DuoNebs kelsi - prednisone 40 mg PO x1 tomorrow to complete course started 10 days ago for exacerbation. will hold on continuing steroid course as the patient is not wheezing. - continue home medications Plan Acute respiratory failure likely multifactorial including COPD and CHF. Patient recently treated for a COPD exacerbation 10 days ago. Prescribed prednisone taper, suspect increased volume retention secondary to steroid use. Patient has 1 more dose of prednisone, will give tomorrow. No wheezing on exam, however hypoxic at arrival. Will continue DuoNeb scheduled. Additionally plan to increase diuretic from 20 mg p.o. daily to 40 mg IV daily. Awaiting updated echo. Diet: Heart healthy GI Prophylaxis: Not currently indicated DVT Prophylaxis: IV fluids: None Lines/Tubes: Peripheral IV Code Status: DNR Quality VTE Prophylaxis VTE prophylaxis: mechanical ordered Hospitalist [facility] Advance Care Plan I have confirmed that the patient's Advanced Care Plan is present, code status is documented, or surrogate decision maker is listed in patient medical record.: Yes Medication Reconciliation I have utilized all available resources to obtain, update and review the patients current medications (includes all prescriptions, OTC, herbals, cannabis, and nutritional supplements).: Yes
--- NOTE | 2024-10-14 19:16 | PC.NURSE ---
Received report from RAGHU Johnston for cont. of care. Pt AOX3, lying on stretcher currently on Bipap with oxygen saturation at 99% , and cont. cardiac monitoring. Pt ppears in NAD, waiting on respiratory for transport.
--- NOTE | 2024-10-14 20:16 | ADMGEN ---
This patient, Marco A Sigala, was admitted to IMU Room 203-01 on 10/14/24 at 1947. Patient/family oriented to hospital policies and general routines including ID bracelet, bed and alarms, visiting hours, pain management, procedures, bathroom and other care routines, personal items, smoking policy, room service/diet, and visiting hours. Information on how to activate the Rapid Response Team has been discussed. Patient/Family are encouraged to report perceived risks to care and to ask questions if they do not understand what they are told or what they should do.
[2024-10-14] MEDS: IPRATROPIUM 0.5 MG/ALBUTEROL SULFATE 2.5 MG AMPUL.NEB 3 ML INHALATION (20:23)
[2024-10-15] VITALS (23 sets, daily range): BP systolic 116–127; BP diastolic 45–56; PULSE 87–111; RESP 13–24; TEMP 36.4–36.9; O2SAT 89–97
--- NOTE | 2024-10-15 | ECHO_ITS ---
Patient Info Name: Marco A Sigala Age: 68 years : 1955 Gender: Female Ht: 64 in Wt: 165 lbs BSA: 1.86 m2 HR: 92 bpm BP: 117 / 51 mmHg Heart Rhythm: Sinus Rhythm Technical Quality: Fair Exam Date: 10/15/2024 7:41 AM Exam Location: Echo Lab Patient Status: Inpatient Admit Date: 10/15/2024 Staff Ordering Physician: Jayde Walsh APRN Photographic Artist: Ofelia Pizano RDCS Attending Provider: Nicolas Harris MD Referring Physician: Nico SUE; Exam Type: CA echo doppler color flow Study Info Indications - Elevated BNP, Hypoxia Complete two-dimensional, color flow and Doppler transthoracic echocardiogram is performed. Summary 1. Complete two-dimensional, color flow and Doppler transthoracic echocardiogram is performed. 2. Left ventricular chamber dimension is normal. 3. Left ventricular systolic function is normal, estimated at 65-70%. 4. There is moderately increased left ventricular wall thickness. 5. The left ventricular diastolic function is grade I diastolic dysfunction. 6. D-shaped septum seen in both systole and diastole. 7. Right ventricular chamber dimension is mildly enlarged. 8. Right ventricular systolic function is reduced. 9. Left atrial chamber dimension is mildly enlarged. 10. Right atrial chamber dimension is mildly enlarged. 11. There is mild tricuspid valve regurgitation. 12. There is small pericardial effusion. Left Ventricle Left ventricular chamber dimension is normal. Left ventricular systolic function is normal, estimated at 65-70%. There is moderately increased left ventricular wall thickness. The left ventricular diastolic function is grade I diastolic dysfunction. D-shaped septum seen in both systole and diastole. Right Ventricle Right ventricular chamber dimension is mildly enlarged. Right ventricular systolic function is reduced. Left Atria Left atrial chamber dimension is mildly enlarged. Right Atria Right atrial chamber dimension is mildly enlarged. Atrial Septum Intact interatrial septum visualized by color flow imaging. Aortic Valve The aortic valve is trileaflet. There is mild aortic valve sclerosis. There is no aortic valve stenosis. There is trace aortic valve regurgitation. Pulmonic Valve The pulmonic valve is normal. There is no pulmonic valve stenosis. There is trace pulmonic regurgitation. Mitral Valve The mitral valve has normal leaflets. There is no mitral valve stenosis. There is trace mitral valve regurgitation. Tricuspid Valve The tricuspid valve leaflets are normal. There is no significant tricuspid valve stenosis. There is mild tricuspid valve regurgitation. No pulmonary hypertension, estimated pulmonary arterial systolic pressure is 28 mmHg. Pericardium/Pleural The pericardium appears normal. There is small pericardial effusion. Inferior Vena Cava Dilated inferior vena cava with >50% collapse upon inspiration consistent with elevated right atrial pressure, 10 mmHg. Aorta The aortic root size at the sinus of Valsalva is normal. Left Ventricular Outflow Tract Name Value Normal LVOT 2D LVOT Diameter 2.0 cm LVOT Doppler LVOT Peak Gradient 3 mmHg LVOT Mean Gradient 1 mmHg LVOT VTI 16 cm LVOT VTI/AV VTI Ratio 0.7 LVOT Stroke Volume 51 ml LVOT CO 11.1 l/min LVOT CI 6.0 l/min/m2 Pulmonic Valve Name Value Normal RVOT Doppler RVOT Peak Gradient 1 mmHg PV Doppler PV Peak Gradient 4 mmHg Mitral Valve Name Value Normal MV Doppler MV Decel Sheridan 554 cm/s2 MV PHT 41 ms MV Area (PHT) 5.3 cm2 4.0-5.0 MV Diastolic Function MV E Peak Velocity 79 cm/s MV A Peak Velocity 107 cm/s MV E/A 0.7 MV Decel Time 142 ms MV Annular TDI MV E/e' (Septal) 19.6 <=8.0 MV E/e' (Lateral) 11.2 <=8.0 MV E/e' (Average) 15.4 Tricuspid Valve Name Value Normal TV Regurgitation Doppler TR Peak Velocity 210 cm/s TR Peak Gradient 18 mmHg Estimated PAP/RSVP RA Pressure 10 mmHg <=5 PA Systolic Pressure 28 mmHg <36 RV Systolic Pressure 28 mmHg <36 Aortic Valve Name Value Normal AV Doppler AV Peak Velocity 114 cm/s AV Peak Gradient 5 mmHg AV Mean Gradient 3 mmHg AV VTI 25 cm AV Area (Cont Eq VTI) 2.1 cm2 >=3.0 AV Area (Cont Eq Benja) 2.3 cm2 AV Regurgitation 2D LVOT Area 3.2 cm2 Ventricles Name Value Normal LV Dimensions 2D/MM IVS Diastolic Thickness (2D) 1.2 cm 0.6-1.0 LVID Diastole (2D) 4.8 cm 3.8-5.2 LVIW Diastolic Thickness (2D) 1.1 cm 0.6-0.9 LVID Systole (2D) 3.4 cm 2.2-3.5 LVOT Diameter 2.0 cm LV Mass (2D Cubed) 201.67 g 67.00-162.00 LV Mass Index (2D Cubed) 108 g/m2 43-95 Relative Wall Thickness (2D) 0.45 LV Fractional Shortening/Ejection Fraction 2D/MM LV Fractional Shortening (2D) 28 % 27-45 LV EF (2D Teichpetrosz) 55 % 54-74 LV Diastolic Volume (4C MOD) 78 ml LV EF (4C MOD) 61 % LV Diastolic Volume (2C MOD) 87 ml LV EF (2C MOD) 67 % LV Diastolic Volume (BP MOD) 83 ml 46-106 LV Diastolic Volume Index (BP MOD) 44 ml/m2 29-61 LV Systolic Volume (BP MOD) 30 ml 14-42 LV Systolic Volume Index (BP MOD) 16 ml/m2 8-24 LV EF (BP MOD) 63 % 54-74 LV Diastolic Length (4C) 7.4 cm LV Systolic Length (4C) 5.9 cm LV Stroke Volume (4C MOD) 47 ml Atria Name Value Normal LA Dimensions LA Volume (4C A-L) 77 ml LA Volume (BP A-L) 62 ml RA Dimensions RA Area (4C) 17.5 cm2 <=18.0 Report Signatures
[2024-10-15] MEDS: IPRATROPIUM 0.5 MG/ALBUTEROL SULFATE 2.5 MG AMPUL.NEB 3 ML INHALATION ×4 (01:40→19:42)
[2024-10-15 04:25] LABS: Basophils Percent Auto 0.4 % (0.2-1.2); Eosinophils Percent Auto 0.1 % (0-4.4); Hematocrit 59.6 % (37.0-47.0); Hemoglobin 17.4 g/dL (12.0-15.0); Immature Granulocyte Absolute 0.02 K/mm3 (0.00-0.031); Immature Granulocyte Percent A 0.3 % (0-0.5); Immature Platelet Fraction Pct 7.3 % (0.9-11.2); Lymphocytes Absolute Auto 2.12 K/mm3 (0.9-3.2); Lymphocytes Percent Auto 28.2 % (18.3-44.2); Mean Corpuscular HGB Conc 29.2 g/dl (32-36); Mean Corpuscular Hemoglobin 26.6 pg (26-34); Mean Corpuscular Volume 91.1 fl (80-100); Mean Platelet Volume 10.6 fl (7.4-10.4); Monocytes Absolute Auto 0.8 K/mm3 (0.1-0.6); Monocytes Percent Auto 11.2 % (2.6-8.5); Neutrophils Absolute Auto 4.5 K/mm3 (1.3-6.7); Neutrophils Percent Auto 59.8 % (45.5-73.1); Red Blood Count 6.54 M/mm3 (4.2-5.4); Red Cell Distribution Width 18.5 % (11.5-14.5); White Blood Count 7.5 K/mm3 (4.5-10.0)
[2024-10-15 04:48] LABS: Alanine Aminotransferase 25 U/L (6-35); Albumin Level 3.3 g/dL (3.5-5.1); Alkaline Phosphatase 78 U/L (38-126); Anion Gap 2 mmol/L (4-12); Aspartate Amino Transferase 25 U/L (14-36); Bilirubin,Total 0.9 mg/dL (0.2-1.3); Blood Urea Nitrogen 33 mg/dL (7-17); Calcium 8.7 mg/dL (8.4-10.2); Carbon Dioxide 36 mmol/L (22-30); Chloride 97 mmol/L (98-107); Estimated CRCL calculation 63 ml/min; Estimated Glomerular Filt Rate > 60; Glucose 85 mg/dL (65-110); Potassium 4.6 mmol/L (3.4-5.0); Sodium 135 mmol/L (137-145)
[2024-10-15 05:06] LABS: Platelet Count Result 94 k/mm3 (150-375)
[2024-10-15 05:08] LABS: Anisocytosis 1+; Band Neutrophils Percent 0 % (0-6); Platelet Estimate Slightly Decreased (Adequate); Schistocytes None Seen
[2024-10-15] MEDS: FLUTICASONE/UMECLIDIN/VILANTER 200-62.5-25 MCG ELLIPTA 1 PUFF INHALATION (08:18)
--- NOTE | 2024-10-15 08:31 | PM.IMPN ---
Progress Note: A&P Assessment and Plan (1) Hypoxia: Code(s): R09.02 - Hypoxemia Status: Acute Assessment and Plan: - 72% on room air at arrival -> 91% on 15L -> 100% on BiPAP - CXR showed Likely congestive heart failure with cardiomegaly, mild pulmonary edema with lower lung predominance and small right pleural effusion. - BNP elevated, may have component of CHF exacerbation. Update echo, see below. - History of severe COPD, previously required supplemental oxygen but had a negative 6 minute walk test in 2023. Recently saw her PCP on 10/04/2024 with similar complaints, started on prednisone and Levaquin. May also be component to patient's hypoxia, see below. (2) CHF (congestive heart failure): Qualifiers: Heart failure chronicity: acute on chronic Heart failure type: diastolic Qualified Code(s): I50.33 - Acute on chronic diastolic (congestive) heart failure Code(s): I50.9 - Heart failure, unspecified Status: Acute Assessment and Plan: - BNP 5630 - most recent echo (08/22/22): Hyperdynamic systolic function, estimated EF > 70%, diastolic function is indeterminate, severe pulmonary hypertension, see report for full details. - update echo - currently on: Lasix 20 mg daily, will continue as Lasix 40 mg IV daily - monitor I&Os and daily weights - trend renal function (3) Chronic obstructive pulmonary disease: Qualifiers: COPD type: unspecified COPD Qualified Code(s): J44.9 - Chronic obstructive pulmonary disease, unspecified Code(s): J44.9 - Chronic obstructive pulmonary disease, unspecified Status: Acute Assessment and Plan: - DuoNebs kelsi - prednisone 40 mg PO x1 tomorrow to complete course started 10 days ago for exacerbation. will hold on continuing steroid course as the patient is not wheezing. - continue home medications Plan Acute respiratory failure likely multifactorial including COPD and CHF. Patient recently treated for a COPD exacerbation 10 days ago. Prescribed prednisone taper, suspect increased volume retention secondary to steroid use. Patient has 1 more dose of prednisone, will give tomorrow. No wheezing on exam, however hypoxic at arrival. Will continue DuoNeb scheduled. Additionally plan to increase diuretic from 20 mg p.o. daily to 40 mg IV daily. Awaiting updated echo. Diet: Heart healthy GI Prophylaxis: Not currently indicated DVT Prophylaxis: IV fluids: None Lines/Tubes: Peripheral IV Code Status: DNR Subjective Date/time seen: 10/15/24 08:31 Interval history: Patient was seen during the morning today. Mild shortness of breath. No Chest pain. No abdominal pain, nausea, no vomiting. Review of Systems Review of Systems: All systems reviewed & are unremarkable except as noted in HPI and below Exam Narrative: coarse exp rub more prominenet in the bilateral bases. 2+ pitting edema, symm. Const: General: comfortable and no acute distress Other: , female, nontoxic appearance HENMT: Face/Nose/Sinus: Normal nares present Mouth: Yes dry mucous membranes (BiPAP in place) Eyes: General: appearance normal, both eyes and all related structures Sclera: sclerae normal Pupils: Equal, round and reactive pupils present EOM: EOMs intact bilaterally Resp: Effort & Inspection: normal respiratory effort Other: Coarse expiratory rub bibasilar. No wheezing. Moderate to good air movement in all lung garcia. Cardio: Rate: regular rate Rhythm: regular rhythm Other: S1-S2 present without murmur, rub, ectopy GI: Other: Abdomen soft, nondistended, nontender. Normoactive bowel sounds in all quadrants. Skin: General skin exam: normal color and no rashes or lesions noted Wounds: no wounds Neuro: Cranial nerves: Yes Equal, round and reactive pupils present Speech: normal speech Motor exam (neuro): 5/5 motor strength present throughout Sensory Exam: normal sensation Other: A&O x4 Extrem: Other: 2+ pitting edema to bilateral lower extremities extending to mid calf, symmetric. Psych: Mental Status: mental status grossly normal Affect: normal affect Other: Good insight and judgment, pleasant Objective Data Vital Signs Vital Signs: Vital Signs - 24 hr 10/14/24 13:15 10/14/24 14:26 10/14/24 14:26 Temperature 36.8 C Pulse Rate 113 H Respiratory Rate 22 H Blood Pressure 136/79 Pulse Oximetry 91 70 L 93 Oxygen Delivery Room Air Room Air Non-Rebreather Mask Oxygen Flow Rate 15 Fraction of Inspired Oxygen 10/14/24 14:27 10/14/24 14:30 10/14/24 14:40 Temperature Pulse Rate 109 H 106 H Respiratory Rate 16 22 H Blood Pressure 125/79 Pulse Oximetry 97 98 96 Oxygen Delivery Nasal Cannula BiPAP Oxygen Flow Rate 4 Fraction of Inspired Oxygen 10/14/24 14:47 10/14/24 14:54 10/14/24 15:01 Temperature Pulse Rate 103 H 103 H Respiratory Rate 27 H Blood Pressure 137/60 Pulse Oximetry 94 Oxygen Delivery BiPAP Oxygen Flow Rate Fraction of Inspired Oxygen 10/14/24 15:07 10/14/24 15:16 10/14/24 16:17 Temperature Pulse Rate 107 H 109 H 104 H Respiratory Rate 25 H Blood Pressure 128/64 Pulse Oximetry 90 93 Oxygen Delivery Oxygen Flow Rate Fraction of Inspired Oxygen 10/14/24 16:20 10/14/24 16:30 10/14/24 16:31 Temperature 36.6 C Pulse Rate 105 H 105 H 105 H Respiratory Rate 20 Blood Pressure 125/70 131/52 L Pulse Oximetry 96 95 Oxygen Delivery Oxygen Flow Rate Fraction of Inspired Oxygen 10/14/24 16:37 10/14/24 16:45 10/14/24 16:46 Temperature Pulse Rate 104 H 103 H 104 H Respiratory Rate 24 H Blood Pressure 129/57 L Pulse Oximetry 99 97 96 Oxygen Delivery BiPAP Oxygen Flow Rate Fraction of Inspired Oxygen 10/14/24 17:00 10/14/24 17:01 10/14/24 17:15 Temperature Pulse Rate 105 H 103 H 102 H Respiratory Rate Blood Pressure 118/55 L Pulse Oximetry 96 95 96 Oxygen Delivery Oxygen Flow Rate Fraction of Inspired Oxygen 10/14/24 17:16 10/14/24 17:31 10/14/24 17:46 Temperature Pulse Rate 99 101 H 98 Respiratory Rate Blood Pressure 118/56 L 125/53 L 121/55 L Pulse Oximetry 96 96 Oxygen Delivery Oxygen Flow Rate Fraction of Inspired Oxygen 10/14/24 18:01 10/14/24 18:05 10/14/24 18:16 Temperature Pulse Rate 103 H 106 H 95 Respiratory Rate 16 Blood Pressure 132/52 L 142/73 H Pulse Oximetry 96 Oxygen Delivery BiPAP Oxygen Flow Rate Fraction of Inspired Oxygen 10/14/24 18:31 10/14/24 18:46 10/14/24 19:01 Temperature Pulse Rate 99 102 H 97 Respiratory Rate 20 16 16 Blood Pressure 122/82 137/99 H 127/59 L Pulse Oximetry 97 100 100 Oxygen Delivery Oxygen Flow Rate Fraction of Inspired Oxygen 10/14/24 19:40 10/14/24 19:52 10/14/24 20:00 Temperature 36.3 C L Pulse Rate 107 H 101 H 98 Respiratory Rate 19 20 Blood Pressure 117/51 L Pulse Oximetry 96 95 Oxygen Delivery BiPAP Oxygen Flow Rate Fraction of Inspired Oxygen 10/14/24 20:05 10/14/24 20:23 10/14/24 20:29 Temperature Pulse Rate 107 H 94 94 Respiratory Rate 19 16 16 Blood Pressure Pulse Oximetry 96 95 Oxygen Delivery BiPAP BiPAP Oxygen Flow Rate Fraction of Inspired Oxygen 30 10/14/24 20:30 10/14/24 22:00 10/14/24 23:10 Temperature Pulse Rate 95 92 94 Respiratory Rate 16 18 Blood Pressure Pulse Oximetry 93 Oxygen Delivery BiPAP Oxygen Flow Rate Fraction of Inspired Oxygen 30 10/14/24 23:58 10/15/24 00:00 10/15/24 00:00 Temperature 36.4 C L Pulse Rate 90 94 87 Respiratory Rate 17 18 Blood Pressure 127/56 L Pulse Oximetry 93 93 Oxygen Delivery BiPAP Oxygen Flow Rate Fraction of Inspired Oxygen 10/15/24 01:40 10/15/24 01:43 10/15/24 01:46 Temperature Pulse Rate 93 90 89 Respiratory Rate 16 13 15 Blood Pressure Pulse Oximetry 89 L Oxygen Delivery BiPAP Oxygen Flow Rate Fraction of Inspired Oxygen 10/15/24 02:00 10/15/24 04:00 10/15/24 04:00 Temperature 36.4 C L Pulse Rate 91 95 90 Respiratory Rate 23 H Blood Pressure 117/51 L Pulse Oximetry 97 Oxygen Delivery Oxygen Flow Rate Fraction of Inspired Oxygen 10/15/24 04:00 10/15/24 05:28 10/15/24 08:20 Temperature Pulse Rate 90 92 99 Respiratory Rate 23 H 16 Blood Pressure Pulse Oximetry 97 Oxygen Delivery BiPAP Oxygen Flow Rate Fraction of Inspired Oxygen 35 10/15/24 08:20 10/15/24 08:28 Temperature Pulse Rate 93 Respiratory Rate 16 Blood Pressure Pulse Oximetry 93 Oxygen Delivery Nasal Cannula Oxygen Flow Rate 3 Fraction of Inspired Oxygen Intake/Output Intake/Output: Intake & Output 10/12/24 10/13/24 10/14/24 10/15/24 23:59 23:59 23:59 23:59 Intake Total 200 Output Total 700 Balance -500 Meds/Results Medications: Active Medications Generic Name Dose Route Start Last Admin Trade Name Freq PRN Reason Stop Dose Admin Albuterol/Ipratropium 3 ml 10/14/24 20:00 10/15/24 08:18 Ipratropium 0.5 Mg/Albuterol Sulfate 2.5 Mg Ampul.Neb 3 Ml INHALATION 3 ml Q6HRT KELSI Administration Benzonatate 200 mg 10/15/24 00:00 Benzonatate 100 Mg Capsule PO TID PRN cough Enoxaparin Sodium 40 mg 10/15/24 09:00 Enoxaparin 40 Mg/0.4 Ml Syringe SUB-Q DAILY KELSI Fluticasone/Umeclidinium/Vilanterol 1 puff 10/15/24 08:00 10/15/24 08:18 Fluticasone/Umeclidin/Vilanter 200-62.5-25 Mcg Ellipta INHALATION 1 puff DAILYRT KELSI Administration Furosemide 40 mg 10/15/24 09:00 Furosemide Inj 40 Mg/4 Ml Vial IV PUSH DAILY KELSI Loratadine 10 mg 10/15/24 09:00 Loratadine 10 Mg Tablet PO DAILY KELSI Ondansetron HCl 4 mg 10/14/24 19:27 Ondansetron Inj 4 Mg/2 Ml Vial IV PUSH Q6H PRN Nausea And Vomiting Perflutren Lipid Microsphere 0 ml 10/14/24 21:27 Perflutren Lipid Microspheres 1.5 Ml Vial Diluted To 10 Ml Total Volume IV PUSH 10/17/24 21:27 ONCE PRN adequate visualization Protocol Potassium Chloride 10 meq 10/15/24 09:00 Potassium Chloride 10 Meq Er Tablet PO DAILY [facility] Prednisone 40 mg 10/15/24 09:00 Prednisone 20 Mg Tablet PO 10/15/24 09:01 ONCE ONE Radiology Results: ITS Impressions Chest X-Ray 10/14/24 15:04 IMPRESSION: 1. Likely congestive heart failure with cardiomegaly, mild pulmonary edema with lower lung predominance and small right pleural effusion. Labs Labs: Laboratory Results - last 24 hr 10/14/24 10/14/24 10/14/24 14:42 15:56 16:24 WBC 8.5 RBC 7.37 H Hgb 19.7 H Hct 67.0 H MCV 90.9 MCH 26.7 MCHC 29.4 L RDW 19.0 H Plt Count 107 L MPV 10.1 Immature Gran % (Auto) 0.5 Neut % (Auto) 87.6 H Lymph % (Auto) 7.9 L [place] % (Auto) 3.6 Eos % (Auto) 0.0 Baso % (Auto) 0.4 Lymph # (Auto) 0.67 L [place] # (Auto) 0.3 Eos # (Auto) 0.0 Baso # (Auto) 0.0 Abs Immat Gran (auto) 0.04 H Absolute Neuts (auto) 7.5 H Absolute Nucleated RBC 0.000 Band Neutrophils % Not Reportable Nucleated RBC % 0.0 Platelet Estimate Slightly decreased % Immature Plt Fraction 7.3 Hypochromasia 1+ Anisocytosis 1+ Schistocytes None seen PT 13.8 INR 1.0 APTT 23.0 Sodium 135 L Potassium 5.0 Chloride 95 L Carbon Dioxide 34 H Anion Gap 6 BUN 41 H D Creatinine 1.24 H Estim Creat Clear Calc 34 Estimated GFR 43 L Glucose 134 H Lactic Acid 1.9 Calcium 8.8 Total Bilirubin 0.8 AST 29 ALT 35 Alkaline Phosphatase 130 H NT-Pro-B Natriuret Pep 5630 H Total Protein 7.0 Albumin 4.3 Urine Color Yellow Urine Appearance Clear Urine pH 5.0 Ur Specific [place] 1.012 Urine Protein Negative Urine Glucose (UA) Negative Urine Ketones Negative Ur Blood (Man) Negative Urine Nitrate Negative Urine Bilirubin Negative Urine Urobilinogen 0.2 Leukocyte Esterase Rfl Negative Influenza A (RT-PCR) Negative Influenza B (RT-PCR) Negative RSV (RT-PCR) Negative SARS-CoV-2 RNA (RT-PCR) Negative 10/15/24 04:06 WBC 7.5 RBC 6.54 H Hgb 17.4 H Hct 59.6 H MCV 91.1 MCH 26.6 MCHC 29.2 L RDW 18.5 H Plt Count 94 L MPV 10.6 H Immature Gran % (Auto) 0.3 Neut % (Auto) 59.8 Lymph % (Auto) 28.2 [place] % (Auto) 11.2 H Eos % (Auto) 0.1 Baso % (Auto) 0.4 Lymph # (Auto) 2.12 [place] # (Auto) 0.8 H Eos # (Auto) 0.0 Baso # (Auto) 0.0 Abs Immat Gran (auto) 0.02 Absolute Neuts (auto) 4.5 Absolute Nucleated RBC 0.000 Band Neutrophils % 0 Nucleated RBC % 0.0 Platelet Estimate Slightly decreased % Immature Plt Fraction 7.3 Hypochromasia Anisocytosis 1+ Schistocytes None seen PT INR APTT Sodium 135 L Potassium 4.6 Chloride 97 L Carbon Dioxide 36 H Anion Gap 2 L BUN 33 H Creatinine 0.76 Estim Creat Clear Calc 63 Estimated GFR > 60 Glucose 85 Lactic Acid Calcium 8.7 Total Bilirubin 0.9 AST 25 ALT 25 Alkaline Phosphatase 78 NT-Pro-B Natriuret Pep Total Protein 6.0 L Albumin 3.3 L Urine Color Urine Appearance Urine pH Ur Specific [place] Urine Protein Urine Glucose (UA) Urine Ketones Ur Blood (Man) Urine Nitrate Urine Bilirubin Urine Urobilinogen Leukocyte Esterase Rfl Influenza A (RT-PCR) Influenza B (RT-PCR) RSV (RT-PCR) SARS-CoV-2 RNA (RT-PCR) Quality VTE Prophylaxis VTE prophylaxis: mechanical ordered
[2024-10-15] MEDS: predniSONE 20 MG TABLET 40 MG PO (09:18)
[2024-10-15] MEDS: POTASSIUM CHLORIDE 10 MEQ ER TABLET PO (09:18)
[2024-10-15] MEDS: FUROSEMIDE INJ 40 MG/4 ML VIAL IV PUSH (09:19)
[2024-10-15] MEDS: LORATADINE 10 MG TABLET PO (09:19)
--- NOTE | 2024-10-15 17:57 | P.CONPL_ITS ---
Assessment and Plan Assessment and plan (1) Acute hypoxemic respiratory failure: Code(s): J96.01 - Acute respiratory failure with hypoxia Status: Inactive Assessment and Plan: Saturation was 72% on arrival, now on 3 L saturation is 92%. Anticipate she will need oxygen on discharge. She likely has hypercarbia but we did not obtain a blood gas. She had elevated bicarbonate on her chemistry. Multifactorial, untreated obstructive sleep apnea, COPD, cardiac dysfunction. (2) Chronic obstructive pulmonary disease: Qualifiers: COPD type: unspecified COPD Qualified Code(s): J44.9 - Chronic obstructive pulmonary disease, unspecified Code(s): J44.9 - Chronic obstructive pulmonary disease, unspecified Status: Acute Assessment and Plan: Long standing diagnosis, no recent PFTs to review. She has diffuse wheezing, chronic cough sometimes with sputum production, most days well managed with Trelegy 100, 1 puff daily and albuterol inhaler 1 puff in the morning and nebulizer twice a day. She needs pulmonary function test, repeat 6 minute walk, home oxygen study prior to discharge. (3) Polycythemia secondary to hypoxia: Code(s): D75.1 - Secondary polycythemia Status: Acute Assessment and Plan: Elevated RBC 6.54, elevated H/H on admission 19.7/67%. She has untreated hypoxemia, persistent smoking around a pack per day, likely has untreated obstructive sleep apnea contributing to this. (4) Right ventricular dysfunction: Code(s): I51.9 - Heart disease, unspecified Status: Acute Assessment and Plan: She has decreased right ventricular function on echo. She has increased right ventricular size, biatrial enlargement, HFpEF. EF is 65%. There is no pulmonary hypertension on the current echo, the estimated PA systolic pressure is 28 mm Hg. She has no tricupid regurgitation on echo. Two years ago on August 22, 2022 echo showed severe pulmonary hypertension with a PA systolic pressure estimated at 62 mm Hg. She was critically ill that admission, on ventilator, continued to smoke, now has marked leg swelling with pitting edema, dyspnea with exertion and polycythemia. This admission she presented with acute renal insufficiency BUN was 41 creatinine 1.24 with a estimated GFR 43. This likely represents right heart dysfunction with poor forward flow. She has a dilated IVC on inspiration, consistent with high right atrial pressure > 10 mmHg. She meets criteria for right heart failure with clinical symptoms of shortness of breath, LE edema. She has such loud wheezing that the cardiac exam is difficult to obtain. I do not hear a murmur, cannot feel right heart heave. This is a new diagnosis for her. (5) Pulmonary hypertension: Code(s): I27.20 - Pulmonary hypertension, unspecified Status: Acute Assessment and Plan: She had elevated pulmonary arterial pressures on 08/22/2022 echo, 62 mmHg, current echo does not show the same however she clinically looks like right heart failure, has enlarged right ventricle, decreased right ventricular function, she has polycythemia, huge swollen lower legs. 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 This is secondary pulmonary hypertension due to lung disease and perhaps left heart failure with preserved EF. (6) Tobacco abuse: Code(s): Z72.0 - Tobacco use Status: Acute Assessment and Plan: Has smoked up to 2 and half 3 packs per day, has not ever had serious tobacco cessation except when she was in the hospital. At most longest time away from smoking is been 6 or 8 weeks and the last time was years ago. also smokes. Has smoked since age 17; 52 years mostly > 2 ppd, now down to 1 ppd smoking up until admission. Stopping smoking is the most important choice you can make for your health. There is a financial cost, as well as the impact on your health, health of family members and your pets. We recommend picking a quit date, eliminating tobacco from your house, finding alternative activities when you have a craving, and knowing that a craving lasts 5-6 minutes. Nicotine replacement therapy can be helpful, including patches, lozenges, gum and inhalers. 7-478-[phone] is a toll free number with a live person who will talk with you about stopping smoking. Plan plan: ABG in the morning. after using BiPAP 10/5; I lowered these setting; use with 3 L/min with sleep. . She has polycythemia with high H/H, high rbc mass, high serum bicarbonate, may qualify for either BiPAP or nppv at discharge. Will need Home O2 study before discharge. Stop duoneb, albuterol and ipratropium, replace with nebulized albuterol by itself q.6 hours while awake. I stopped the ipratropium because she is currently on Trelegy, this is a LAMA, does not need ipratropium. Duplicate of medication class. Oral steroid taper. ApneaLink prior to discharge to determine O2 need with sleep. Tobacco cessation counseling She has right ventricular dysfunction, biatrial enlargement, HFpEF. Will need further workup; may eventually need left and right heart cath. She will need Home O2, tobacco cessation, PFTs, pulmonary rehab. History of Present Illness History of Present Illness Consult date: 10/15/24 Requesting physician: Nicolas Harris MD Chief complaint: COPD, BiPAP Narrative: pt was seen October 15, 2024 at 19:50 Room 203 [facility] NEW: Marco A Sigala is a 68-year-old female admitted 10/14 with bilateral lower extremity edema and shortness of breath, worse with exertion. .recently seen by her PCP on 10/04 for a sick visit and diagnosed with a URI and COPD exacerbation. She called and spoke to her primary care, was prescribed Levaquin and Prednisone. She finished the antibiotic, almost finshed the steroids, developed large increase in lower extremity swelling which is new. She was already on diuretic daily. At this point she had an in-person visit at her primary care office. Treatment consisted of increasing frequency of her nebulized albuterol from twice a day to 4 times a day but she continued to have shortness of breath and leg swelling..Room air saturation was 72%, on 15 L saturation increased to 91%. She does not see pulmonary or cardiology. She was placed on BiPAP 05/27 & 100%, feels that she is able to sleep but the pressure is somewhat high. She has a frequent morning cough with sputum production, she wheezes day and night. Her exercise tolerance is very limited. She has enough reserve to walk across her living room, up 7 steps on a split level, come back down and walked to the kitchen for a cup of coffee. At that point she must stop and rest. At home she is maintained on Trelegy 1 puff a day, albuterol inhaler 1 puff a day and nebulizer with albuterol normally 2 times per day but in the last few days she has been on it 4 times a day. PMH: COPD with respiratory failure on the vent September 2023, went home on O2. A year later she was testing to re-qualify for oxygen but her saturation was high enough that she did not qualify so the oxygen was removed from her home. She really misses it and feels that she was able to breathe better using it.pulmonary hypertension, CHF, peripheral arterial disease, hyperlipidemia, prediabetes. Basal cell carcinoma removed. Chronic pain and dysfunction left shoulder and arm. Other diagnoses: prediabetes, hyperlipidemia, basal cell carcinoma s/p excision, peripheral arterial disease, DATA * wbc 7.5, H/H 17.4/59.6% HIGH with high RBC mass 6.54. Admission BMP = sodium 135, potassium 5.0, chloride 95, carbon dioxide 34, BUN 41, creatinine 1.24; BNP 5630. Alk phos 130. * 10/14/24 CXR; light improvement in the upper lungs of the previously seen diffuse increased interstitial pattern. Small right pleural effusion with blunting at the cardiophrenic and costophrenic angles. No pneumothorax. Cardiomegaly. IMPRESSION: Likely congestive heart failure with cardiomegaly, mild pulmonary edema with lower lung predominance and small right pleural effusion. Rad system is not displaying most recent CXR. I am using the radiologist's report. * 10/15/2024 echo; Complete two-dimensional, color flow and Doppler transthoracic echocardiogram is performed. 2. Left ventricular chamber dimension is normal. 3. Left ventricular systolic function is normal, estimated at 65-70%. 4. There is moderately increased left ventricular wall thickness. 5. The left ventricular diastolic function is grade I diastolic dysfunction. 6. D-shaped septum seen in both systole and diastole. 7. Right ventricular chamber dimension is mildly enlarged. 8. Right ventricular systolic function is reduced. 9. Left atrial chamber dimension is mildly enlarged. 10. Right atrial chamber dimension is mildly enlarged. 11. There is mild tricuspid valve regurgitation. 12. There is small pericardial effusion. No evidence of pulmonary hypertension, estimated PA systolic pressure 28 mm Hg. * 08/22/2022 echo = severe pulmonary artery hypertension with a PA systolic pressure estimated at 62 mm Hg. * 10/14/24 UA was normal, no protein, nothing abnormal. It looks too good to believe mora for prediabetes, CKD. Review of Systems 2 Review of Systems: All systems reviewed & are unremarkable except as noted in HPI and below [facility] Past Medical History Medical History CHF (congestive heart failure) Cigarette nicotine dependence with nicotine-induced disorder Pulmonary hypertension Chronic obstructive pulmonary disease Prediabetes A1c 5.8% in 2023 Allergic rhinitis Hx of skin cancer, basal cell R lower eyelid Hyperlipidemia, unspecified Surgical History Surgical History History of surgical removal of skin lesion History of tubal ligation 1988 History of D&C 1978 Family History Family History Mother Renal failure Father Cancer Acute myocardial infarction Heart disease Diabetes mellitus Sibling Diabetes mellitus Anemia Crohn's colitis Social History Social History Social History: according to her sister the patient smokes up to 2 packs of cigarettes a day. She has 3 children and is disabled. 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 According to her sister the patient used to drink heavily but has not drank recently. She has no dominated power insurance attorney. code status full code Smoking packs per day: 1.25 Smoking cigarettes per day: 25.0 Years smoked: 51 Smoking pack-years: 63.75 Smoking status: Current every day smoker Tobacco type: cigarettes Second hand tobacco smoke exposure: Yes Alcohol intake: current Drinks per week: 14 Alcohol use details: on occasion Substance use: former Substance use type: marijuana Do You Feel Safe in your Home?: Yes Lack of Transportation: No Lack of Food: Never True Current Housing: I Have Housing Concerned About Future Housing: No Difficulty Paying Gas/Electric Bills: YES Difficulty Paying for Meds: No Currently Unemployed: No Education: High School Diploma/GED Difficulty w/ Childcare or Family Care: No Living arrangements: with family Occupation/Education: unemployed Gender identity (if verbalized by the patient): Female Sexual Orientation (if Verbalized by the Patient): Straight or Heterosexual Spiritual care concerns: No Meds Home Medications and Allergies Home Medications ?Medication ?Instructions ?Recorded ?Confirmed ?Type loratadine 10 mg tablet (Claritin) 10 mg PO DAILY 09/09/23 10/14/24 History furosemide 20 mg tablet 20 mg PO DAILY #90 tabs 01/26/24 10/14/24 Rx potassium chloride 10 mEq 10 meq PO DAILY #90 tabs 01/26/24 10/14/24 Rx tablet,extended release fluticasone fur. 200 mcg-umeclid 1 inh inhalation DAILY #60 ea 09/14/24 10/14/24 Rx 62.5 mcg-vilant 25 mcg inhalat.powder (Trelegy Ellipta) benzonatate 200 mg capsule 200 mg PO TID PRN cough #30 caps 09/16/24 10/14/24 Rx albuterol sulfate 2.5 mg/3 mL 2.5 mg (3 mL) inhalation Q4HRT PRN 10/10/24 10/14/24 Rx (0.083 %) solution for nebulization Shortness Of Breath #30 mL albuterol sulfate 90 mcg/actuation 2 puff inhalation Q6-8H PRN 10/10/24 10/14/24 Rx aerosol inhaler shortness of breath or wheezing #6.7 grams [facility] 1 tablet BYMOUTH DAILY 10/14/24 10/14/24 History prednisone 20 mg tablet 20 mg PO .COMPLEX 10/14/24 10/14/24 History Allergies Allergy/AdvReac Type Severity Reaction Status Date / Time azithromycin Allergy Intermediate HIVES Verified 10/14/24 20:24 coconut Allergy Mild Hives Verified 10/14/24 20:24 acetaminophen AdvReac Mild abd Verified 10/14/24 20:24 cramping Vital Signs Vital Signs - 24 hr 10/14/24 18:01 10/14/24 18:05 10/14/24 18:16 Temperature Pulse Rate 103 H 106 H 95 Respiratory Rate 16 Blood Pressure 132/52 L 142/73 H Pulse Oximetry 96 Oxygen Delivery BiPAP Oxygen Flow Rate Fraction of Inspired Oxygen 10/14/24 18:31 10/14/24 18:46 10/14/24 19:01 Temperature Pulse Rate 99 102 H 97 Respiratory Rate 20 16 16 Blood Pressure 122/82 137/99 H 127/59 L Pulse Oximetry 97 100 100 Oxygen Delivery Oxygen Flow Rate Fraction of Inspired Oxygen 10/14/24 19:40 10/14/24 19:52 10/14/24 20:00 Temperature 36.3 C L Pulse Rate 107 H 101 H 98 Respiratory Rate 19 20 Blood Pressure 117/51 L Pulse Oximetry 96 95 Oxygen Delivery BiPAP Oxygen Flow Rate Fraction of Inspired Oxygen 10/14/24 20:05 10/14/24 20:23 10/14/24 20:29 Temperature Pulse Rate 107 H 94 94 Respiratory Rate 19 16 16 Blood Pressure Pulse Oximetry 96 95 Oxygen Delivery BiPAP BiPAP Oxygen Flow Rate Fraction of Inspired Oxygen 30 10/14/24 20:30 10/14/24 22:00 10/14/24 23:10 Temperature Pulse Rate 95 92 94 Respiratory Rate 16 18 Blood Pressure Pulse Oximetry 93 Oxygen Delivery BiPAP Oxygen Flow Rate Fraction of Inspired Oxygen 30 10/14/24 23:58 10/15/24 00:00 10/15/24 00:00 Temperature 36.4 C L Pulse Rate 90 94 87 Respiratory Rate 17 18 Blood Pressure 127/56 L Pulse Oximetry 93 93 Oxygen Delivery BiPAP Oxygen Flow Rate Fraction of Inspired Oxygen 10/15/24 01:40 10/15/24 01:43 10/15/24 01:46 Temperature Pulse Rate 93 90 89 Respiratory Rate 16 13 15 Blood Pressure Pulse Oximetry 89 L Oxygen Delivery BiPAP Oxygen Flow Rate Fraction of Inspired Oxygen 10/15/24 02:00 10/15/24 04:00 10/15/24 04:00 Temperature 36.4 C L Pulse Rate 91 95 90 Respiratory Rate 23 H Blood Pressure 117/51 L Pulse Oximetry 97 Oxygen Delivery Oxygen Flow Rate Fraction of Inspired Oxygen 10/15/24 04:00 10/15/24 05:28 10/15/24 08:00 Temperature 36.4 C L Pulse Rate 90 92 91 Respiratory Rate 23 H 24 H Blood Pressure 123/45 L Pulse Oximetry 97 93 Oxygen Delivery BiPAP Oxygen Flow Rate Fraction of Inspired Oxygen 35 10/15/24 08:00 10/15/24 08:20 10/15/24 08:20 Temperature Pulse Rate 93 99 Respiratory Rate 16 Blood Pressure Pulse Oximetry 93 Oxygen Delivery Nasal Cannula Oxygen Flow Rate 3 Fraction of Inspired Oxygen 10/15/24 08:28 10/15/24 10:00 10/15/24 12:00 Temperature Pulse Rate 93 88 103 H Respiratory Rate 16 Blood Pressure Pulse Oximetry Oxygen Delivery Oxygen Flow Rate Fraction of Inspired Oxygen 10/15/24 12:00 10/15/24 13:19 10/15/24 13:26 Temperature 36.4 C L Pulse Rate 90 98 102 H Respiratory Rate 16 16 16 Blood Pressure 125/47 L Pulse Oximetry 92 Oxygen Delivery Oxygen Flow Rate Fraction of Inspired Oxygen 10/15/24 14:00 10/15/24 16:00 10/15/24 16:00 Temperature 36.9 C Pulse Rate 94 98 92 Respiratory Rate 24 H Blood Pressure 116/50 L Pulse Oximetry 94 Oxygen Delivery Oxygen Flow Rate Fraction of Inspired Oxygen 10/15/24 17:56 Temperature Pulse Rate 110 H Respiratory Rate Blood Pressure Pulse Oximetry Oxygen Delivery Oxygen Flow Rate Fraction of Inspired Oxygen Exam 2 Narrative: GEN: Alert, oriented, not in distress. Oxygen nasal cannula saturation 92% on 3 L; she has a moist wheezy cough HEENT: pupils are equal, EOMI, symmetrical face; oral membranes moist, Mallampati IV airway, poor dentition NECK: Trachea is midline CHEST: Hyperinflated thorax, equal air entry, symmetric excursion, diffuse wheezing, prolonged expiration CV: Regular S1S2 no m/g/r ABD : (+) bowel sounds Extremities : no clubbing, nancie fingertips, 3+ lower extremity edema, PSYCH: Poor memory, she struggles with word finding; speech is fluent, cooperative historian, gait is not tested Results Laboratory Findings 10/15/24 04:06 10/15/24 04:06 ABG, PT/INR, D-dimer: PT/INR, D-dimer PT 13.8 Seconds (11.1-14.7) 10/14/24 15:56 INR 1.0 10/14/24 15:56 Abnormal lab findings: Abnormal Labs 10/14/24 10/15/24 14:42 04:06 RBC 7.37 H 6.54 H Hgb 19.7 H 17.4 H Hct 67.0 H 59.6 H MCHC 29.4 L 29.2 L RDW 19.0 H 18.5 H Plt Count 107 L 94 L MPV 10.6 H Neut % (Auto) 87.6 H Lymph % (Auto) 7.9 L Dodge % (Auto) 11.2 H Lymph # (Auto) 0.67 L Dodge # (Auto) 0.8 H Abs Immat Gran (auto) 0.04 H Absolute Neuts (auto) 7.5 H Sodium 135 L 135 L Chloride 95 L 97 L Carbon Dioxide 34 H 36 H Anion Gap 2 L BUN 41 H D 33 H Creatinine 1.24 H Estimated GFR 43 L Glucose 134 H Alkaline Phosphatase 130 H NT-Pro-B Natriuret Pep 5630 H Total Protein 6.0 L Albumin 3.3 L
[2024-10-16] VITALS (17 sets, daily range): BP systolic 116–146; BP diastolic 48–65; PULSE 89–105; RESP 13–24; TEMP 36.3–36.6; O2SAT 88–92
[2024-10-16] MEDS: ALBUTEROL SULFATE NEB 2.5 MG/3 ML INH INHALATION ×3 (01:54→13:30)
--- NOTE | 2024-10-16 06:00 | PCRCNOTE ---
AM ABG not obtained. Patient could not tolerate her bipap.
[2024-10-16] MEDS: FLUTICASONE/UMECLIDIN/VILANTER 200-62.5-25 MCG ELLIPTA 1 PUFF INHALATION (07:28)
[2024-10-16] MEDS: predniSONE 10 MG TABLET 50 MG PO (09:09)
[2024-10-16] MEDS: POTASSIUM CHLORIDE 10 MEQ ER TABLET PO (09:09)
[2024-10-16] MEDS: LORATADINE 10 MG TABLET PO (09:09)
[2024-10-16] MEDS: FUROSEMIDE INJ 40 MG/4 ML VIAL IV PUSH (09:09)
--- NOTE | 2024-10-16 09:25 | PM.IMPN ---
Progress Note: A&P Assessment and Plan (1) Hypoxia: Code(s): R09.02 - Hypoxemia Status: Acute Assessment and Plan: - 72% on room air at arrival -> 91% on 15L -> 100% on BiPAP - CXR showed Likely congestive heart failure with cardiomegaly, mild pulmonary edema with lower lung predominance and small right pleural effusion. - BNP elevated, may have component of CHF exacerbation. Update echo, see below. - History of severe COPD, previously required supplemental oxygen but had a negative 6 minute walk test in 2023. Recently saw her PCP on 10/04/2024 with similar complaints, started on prednisone and Levaquin. May also be component to patient's hypoxia, see below. 10/16/2024 Patient is feeling much better now. Plan is to continue current treatment monitor closely. (2) CHF (congestive heart failure): Qualifiers: Heart failure chronicity: acute on chronic Heart failure type: diastolic Qualified Code(s): I50.33 - Acute on chronic diastolic (congestive) heart failure Code(s): I50.9 - Heart failure, unspecified Status: Acute Assessment and Plan: - BNP 5630 - most recent echo (08/22/22): Hyperdynamic systolic function, estimated EF > 70%, diastolic function is indeterminate, severe pulmonary hypertension, see report for full details. - update echo - currently on: Lasix 20 mg daily, will continue as Lasix 40 mg IV daily - monitor I&Os and daily weights - trend renal function 10/16/2024 Patient is feeling much better now. X-rays treat use mild edema. Will continue with diuresis. (3) Chronic obstructive pulmonary disease: Qualifiers: COPD type: unspecified COPD Qualified Code(s): J44.9 - Chronic obstructive pulmonary disease, unspecified Code(s): J44.9 - Chronic obstructive pulmonary disease, unspecified Status: Acute Assessment and Plan: - [facility] - prednisone 40 mg PO x1 tomorrow to complete course started 10 days ago for exacerbation. will hold on continuing steroid course as the patient is not wheezing. - continue home medications 10/16/2024 Patient is improving gradually. Will continue with nebulizer treatments stated. Plan Acute respiratory failure likely multifactorial including COPD and CHF. Patient recently treated for a COPD exacerbation 10 days ago. Prescribed prednisone taper, suspect increased volume retention secondary to steroid use. Patient has 1 more dose of prednisone, will give tomorrow. No wheezing on exam, however hypoxic at arrival. Will continue DuoNeb scheduled. Additionally plan to increase diuretic from 20 mg p.o. daily to 40 mg IV daily. Awaiting updated echo. Diet: Heart healthy GI Prophylaxis: Not currently indicated DVT Prophylaxis: IV fluids: None Lines/Tubes: Peripheral IV Code Status: DNR Subjective Date/time seen: 10/16/24 09:25 Interval history: Patient was seen during the morning today. No new overnight complaints. Mild shortness of breath. No Chest pain. No abdominal pain, nausea, no vomiting. Review of Systems Review of Systems: All systems reviewed & are unremarkable except as noted in HPI and below Exam Narrative: coarse exp rub more prominenet in the bilateral bases. 2+ pitting edema, symm. Const: General: comfortable and no acute distress Other: , female, nontoxic appearance HENMT: Face/Nose/Sinus: Normal nares present Mouth: Yes dry mucous membranes (BiPAP in place) Eyes: General: appearance normal, both eyes and all related structures Sclera: sclerae normal Pupils: Equal, round and reactive pupils present EOM: EOMs intact bilaterally Resp: Effort & Inspection: normal respiratory effort Other: Coarse expiratory rub bibasilar. No wheezing. Moderate to good air movement in all lung garcia. Cardio: Rate: regular rate Rhythm: regular rhythm Other: S1-S2 present without murmur, rub, ectopy GI: Other: Abdomen soft, nondistended, nontender. Normoactive bowel sounds in all quadrants. Skin: General skin exam: normal color and no rashes or lesions noted Wounds: no wounds Neuro: Cranial nerves: Yes Equal, round and reactive pupils present Speech: normal speech Motor exam (neuro): 5/5 motor strength present throughout Sensory Exam: normal sensation Other: A&O x4 Extrem: Other: 2+ pitting edema to bilateral lower extremities extending to mid calf, symmetric. Psych: Mental Status: mental status grossly normal Affect: normal affect Other: Good insight and judgment, pleasant Objective Data Vital Signs Vital Signs: Vital Signs - 24 hr 10/15/24 10:00 10/15/24 12:00 10/15/24 12:00 Temperature 36.4 C L Pulse Rate 88 103 H 90 Respiratory Rate 16 Blood Pressure 125/47 L Pulse Oximetry 92 Oxygen Delivery Oxygen Flow Rate Fraction of Inspired Oxygen 10/15/24 13:19 10/15/24 13:26 10/15/24 14:00 Temperature Pulse Rate 98 102 H 94 Respiratory Rate 16 16 Blood Pressure Pulse Oximetry Oxygen Delivery Oxygen Flow Rate Fraction of Inspired Oxygen 10/15/24 16:00 10/15/24 16:00 10/15/24 17:56 Temperature 36.9 C Pulse Rate 98 92 110 H Respiratory Rate 24 H Blood Pressure 116/50 L Pulse Oximetry 94 Oxygen Delivery Oxygen Flow Rate Fraction of Inspired Oxygen 10/15/24 19:42 10/15/24 19:53 10/15/24 20:00 Temperature 36.6 C Pulse Rate 101 H 101 H 106 H Respiratory Rate 20 20 18 Blood Pressure 116/46 L Pulse Oximetry 91 Oxygen Delivery Oxygen Flow Rate Fraction of Inspired Oxygen 10/15/24 20:00 10/15/24 20:08 10/15/24 20:50 Temperature Pulse Rate 111 H 106 H Respiratory Rate 18 Blood Pressure Pulse Oximetry 92 91 Oxygen Delivery Nasal Cannula Nasal Cannula Oxygen Flow Rate 3 4 Fraction of Inspired Oxygen 10/15/24 22:00 10/16/24 00:00 10/16/24 00:00 Temperature 36.6 C Pulse Rate 102 H 90 90 Respiratory Rate 14 14 Blood Pressure 116/51 L Pulse Oximetry 90 90 Oxygen Delivery BiPAP Oxygen Flow Rate Fraction of Inspired Oxygen 35 10/16/24 00:00 10/16/24 00:25 10/16/24 01:45 Temperature Pulse Rate 91 94 89 Respiratory Rate 13 Blood Pressure Pulse Oximetry 88 L Oxygen Delivery BiPAP Oxygen Flow Rate Fraction of Inspired Oxygen 10/16/24 01:54 10/16/24 02:02 10/16/24 04:00 Temperature 36.6 C Pulse Rate 101 H 101 H 90 Respiratory Rate 20 20 17 Blood Pressure 131/50 L Pulse Oximetry 91 Oxygen Delivery Oxygen Flow Rate Fraction of Inspired Oxygen 10/16/24 04:00 10/16/24 04:00 10/16/24 05:45 Temperature Pulse Rate 90 95 94 Respiratory Rate 17 Blood Pressure Pulse Oximetry 91 Oxygen Delivery Nasal Cannula Oxygen Flow Rate 4 Fraction of Inspired Oxygen 10/16/24 07:28 10/16/24 07:28 10/16/24 07:42 Temperature Pulse Rate 92 96 Respiratory Rate 20 20 Blood Pressure Pulse Oximetry 92 Oxygen Delivery Nasal Cannula Oxygen Flow Rate 4 Fraction of Inspired Oxygen 10/16/24 08:00 10/16/24 08:00 Temperature 36.6 C Pulse Rate 93 93 Respiratory Rate 20 20 Blood Pressure 137/56 L Pulse Oximetry 92 92 Oxygen Delivery Nasal Cannula Oxygen Flow Rate 4 Fraction of Inspired Oxygen Intake/Output Intake/Output: Intake & Output 10/13/24 10/14/24 10/15/24 10/16/24 23:59 23:59 23:59 23:59 Intake Total 680 490 Output Total 2400 440 Balance -1720 50 Meds/Results Medications: Active Medications Generic Name Dose Route Start Last Admin Trade Name Freq PRN Reason Stop Dose Admin Albuterol 2.5 mg 10/16/24 02:00 10/16/24 07:28 Albuterol Sulfate Neb 2.5 Mg/3 Ml Inh INHALATION 2.5 mg Q6HRT BARRIE Administration Benzonatate 200 mg 10/15/24 00:00 Benzonatate 100 Mg Capsule PO TID PRN cough Fluticasone/Umeclidinium/Vilanterol 1 puff 10/15/24 08:00 10/16/24 07:28 Fluticasone/Umeclidin/Vilanter 200-62.5-25 Mcg Ellipta INHALATION 1 puff DAILYRT BARRIE Administration Furosemide 40 mg 10/15/24 09:00 10/16/24 09:09 Furosemide Inj 40 Mg/4 Ml Vial IV PUSH 40 mg DAILY BARRIE Administration Levofloxacin 250 mg 10/17/24 09:00 Levofloxacin 250 Mg Tablet PO DAILY BARRIE Loratadine 10 mg 10/15/24 09:00 10/16/24 09:09 Loratadine 10 Mg Tablet PO 10 mg DAILY BARRIE Administration Perflutren Lipid Microsphere 0 ml 10/14/24 21:27 Perflutren Lipid Microspheres 1.5 Ml Vial Diluted To 10 Ml Total Volume IV PUSH 10/17/24 21:27 ONCE PRN adequate visualization Protocol Potassium Chloride 10 meq 10/15/24 09:00 10/16/24 09:09 Potassium Chloride 10 Meq Er Tablet PO 10 meq DAILY BARRIE Administration Prednisone 50 mg 10/16/24 08:00 10/16/24 09:09 Prednisone 10 Mg Tablet PO 10/31/24 07:59 50 mg DAILY@0800 BARRIE Administration Taper Radiology Results: ITS Impressions Chest X-Ray 10/16/24 08:15 IMPRESSION: 1. Persistent opacities in the posterior lower lungs, most likely combination of mild pulmonary edema and atelectasis although differential includes pneumonia. 2. Small bilateral pleural effusions. 3. Cardiomegaly with pulmonary vascular congestion. Quality VTE Prophylaxis VTE prophylaxis: mechanical ordered
[2024-10-16] MEDS: levoFLOXacin 250 MG TABLET PO (10:50)
--- NOTE | 2024-10-16 12:16 | PM.CNCAR ---
Assessment and Plan Assessment and plan (1) CHF (congestive heart failure): Qualifiers: Heart failure chronicity: acute on chronic Heart failure type: diastolic Qualified Code(s): I50.33 - Acute on chronic diastolic (congestive) heart failure Code(s): I50.9 - Heart failure, unspecified Status: Acute Assessment and Plan: Due to acute on chronic diastolic heart failure and with pressure and volume overload from right heart dysfunction without pulm hypertension as measured on echo Due to COPD and diastolic dysfunction. 10/15/24 Echo: EF 65-70%, mod LVH, grade I diastolic dysfunction, mild RVE/hypokinesis, mild biatrial enlargement, mild TR, small pericardial effusion. Continue with Lasix 40 mg IV daily. Stop KCl. She is -4L balance. Will add Spironolactone if diuresis slows down and if renal function remains OK. (2) Tobacco abuse: Code(s): Z72.0 - Tobacco use Status: Acute Assessment and Plan: Counseled regarding smoking cessation. (3) Chronic obstructive pulmonary disease: Qualifiers: COPD type: unspecified COPD Qualified Code(s): J44.9 - Chronic obstructive pulmonary disease, unspecified Code(s): J44.9 - Chronic obstructive pulmonary disease, unspecified Status: Acute Assessment and Plan: On oxygen and nebs. History of Present Illness History of Present Illness Consult date/time: 10/16/24 12:16 Reason For Visit: COPD, BiPAP Narrative: 68 yr old woman presented to ER with sob and edema. She has a history of diastolic dysfunction, COPD, smoking. Reports she noted some sob but main complaint was edema of both legs in last several days. She is limited at walking short distances due to WHITLEY. Since given IV lasix she no longer has sob, and noted improved edema of both legs. She smokes 1 ppd. Denies chest pain, orthopnea, PND, dizziness, palpitations. Review of Systems Constitutional: Constitutional: Reports as per HPI, Denies chills, Reports fatigue and Denies fever(s) Cardiovascular: Cardiovascular: Reports as per HPI, Denies chest pain and Denies irregular heart rhythm Respiratory: Respiratory: Reports as per HPI and Reports dyspnea Gastrointestinal: Gastrointestinal: Reports as per HPI and Denies abdominal pain Genitourinary: Genitourinary: Reports as per HPI and Denies dysuria Musculoskeletal: Musculoskeletal: Reports as per HPI Neurologic: Reports as per HPI, Denies dizziness and Denies syncope [facility] Past Medical History Medical History CHF (congestive heart failure) Cigarette nicotine dependence with nicotine-induced disorder Pulmonary hypertension Chronic obstructive pulmonary disease Prediabetes A1c 5.8% in 2023 Allergic rhinitis Hx of skin cancer, basal cell R lower eyelid Hyperlipidemia, unspecified Surgical History Surgical History History of surgical removal of skin lesion History of tubal ligation 1988 History of D&C 1978 Family History Family History Mother Renal failure Father Cancer Acute myocardial infarction Heart disease Diabetes mellitus Sibling Diabetes mellitus Anemia Crohn's colitis Social History Social History Social History: according to her sister the patient smokes up to 2 packs of cigarettes a day. She has 3 children and is disabled. 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 According to her sister the patient used to drink heavily but has not drank recently. 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 code status full code Smoking packs per day: 1.25 Smoking cigarettes per day: 25.0 Years smoked: 51 Smoking pack-years: 63.75 Smoking status: Current every day smoker Tobacco type: cigarettes Second hand tobacco smoke exposure: Yes Alcohol intake: current Drinks per week: 14 Alcohol use details: on occasion Substance use: former Substance use type: marijuana Do You Feel Safe in your Home?: Yes Lack of Transportation: No Lack of Food: Never True Current Housing: I Have Housing Concerned About Future Housing: No Difficulty Paying Gas/Electric Bills: YES Difficulty Paying for Meds: No Currently Unemployed: No Education: High School Diploma/GED Difficulty w/ Childcare or Family Care: No Living arrangements: with family Occupation/Education: unemployed Gender identity (if verbalized by the patient): Female Sexual Orientation (if Verbalized by the Patient): Straight or Heterosexual Spiritual care concerns: No Meds Home Medications and Allergies Home Medications ?Medication ?Instructions ?Recorded ?Confirmed ?Type loratadine 10 mg tablet (Claritin) 10 mg PO DAILY 09/09/23 10/14/24 History furosemide 20 mg tablet 20 mg PO DAILY #90 tabs 01/26/24 10/14/24 Rx potassium chloride 10 mEq 10 meq PO DAILY #90 tabs 01/26/24 10/14/24 Rx tablet,extended release fluticasone fur. 200 mcg-umeclid 1 inh inhalation DAILY #60 ea 09/14/24 10/14/24 Rx 62.5 mcg-vilant 25 mcg inhalat.powder (Trelegy Ellipta) benzonatate 200 mg capsule 200 mg PO TID PRN cough #30 caps 09/16/24 10/14/24 Rx albuterol sulfate 2.5 mg/3 mL 2.5 mg (3 mL) inhalation Q4HRT PRN 10/10/24 10/14/24 Rx (0.083 %) solution for nebulization Shortness Of Breath #30 mL albuterol sulfate 90 mcg/actuation 2 puff inhalation Q6-8H PRN 10/10/24 10/14/24 Rx aerosol inhaler shortness of breath or wheezing #6.7 grams [employer] 1 tablet BYMOUTH DAILY 10/14/24 10/14/24 History prednisone 20 mg tablet 20 mg PO .COMPLEX 10/14/24 10/14/24 History Allergies Allergy/AdvReac Type Severity Reaction Status Date / Time azithromycin Allergy Intermediate HIVES Verified 10/14/24 20:24 coconut Allergy Mild Hives Verified 10/14/24 20:24 acetaminophen AdvReac Mild abd Verified 10/14/24 20:24 cramping Vital Signs Vital Signs - 24 hr 10/15/24 13:19 10/15/24 13:26 10/15/24 14:00 Temperature Pulse Rate 98 102 H 94 Respiratory Rate 16 16 Blood Pressure Pulse Oximetry Oxygen Delivery Oxygen Flow Rate Fraction of Inspired Oxygen 10/15/24 16:00 10/15/24 16:00 10/15/24 17:56 Temperature 98.5 F Pulse Rate 98 92 110 H Respiratory Rate 24 H Blood Pressure 116/50 L Pulse Oximetry 94 Oxygen Delivery Oxygen Flow Rate Fraction of Inspired Oxygen 10/15/24 19:42 10/15/24 19:53 10/15/24 20:00 Temperature 97.9 F Pulse Rate 101 H 101 H 106 H Respiratory Rate 20 20 18 Blood Pressure 116/46 L Pulse Oximetry 91 Oxygen Delivery Oxygen Flow Rate Fraction of Inspired Oxygen 10/15/24 20:00 10/15/24 20:08 10/15/24 20:50 Temperature Pulse Rate 111 H 106 H Respiratory Rate 18 Blood Pressure Pulse Oximetry 92 91 Oxygen Delivery Nasal Cannula Nasal Cannula Oxygen Flow Rate 3 4 Fraction of Inspired Oxygen 10/15/24 22:00 10/16/24 00:00 10/16/24 00:00 Temperature 97.9 F Pulse Rate 102 H 90 90 Respiratory Rate 14 14 Blood Pressure 116/51 L Pulse Oximetry 90 90 Oxygen Delivery BiPAP Oxygen Flow Rate Fraction of Inspired Oxygen 35 10/16/24 00:00 10/16/24 00:25 10/16/24 01:45 Temperature Pulse Rate 91 94 89 Respiratory Rate 13 Blood Pressure Pulse Oximetry 88 L Oxygen Delivery BiPAP Oxygen Flow Rate Fraction of Inspired Oxygen 10/16/24 01:54 10/16/24 02:02 10/16/24 04:00 Temperature 98 F Pulse Rate 101 H 101 H 90 Respiratory Rate 20 20 17 Blood Pressure 131/50 L Pulse Oximetry 91 Oxygen Delivery Oxygen Flow Rate Fraction of Inspired Oxygen 10/16/24 04:00 10/16/24 04:00 10/16/24 05:45 Temperature Pulse Rate 90 95 94 Respiratory Rate 17 Blood Pressure Pulse Oximetry 91 Oxygen Delivery Nasal Cannula Oxygen Flow Rate 4 Fraction of Inspired Oxygen 10/16/24 07:28 10/16/24 07:28 10/16/24 07:42 Temperature Pulse Rate 92 96 Respiratory Rate 20 20 Blood Pressure Pulse Oximetry 92 Oxygen Delivery Nasal Cannula Oxygen Flow Rate 4 Fraction of Inspired Oxygen 10/16/24 08:00 10/16/24 08:00 10/16/24 08:00 Temperature 97.9 F Pulse Rate 93 93 105 H Respiratory Rate 20 20 Blood Pressure 137/56 L Pulse Oximetry 92 92 Oxygen Delivery Nasal Cannula Oxygen Flow Rate 4 Fraction of Inspired Oxygen 10/16/24 10:00 10/16/24 11:55 Temperature 97.5 F L Pulse Rate 95 92 Respiratory Rate 24 H Blood Pressure 141/54 H Pulse Oximetry 92 Oxygen Delivery Oxygen Flow Rate Fraction of Inspired Oxygen Exam Const: General: cooperative, healthy appearing and comfortable Resp: Auscultation: crackles, no rhonchi, no wheezes and diminished lung sounds Cardio: Rate: regular rate Rhythm: regular rhythm Heart sounds: no murmurs Peripheral pulses: dorsalis pedis present GI: GI Palp: No abdominal tenderness and Yes Soft to palpation Neuro: General: oriented to person, oriented to place and oriented to time Extrem: Right lower extremity: edema Left lower extremity: edema Other: Moderate edema of both legs and feet Results Labs and Meds 10/15/24 04:06 10/15/24 04:06 Lab results: Intake and Output 10/15/24 10/16/24 10/16/24 23:59 07:59 15:59 Intake Total 250 240 Output Total 50 440 2300 Balance -50 Intake: Oral 250 240 Output: Urine 2300 Catheter Urine 50 440 External/Condom 50 440 Other: Number of Bowel Movements Today 1 Patient Weight 10/16/24 23:59 Weight 75.8 kg
--- NOTE | 2024-10-16 12:49 | PC.NURSE ---
This patient, Marco A Sigala, was transferred to [[facility] ] on 10/16/24 at 1249. Personal belongings sent with patient. Report given to [RAGHU Queen @ [phone] ]. Appropriate documentation sent with patient.
--- NOTE | 2024-10-16 13:37 | PC.NURSE ---
This patient, Marco A Sigala, was received from room [facility] on 10/16/24 at 1255. Patient/family oriented to unit policies and routines. Patient orientated to call light and its use and educated to call for assistance or questions. Call light within reach.
--- NOTE | 2024-10-25 14:53 | PM.DS ---
DS: Admitting Diagnosis Discharge Date 10/16/24 Admitting Diagnosis Hypoxia DS: Discharge Diagnosis Discharge Diagnosis (1) Hypoxia: Code(s): R09.02 - Hypoxemia Status: Acute Assessment and Plan: - 72% on room air at arrival -> 91% on 15L -> 100% on BiPAP - CXR showed Likely congestive heart failure with cardiomegaly, mild pulmonary edema with lower lung predominance and small right pleural effusion. - BNP elevated, may have component of CHF exacerbation. Update echo, see below. - History of severe COPD, previously required supplemental oxygen but had a negative 6 minute walk test in 2023. Recently saw her PCP on 10/04/2024 with similar complaints, started on prednisone and Levaquin. May also be component to patient's hypoxia, see below. 10/16/2024 Patient is feeling much better now. Plan is to continue current treatment monitor closely. (2) CHF (congestive heart failure): Qualifiers: Heart failure chronicity: acute on chronic Heart failure type: diastolic Qualified Code(s): I50.33 - Acute on chronic diastolic (congestive) heart failure Code(s): I50.9 - Heart failure, unspecified Status: Acute Assessment and Plan: - BNP 5630 - most recent echo (08/22/22): Hyperdynamic systolic function, estimated EF > 70%, diastolic function is indeterminate, severe pulmonary hypertension, see report for full details. - update echo - currently on: Lasix 20 mg daily, will continue as Lasix 40 mg IV daily - monitor I&Os and daily weights - trend renal function 10/16/2024 Patient is feeling much better now. X-rays treat use mild edema. Will continue with diuresis. (3) Chronic obstructive pulmonary disease: Qualifiers: COPD type: unspecified COPD Qualified Code(s): J44.9 - Chronic obstructive pulmonary disease, unspecified Code(s): J44.9 - Chronic obstructive pulmonary disease, unspecified Status: Acute Assessment and Plan: - Candi dolan - prednisone 40 mg PO x1 tomorrow to complete course started 10 days ago for exacerbation. will hold on continuing steroid course as the patient is not wheezing. - continue home medications 10/16/2024 Patient is improving gradually. Will continue with nebulizer treatments stated. Plan Acute respiratory failure likely multifactorial including COPD and CHF. Patient recently treated for a COPD exacerbation 10 days ago. Prescribed prednisone taper, suspect increased volume retention secondary to steroid use. Patient has 1 more dose of prednisone, will give tomorrow. No wheezing on exam, however hypoxic at arrival. Will continue DuoNeb scheduled. Additionally plan to increase diuretic from 20 mg p.o. daily to 40 mg IV daily. Awaiting updated echo. Diet: Heart healthy GI Prophylaxis: Not currently indicated DVT Prophylaxis: IV fluids: None Lines/Tubes: Peripheral IV Code Status: DNR DS: Summary Hospital Course Hospital Course: 62 years old female with history of CHF and copd was admitted because of sob. Patient was treated medically. According to patient wishes Hospice was consulted and discharged under hospice care Status at Discharge Cognitive/behavioral status at discharge: Stable Time Spent with Patient Time attestation: Total time spent providing and/or coordinating discharge services: 30 minutes Exam Narrative: coarse exp rub more prominenet in the bilateral bases. 2+ pitting edema, symm. Const: General: comfortable and no acute distress Other: , female, nontoxic appearance HENMT: Face/Nose/Sinus: Normal nares present Mouth: Yes dry mucous membranes (BiPAP in place) Eyes: General: appearance normal, both eyes and all related structures Sclera: sclerae normal Pupils: Equal, round and reactive pupils present EOM: EOMs intact bilaterally Resp: Effort & Inspection: normal respiratory effort Other: Coarse expiratory rub bibasilar. No wheezing. Moderate to good air movement in all lung garcia. Cardio: Rate: regular rate Rhythm: regular rhythm Other: S1-S2 present without murmur, rub, ectopy GI: Other: Abdomen soft, nondistended, nontender. Normoactive bowel sounds in all quadrants. Skin: General skin exam: normal color and no rashes or lesions noted Wounds: no wounds Neuro: Cranial nerves: Yes Equal, round and reactive pupils present Speech: normal speech Motor exam (neuro): 5/5 motor strength present throughout Sensory Exam: normal sensation Other: A&O x4 Extrem: Other: 2+ pitting edema to bilateral lower extremities extending to mid calf, symmetric. Psych: Mental Status: mental status grossly normal Affect: normal affect Other: Good insight and judgment, pleasant Discharge Plan Discharge Attending physician on discharge: Nicolas Harris Consulting providers: Montserrat Jackson; Eddie Gil; Jayde Walsh; Teodoro Juárez; Ronaldo Rosales Discharging Clinician: Nicolas Harris Patient Disposition: Hospice - Home Activity: as tolerated Diet: heart healthy Discharge Instructions: Medication reconcile as per hospice Patient Instructions: Antibiotic Form, Heart Failure (DC), Hypoxia (GEN) Patient Language: Divehi Stand Alone Forms: General Discharge Information Discharge Medications: Continued loratadine [Claritin] 10 mg tablet 10 mg PO DAILY [facility] 1 tablet BYMOUTH DAILY prednisone 20 mg tablet 20 mg PO .COMPLEX Rx Instructions: Take 2 tablets (40 mg total) by mouth daily for 5 days, then take 1 tablet (20 mg total) by mouth for 5 days. potassium chloride 10 mEq tablet extended release 10 meq PO DAILY Qty: 90 3RF furosemide 20 mg tablet 20 mg PO DAILY Qty: 90 3RF Trelegy Ellipta 200-62.5-25 mcg blister with device 1 inh inhalation DAILY Qty: 60 5RF benzonatate 200 mg capsule 200 mg PO TID PRN (Reason: cough) Qty: 30 0RF albuterol sulfate 2.5 mg /3 mL (0.083 %) solution for nebulization 2.5 mg inhalation Q4HRT PRN (Reason: Shortness Of Breath) Qty: 30 0RF albuterol sulfate 90 mcg/actuation HFA aerosol inhaler 2 puff inhalation Q6-8H PRN (Reason: shortness of breath or wheezing) Qty: 6.7 3RF Date of admission: 10/15/24 07:01 Primary Care Provider: Kevin Pizarro Admitting Provider: Nicolas Harris Attending physician on admission: Nicolas Harris Condition: Serious Quality VTE Prophylaxis VTE prophylaxis: mechanical ordered
== END 2024-10-16 18:10 | disposition hospice, home (50) | DRG 291 ==
LOC: ANHED 14:34 → ANHIMU 18:20 → ANH3MEDSUR 10-16 13:02
PROVIDERS: Student in an Organized Health Care Education/Training Program; Admitting Provider Internal Medicine; Emergency Provider Emergency Medicine; PCP Family Medicine; Visit Provider Internal Medicine
DX: I50.33 Acute on chronic diastolic (congestive) heart failure (principal); J96.01 Acute respiratory failure with hypoxia; J44.9 Chronic obstructive pulmonary disease, unspecified; I27.20 Pulmonary hypertension, unspecified; D75.1 Secondary polycythemia; E78.5 Hyperlipidemia, unspecified; R73.03 Prediabetes; F17.210 Nicotine dependence, cigarettes, uncomplicated; Z20.822 Contact with and (suspected) exposure to COVID-19; Z51.5 Encounter for palliative care
CPT/HCPCS: 36415; 71045; 71046; 80053; 81003; 83605; 83880; 85025; 85055; 85610; 85730; 87040; 87637; 93306; 94002; 94003; 94640; 96374; 96375; 99285; A9270; G0378; J1938; J7512